=== PATIENT | female | born 1955 | race Caucasian/White ===

== ENCOUNTER 2019-12-12 07:41 | Emergency (ER) | payer BC, SELFPAY ==
--- NOTE | ~2019-12-12 | XR_ITS ---
XR shoulder RT min 2V DATE: 12/12/2019 08:10 INDICATION: Fall 4 weeks ago. Persistent shoulder pain TECHNIQUE: 4 views COMPARISON: None FINDINGS: No fracture or dislocation, periosteal reaction or bone destruction or abnormal soft tissue calcification of the right shoulder. Diffuse osteopenia. There is scoliosis and diffuse idiopathic skeletal hyperostosis of the thoracic spine. IMPRESSION: Osteopenia No fracture or dislocation of the right shoulder Reviewed, dictated and finalized at location A.
[2019-12-12 07:45] VITALS: BP 129/52; PULSE 72; RESP 17; TEMP 36.5; O2SAT 96
--- NOTE | 2019-12-12 07:55 | ECG_ITS ---
Measurements Intervals [place] Rate: 75 P: 55 UT: 191 QRS: 22 QRSD: 158 T: 5 QT: 395 QTc: 443 Interpretive Statements SINUS RHYTHM RIGHT BUNDLE BRANCH BLOCK BASELINE WANDER- I, II, AVR, AVL, V1 ABNORMAL ECG Electronically Signed On 12-12-2019 8:18:23 CDT by Juan Sarmiento D.O.
--- NOTE | 2019-12-12 08:00 | ED.GENADULT ---
HPI - General Adult General Chief complaint: Extremity Injury, Upper Stated complaint: fall 4 wks ago/arm pain Time Seen by Provider: 12/12/19 07:47 Source: patient Mode of arrival: ambulatory Limitations: no limitations History of Present Illness HPI narrative: Patient is a 64-year-old female who presents for evaluation of right upper shoulder pain. Patient reports had a ground-level fall 4 weeks ago after slipping over a water bucket in her yard, and hitting her head. Patient sustained a small laceration to her right eye, experienced some shoulder pain, but had no loss of consciousness. Patient states that she has had intermittent right shoulder pain, worsened with movement since that fall. Pain sometimes radiates down the back of the arm into the elbow. She denies any neck pain. No current pain in her jaw. No chest pain, shortness of breath. No numbness or weakness. Patient has been ambulatory, she is able to hold objects, but notes if she raises her arm it elicits pain. She has been taking diclofenac with some improvement in her symptoms. Related Data Home Medications Medication Instructions Recorded Confirmed aspirin 81 mg tablet 81 mg PO DAILY 09/11/19 bupropion HCl 100 mg tablet,12 hr 100 mg PO BID 09/11/19 sustained-release cholecalciferol (vitamin D3) 25 1,000 unit PO DAILY 09/11/19 mcg (1,000 unit) tablet clotrimazole-betamethasone 1 1 applic TOPICAL BID 09/11/19 %-0.05 % topical cream conjugated estrogens 0.625 mg/gram 0.625 mg VAGINAL 2XW gm 09/11/19 vaginal cream cyanocobalamin (vitamin B-12) See Rx Instructions SUB-Q .COMPLEX 09/11/19 1,000 mcg/mL injection solution ergocalciferol (vitamin D2) 1,250 50,000 unit PO .COMPLEX 09/11/19 mcg (50,000 unit) capsule lancets 30 gauge #25 each 09/11/19 lansoprazole 15 mg capsule,delayed 15 mg PO DAILY 09/11/19 release latanoprost 0.005 % eye drops 1 drop EACH EYE QPM ml 09/11/19 levothyroxine 150 mcg tablet 150 mcg PO DAILY 09/11/19 meloxicam 7.5 mg tablet 7.5 mg PO DAILY 09/11/19 pravastatin 20 mg tablet 20 mg PO .COMPLEX 09/11/19 trazodone 50 mg tablet See Rx Instructions PO .COMPLEX 09/11/19 tablet Allergies Allergy/AdvReac Type Severity Reaction Status Date / Time morphine AdvReac Unknown Nausea and Verified 12/12/19 07:48 Vomiting Review of Systems Review of Systems: Narrative: CONSTITUTIONAL: Denies fever CARDIOVASCULAR: Denies chest pain RESPIRATORY: Denies cough or dyspnea. GASTROINTESTINAL: Denies abdominal pain SKIN: Denies rash MUSCULOSKELETAL: Reports right shoulder pain, denies upper, cervical neck pain, lower back pain NEUROLOGIC: Denies headache [facility] Past Medical History Medical History Diabetes mellitus FH: cholecystectomy (~1999) HLD (hyperlipidemia) HTN (hypertension) Hypothyroidism (acquired) Surgical History Surgical History H/O section (~1978) H/O section (~1983) H/O gastric bypass (~2006) H/O thyroidectomy Hx of cardiac cath (~2010) S/P foot surgery, left Family History Family History Father Family history of coronary artery disease Lung cancer Liver cancer COPD (chronic obstructive pulmonary disease) Mother Family history of chronic obstructive pulmonary disease Family history of congestive heart failure Social History Social History Smoking status: Never smoker Alcohol intake: never Exam Narrative: Exam Narrative: GENERAL: Awake, alert, conversant HEAD: Normocephalic, atraumatic. Spine: No cervical spine tenderness, no thoracic midline tenderness, no lumbar midline tenderness, no paraspinal tenderness of the cervical, thoracic or lumbar spine EYES: PERRLA and EOMI. ENT: Nares clear, no rhinorrhea or epistaxis. Mucous membranes mo
== END 2019-12-12 08:52 | disposition home or self-care (01) ==
PROVIDERS: Emergency Provider Emergency Medicine; PCP Emergency Medicine
DX: S46.911A Strain of unspecified muscle, fascia and tendon at shoulder and upper arm level, right arm, initial encounter (principal); I45.10 Unspecified right bundle-branch block; E11.9 Type 2 diabetes mellitus without complications; E78.5 Hyperlipidemia, unspecified; I10 Essential (primary) hypertension; E89.0 Postprocedural hypothyroidism; Z98.84 Bariatric surgery status; Z79.82 Long term (current) use of aspirin; W01.10XA Fall on same level from slipping, tripping and stumbling with subsequent striking against unspecified object, initial encounter
CPT/HCPCS: 73030; 93005; 99283

== ENCOUNTER 2020-06-04 08:36 | Outpatient (CLI) | payer BC, SELFPAY ==
--- NOTE | ~2020-06-04 | MM_ITS ---
EXAMINATION: MM screening [facility] BI w jr HISTORY: Screening mammogram, family history of breast cancer in her sister. TECHNIQUE: Craniocaudal and mediolateral oblique 3-D tomosynthesis images were obtained and synthetic 2-D images were generated. CAD analysis was submitted and interpreted. COMPARISON: 05/10/2019, 05/04/2018, 04/30/2017 BREAST PARENCHYMAL COMPOSITION: There are scattered areas of fibroglandular density. FINDINGS: A stable intramammary lymph node is noted in the upper outer quadrant of the right breast. There is no evidence of suspicious mass, calcification, or architectural distortion to suggest malign den in either breast. There has been no suspicious interval change. IMPRESSION: 1. No mammographic evidence of malignancy. 2. Recommend routine screening mammography in one year. BI-RADS Category 2: Benign finding(s). Reviewed, dictated and finalized at location A. LOGY MANAGER
== END 2020-06-04 08:37 | disposition home or self-care (01) ==
LOC: ANHIMG 08:38
PROVIDERS: PCP Emergency Medicine; Visit Provider Nurse Practitioner
DX: Z12.31 Encounter for screening mammogram for malignant neoplasm of breast (principal)
CPT/HCPCS: 77063; 77067

== ENCOUNTER 2020-07-01 07:53 | Outpatient (CLI) | payer MEDICARE, BC, SELFPAY ==
--- NOTE | 2020-08-14 13:19 | WPDHOMESLEEP ---
Sleep Study - Home Unattended Date of Study: 07/01/20 Ordering Provider: Alaina Bueno MD Interpreting Physician: Alaina Bueno MD Home Sleep Study Type: Apnea Link Air Height: 1.63 m Weight: 127.006 kg Body Mass Index: 48.0 Neck Circumference (inches): 14 [place]: 17 Reason for Sleep Study Hypersomnolence Sleep History Danita Atkins is a 65 year old female with constant, loud snoring that is severe enough to bother others. She falls asleep early in the evening around 7:30 p.m., then she wakes up to take her medications as well as drinking water, and sometimes having a small meal before returning to sleep around 1:00 - 2:00 a.m. She wakes up at 5:00 a.m. to take medications. She wakes up additionally throughout the night. She has a sister that has sleep disordered breathing. She has tried trazodone in the past to help improve her sleep quality. she occasionally awakens diet with heartburn, belching or coughing. She never awakens from sleep feeling short of breath. She frequently has trouble sleeping with a cold. She never gasps for breath at night. She occasionally has breathing problems at night observed by others. She rarely sweats excessively at night. She never notices her heart pounding or beating irregularly at night. She occasionally falls asleep during the day, occasionally involuntarily, never while driving. She does not have loss of muscle tone with strong emotion. She does not have daytime difficulties due to excessive sleepiness, currently is retired. She does not feel paralyzed on waking or falling asleep and does not have vivid dreamlike scenes upon awakening or falling asleep. She is never a freight to go to sleep. She does not have nightmares. She does not remember her dreams. She frequently has racing thoughts, feelings of sadness, depression and anxiety. She occasionally has muscular tension in her legs. She never notices parts of her body jerking. She occasionally has aching feelings in her legs at night. She needs a left knee replacement and does have pain associated with this bad joint. She does not have morning jaw pain. She has right shoulder pain during the day. She frequently is awakened by pain at night. She rarely wakes up with pain in the neck and spine. She has fatigue, takes trazodone. She has memory problems and essential tremors. She takes antacids regularly. She has depression and hypertension. Normal bedtime is 11:00 p.m. falling asleep quickly, typically waking at least twice at night. The amount of time she stays awake varies. When she awakens, she drinks hot tea or coffee and plays games on her telephone. She returns to sleep and then wakes between 5 and 6:00 a.m.. On the weekends she may go to sleep later. Her bedtime will be between 11:00 p.m. and 2:00 a.m.. On weekends, she still wakes between 5:00 a.m. and 6:00 a.m.. She has to take her meds as soon as she wakes up. She estimates 5 hours of sleep at night. She does take naps in the evening, falling asleep easily. She does not usually feel refreshed after a short 10 or 15 minute nap. She is usually drowsy in the morning for 3 hours or longer. Mornings are really a bad time of day for her. She feels better in the afternoon. Habits: Never smoked tobacco. Caffeine 2 cups of coffee and 2 diet Cokes daily. She also drinks hot tea. No alcohol or recreational drugs. [facility] Past Medical History Medical History (Updated 08/14/20 @ 13:49 by Alaina Bueno MD) Depression Diabetes mellitus FH: cholecystectomy (~1999) Glaucoma HLD (hyperlipidemia) HTN (hypertension) Hypothyroidism (acquired) Neuropathy Surgical History Surgical History H/O section (~1978) H/O section (~1983) H/O gastric bypass (~2006) H/O thyroidectomy Hx of cardiac cath (~2010) S/P foot surgery, left Family History Family History
[2020-08-14 13:52] VITALS: BMI 48.0
== END 2020-07-01 07:54 | disposition home or self-care (01) ==
LOC: ANHCSM 07:54
PROVIDERS: PCP Emergency Medicine; Visit Provider Internal Medicine Critical Care Medicine
DX: G47.33 Obstructive sleep apnea (adult) (pediatric) (principal); Z72.821 Inadequate sleep hygiene; R06.83 Snoring; R40.0 Somnolence
CPT/HCPCS: 95806

== ENCOUNTER → 2020-08-31 00:37 | Outpatient (CLI) | payer MEDICARE, BC, SELFPAY ==
[2020-08-31 20:39] LABS: SARS-CoV-2 RNA PCR Negative
== END ==
PROVIDERS: Family Provider Internal Medicine; PCP Emergency Medicine; Visit Provider Internal Medicine Critical Care Medicine
DX: Z01.812 Encounter for preprocedural laboratory examination (principal); Z20.822 Contact with and (suspected) exposure to COVID-19
CPT/HCPCS: C9803; U0003; U0005

== ENCOUNTER 2021-07-01 13:31 | Outpatient (CLI) | payer MEDICARE, BC, SELFPAY ==
--- NOTE | ~2021-07-01 | MM_ITS ---
EXAMINATION: MM screening [facility] BI w jr HISTORY: Screening TECHNIQUE: Craniocaudal and mediolateral oblique 3-D tomosynthesis images were obtained and synthetic 2-D images were generated. CAD analysis was submitted and interpreted. COMPARISON: Comparison to multiple prior studies sequentially, with oldest reviewed study dated 10/2014. BREAST PARENCHYMAL COMPOSITION: There are scattered areas of fibroglandular density. FINDINGS: There is no evidence of suspicious mass, calcification, or architectural distortion to sugg est malignancy in either breast. There has been no suspicious interval change. IMPRESSION: 1. No mammographic evidence of malignancy. 2. Recommend routine screening mammography in one year. BI-RADS Category 1: Negative Reviewed, dictated and finalized at location A. TOR TECH
== END 2021-07-01 13:32 | disposition home or self-care (01) ==
LOC: ANHIMG 13:35
PROVIDERS: PCP Emergency Medicine; Visit Provider Nurse Practitioner
DX: Z12.31 Encounter for screening mammogram for malignant neoplasm of breast (principal)
CPT/HCPCS: 77063; 77067

== ENCOUNTER 2021-11-03 12:30 | Outpatient (RCR) | payer BC, SELFPAY ==
--- NOTE | 2021-10-06 12:31 | PTOPEVAL ---
PHYSICAL THERAPY INITIAL EVALUATION. Thank you for referring Danita Atkins to [facility] [place] The patient is scheduled to be seen for therapy? 2x/week for 4 weeks. Please review, sign, date and return this plan of care JYOTI. I agree with and certify that the following plan of care is medically necessary. Referring Physician Date Attending Provider: Kiran Ly MD *PT Outpatient Evaluation Start: 10/06/21 Evaluation Information Diagnosis R shoulder pain Onset 2 years ago Subjective Information Pt states about 2 years ago, Query Text:As Reported By Patient/ she tripped and fell over a Family case of water in her kitchen and must have hit her shoulder . She got an x-ray when her fall occurred, and no fractures or breaks were reported. Today , she is still having pain. She reports pain at rest, and increased pain with movements, particularly overhead movements. Pt states ice, heat , and medication help with the pain but it is only temporary relief. Pain Assessment Right Shoulder(s) Reported Pain Level 3 Pain Description Aching,Dull,Pulling Pain Frequency Acute,Intermittent Lowest Pain Intensity 1 Greatest Pain Intensity 5 Pain Aggravating Factors Lifting Upper Extremity Range of Motion Right Scapular: Retraction Hypomobile Shoulder Flexion - Active 120 Shoulder Flexion - Passive 160 Shoulder Abduction - Active 115 Shoulder Medial Rotation - Passive 50 Shoulder Medial Rotation - Active T8 Shoulder Lateral Rotation - Passive 50 Shoulder Lateral Rotation - Active T3 Scapular/Shoulder Range of Motion L shoulder medial rotation T6 Comments L shoulder lateral rotation T4 L shoulder flexion 130 L shoulder abduction 122 Upper Extremity Muscle Strength Testing Gross Upper Extremity Strength Comments L shoulder strength grossly 4/5 L shoulder ER 4-/5 Scapular/Shoulder Right Shoulder Flexion Strength 4 Good Shoulder Abduction Strength 4- Good - Shoulder Medial Rotation Strength 4- Good - Shoulder Lateral Rotation Strength 3+ Fair + Shoulder Strength Comments Functional assessment: Increased upper trap activation and shoulder elevation present during forward flexion
--- NOTE | 2021-10-16 10:20 | PCPTNOTE ---
Patient called & cancelled scheduled appointment this date due to scheduling conflicts.
--- NOTE | 2021-11-03 13:06 | PTOPEVAL ---
PHYSICAL THERAPY PROGRESS REPORT AND DISCHARGE NOTE. Thank you for referring Danita Atkins to [facility].? The patient is to be discharged from skilled physical therapy services at this time. Please review, sign, date and return this plan of care JYOTI. I agree with and certify that the following plan of care is medically necessary. Referring Physician Date Attending Provider: Kiran Ly MD Evaluation Information Diagnosis R shoulder pain Onset 2 years ago Subjective Information Pt states overall her should Query Text:As Reported By Patient/ pain has gotten better. She Family states she know has recognized what causes her pain and is working on avoid these positions with better body mechanics and posture. She states when her shoulder catches her she has to stop what she is doing and give it a break. She states when she is done with an activity the pain with subside quickly. Pt states when her shoulder catches it is a 7/10 but this is very brief and is relieved with activity. Pain Assessment Pain Score Pain Score 0: Self Report Upper Extremity Range of Motion Right Scapular: Retraction Hypomobile Shoulder Flexion - Active 148 Shoulder Abduction - Active 136 Shoulder Medial Rotation - Passive 50 Shoulder Medial Rotation - Active T8 Shoulder Lateral Rotation - Passive 50 Shoulder Lateral Rotation - Active T4 Scapular/Shoulder Range of Motion L shoulder medial rotation T6 Comments L shoulder lateral rotation T4 L shoulder flexion 150 L shoulder abduction 155 Upper Extremity Muscle Strength Testing Gross Upper Extremity Strength Comments L shoulder strength grossly 4/ 5 R shoulder flexion 4/5 R shoulder abduction 4/5 B IR 4+/5 B shoulder ER 4/5 Posture Head/C-Spine Posture Flexed,Forward Head Thoracic Spine Posture Flattened,Increased Kyphosis Lumbar Spine Posture Flattened Shoulder Posture (L) Rounded,(R) Rounded,(L) Forward,(R) Forward Scapula Posture (R) Protracted,(R) Rotated Up Special Tests-Upper Extremity Empty Can (supraspinatus) Test Negative Left,Negative Right Painful Arc Negative Left,Negative Right, Frances'
== END 2021-11-04 12:04 | disposition home or self-care (01) ==
LOC: ANHPT 12:30
PROVIDERS: PCP Emergency Medicine; Referring Provider Emergency Medicine; Visit Provider Emergency Medicine
DX: M25.519 Pain in unspecified shoulder (principal)
CPT/HCPCS: 97110; 97112; 97161; 97530

== ENCOUNTER 2022-03-06 17:49 | Emergency (ER) | payer BC, SELFPAY ==
--- NOTE | ~2022-03-06 | CT_ITS ---
EXAMINATION: CT abdomen pelvis wo con DATE: 03/06/2022 19:16 INDICATION: Urinary tract infection. Urinary urgency. History of kidney stones. TECHNIQUE: Computed tomography (CT) of the abdomen and pelvis was performed without intravenous contr ast. The dose-length product was 894.30 mGy-cm. Automated exposure control and iterative reconstructi on technique were employed. COMPARISON: CT dated 11/14/2015. FINDINGS: Lung bases unremarkable. Heart size normal. No significant pleural or pericardial effusion. There are surgical changes of gastric bypass with hiatal hernia. Status post cholecystectomy. There are multiple right renal cysts. There is moderate right hydroureteronephrosis. No obstructing stone o r mass. Bladder is decompressed. No left hydronephrosis. There is a 12 mm left renal stone which is n onobstructing. Nonobstructive bowel gas pattern. No significant vascular abnormality. No lymphadenopa thy. No abnormal pelvic masses or fluid collections. No free air or free fluid. IMPRESSION: 1. Moderate right hydroureteronephrosis to the UVJ, possibly secondary to edema from recently passed stone. 2: Nonobstructing left nephrolithiasis Reviewed, dictated and finalized at location A.
[2022-03-06 17:59] VITALS: BP 111/56; PULSE 90; RESP 16; TEMP 36; O2SAT 100
[2022-03-06 18:18] LABS: Appearance Urine Clear (Clear); Bilirubin Urine Negative (Negative); Blood Urine 3+ (Negative); Color Urine Yellow (Yellow); Glucose Urine UA Negative (Negative); Ketones Urine Negative (Negative); Leukocyte Esterase Ur 2+ LEU/UL (Negative); Nitrate Urine Negative (Negative); Protein Urine 2+ mg/dL (Negative); Urobilinogen Urine 0.2 mg/dL (<2.0); pH Urine 5.5 (5.0-9.0)
[2022-03-06 18:30] LABS: Bacteria Urine Trace /hpf; Mucus Urine Rare /lpf; RBC Urine >75 /hpf (0-2); Squamous Epithelial Cell Urine Occasional /hpf (Few); WBC Urine 51-75 /hpf
--- NOTE | 2022-03-06 18:30 | ED.FEMALEGU ---
HPI - Female Genitourinary General Chief complaint: Urogenital-Female Stated complaint: uti Time Seen by Provider: 03/06/22 18:08 Source: patient Mode of arrival: ambulatory Limitations: no limitations History of Present Illness HPI Narrative: This is a 66 year old female that presents to the ER for dysuria present over the last week. Reports she was seen by her PCP and diagnosed with a UTI. She has had some associated intermittent right flank pain. Reports she has finished her Macrobid with continued discomfort. While in the waiting room patient actually passed a large kidney stone trying to give her urine sample. Reports history of kidney stones. She has seen Dr. Loya in the past. Denies fever or vomiting. Related Data Home Medications Medication Instructions Recorded Confirmed aspirin 81 mg tablet 81 mg PO DAILY 09/11/19 09/24/21 lancets 30 gauge (PriztagTouch Delica #25 ea 09/11/19 09/24/21 Plus Lancet) lansoprazole 15 mg capsule,delayed 15 mg PO DAILY 09/11/19 09/24/21 release latanoprost 0.005 % eye drops 1 drop ophthalmic (eye) QPM 09/11/19 09/24/21 levothyroxine 150 mcg tablet 150 mcg PO DAILY 09/11/20 09/24/21 Allergies Allergy/AdvReac Type Severity Reaction Status Date / Time morphine AdvReac Unknown Nausea and Verified 03/06/22 18:26 Vomiting Review of Systems Review of Systems: CONSTITUTIONAL: Denies fever GASTROINTESTINAL: Reports abdominal pain. Denies nausea, vomiting GENITOURINARY: Reports dysuria. Denies hematuria. SKIN: Denies rash or itching. MUSCULOSKELETAL: Denies back pain, joint pain, or myalgia. NEUROLOGIC: Denies headache, numbness, or weakness. PSYCHIATRIC: Denies anxiety or depression. All systems reviewed & are unremarkable except as noted in HPI and below [facility] Past Medical History Medical History Anemia Benign familial tremor Blood glucose elevated BMI 45.0-49.9, adult Chronic sinusitis Depression Diabetes mellitus FH: cholecystectomy (~1999) Glaucoma History of colon polyps History of kidney stones HLD (hyperlipidemia) HTN (hypertension) Hyperparathyroidism Hypothyroidism (acquired) Injury of digital nerve of right index finger, initial encounter Iron deficiency anemia Kidney stones Multiple fractures of ribs, right side, initial encounter for closed fracture Neuropathy Parathyroid adenoma Parkinson disease Thyroid nodule Vitamin D deficiency Surgical History Surgical History H/O section (~1978) H/O section (~1983) H/O gastric bypass (~2006) H/O thyroidectomy Hx of cardiac cath (~2010) S/P foot surgery, left Family History Family History Father Family history of coronary artery disease Lung cancer Liver cancer COPD (chronic obstructive pulmonary disease) Mother Family history of chronic obstructive pulmonary disease Family history of congestive heart failure Social History Social History Smoking status: Never smoker Alcohol intake: never Substance use: never Exam Narrative: GENERAL: Well-appearing, well-nourished, and in no acute distress. HEAD: Normocephalic, atraumatic. EYES: EOMI. CHEST: Clear to auscultation. No respiratory distress. No wheezes rales or rhonchi HEART: Regular rate and rhythm. No murmur heard. Normal peripheral pulses. ABDOMEN: Soft, nontender, nondistended, normal active bowel sounds. No CVA tenderness EXTREMITIES: Normal range of motion. No edema. SKIN: Warm, dry, no rash. NEURO: No focal deficits. Alert and oriented x3. PSYCH: Normal mood and affect Course Vital Signs Vital signs: Vital Signs Temperature 96.8 F L 03/06/22 17:59 Pulse Rate 90 03/06/22 17:59 Respiratory Rate 16 03/06/22 17:59 Blood Pressure 111/56 L 03/06/22 17:59 Pulse Oximetry 100 03/06
[2022-03-06 18:32] LABS: Add Urine Microscopic? YES
[2022-03-06 18:39] LABS: Basophils Absolute Auto 0.1 K/mm3 (0.0-0.1); Basophils Percent Auto 0.9 % (0.2-1.2); Eosinophils Absolute Auto 0.1 K/mm3 (0-0.3); Eosinophils Percent Auto 2.4 % (0-4.4); Hematocrit 33.6 % (37.0-47.0); Hemoglobin 10.1 g/dL (12.0-15.0); Immature Granulocyte Absolute 0.02 K/mm3 (0.00-0.031); Immature Granulocyte Percent A 0.3 % (0-0.5); Lymphocytes Absolute Auto 1.62 K/mm3 (0.9-3.2); Lymphocytes Percent Auto 28.1 % (18.3-44.2); Mean Corpuscular HGB Conc 30.1 g/dl (32-36); Mean Corpuscular Hemoglobin 27.8 pg (26-34); Mean Corpuscular Volume 92.6 fl (80-100); Monocytes Absolute Auto 0.5 K/mm3 (0.1-0.6); Monocytes Percent Auto 9.2 % (2.6-8.5); Neutrophils Absolute Auto 3.4 K/mm3 (1.3-6.7); Neutrophils Percent Auto 59.1 % (45.5-73.1); Platelet Count Result 272 k/mm3 (150-375); Red Blood Count 3.63 M/mm3 (4.2-5.4); Red Cell Distribution Width 14.8 % (11.5-14.5); White Blood Count 5.8 K/mm3 (4.5-10.0)
--- NOTE | 2022-03-06 18:42 | PC.NURSE ---
kidney stone sent to lab and lab aware specimen sent
[2022-03-06 18:48] LABS: Anion Gap 7 mmol/L (8-16); Blood Urea Nitrogen 28 mg/dL (7-17); Calcium 9.7 mg/dL (8.4-10.2); Carbon Dioxide 28 mmol/L (22-30); Chloride 103 mmol/L (98-107); Estimated CRCL calculation 55 ml/min; Estimated Glomerular Filt Rate 50; Glucose 115 mg/dL (65-110); Sodium 138 mmol/L (137-145)
--- NOTE | 2022-03-06 18:58 | PC.NURSE ---
LAB STATES THAT THEY CANNOT SEE ORDER FOR KIDNEY STONE ANALYSIS ALTHOUGH MULTIPLE PROVIDERS AND PLANT NURSERY WORKER SEE ORDER IN [facility]. LAB REQUESTS WHITE PAPER ORDER SHEET BE COMPLETED AND SENT TO LAB. WRITTEN ORDER COMPLETED BY PLANT NURSERY WORKER AND SENT TO LAB AT 1900. CARBON COPY WITH PT'S ED CHART
[2022-03-06] MEDS: CEPHALEXIN 500 MG CAPSULE PO (20:09)
[2022-03-06 20:15] VITALS: BP 130/76; PULSE 82; RESP 16; TEMP 36.8; O2SAT 99
== END 2022-03-06 20:17 | disposition home or self-care (01) ==
PROVIDERS: Physician Assistant; Emergency Provider General Practice; PCP Emergency Medicine
DX: N13.2 Hydronephrosis with renal and ureteral calculous obstruction (principal); N30.01 Acute cystitis with hematuria; G20 Parkinson's disease; E11.40 Type 2 diabetes mellitus with diabetic neuropathy, unspecified; D50.9 Iron deficiency anemia, unspecified; E55.9 Vitamin D deficiency, unspecified; J32.9 Chronic sinusitis, unspecified; H40.9 Unspecified glaucoma; E89.0 Postprocedural hypothyroidism; Z87.442 Personal history of urinary calculi; Z86.010 Personal history of colon polyps; Z79.82 Long term (current) use of aspirin; Z98.84 Bariatric surgery status; Z79.84 Long term (current) use of oral hypoglycemic drugs
CPT/HCPCS: 36415; 74176; 80048; 81001; 82365; 85025; 87086; 88300; 99284; A9270

== ENCOUNTER 2022-03-26 09:40 | Outpatient (CLI) | payer BC, SELFPAY ==
--- NOTE | ~2022-03-26 | XR_ITS ---
EXAMINATION: XR abdomen/kub 1V DATE: 03/26/2022 10:09 INDICATION: Calculus of kidney. TECHNIQUE: A supine view of the abdomen on 3 radiographs was obtained. COMPARISON: CT abdomen and pelvis 03/06/2022 FINDINGS: There are no dilated loops of bowel. Surgical clips in the right upper quadrant are likely from cholecystectomy. There are surgical changes of the stomach. There are phleboliths in the pelvis. There is a 15 mm stone in left kidney. IMPRESSION: 1. 15 mm left kidney stone. Reviewed, dictated and finalized at location A. IMPRESSION: 1. 15 mm left kidney stone.
== END 2022-03-26 09:41 | disposition home or self-care (01) ==
PROVIDERS: PCP Emergency Medicine; Visit Provider Urology
DX: N20.0 Calculus of kidney (principal)
CPT/HCPCS: 74018

== ENCOUNTER 2022-04-21 12:37 | Outpatient (CLI) | payer BC, SELFPAY ==
--- NOTE | 2022-04-21 12:51 | ECG_ITS ---
Measurements Intervals [place] Rate: 66 P: 59 AL: 182 QRS: -7 QRSD: 151 T: 26 QT: 406 QTc: 428 Interpretive Statements SINUS RHYTHM VENTRICULAR PREMATURE COMPLEX RIGHT BUNDLE BRANCH BLOCK BASELINE ARTIFACT- I, II, III, AVR, AVL, AVF, V3-V6 ABNORMAL ECG COMPARED TO ECG 12/12/2019 08:04:24 NO SIGNIFICANT CHANGES Electronically Signed On 04-21-2022 13:16:34 CDT by Juan Sarmiento D.O.
[2022-04-21 14:00] LABS: Prothrombin Time 13.1 Seconds (11.1-14.7)
== END 2022-04-21 12:38 | disposition home or self-care (01) ==
PROVIDERS: PCP Emergency Medicine; Visit Provider Urology
DX: Z01.818 Encounter for other preprocedural examination (principal); N20.0 Calculus of kidney; E11.9 Type 2 diabetes mellitus without complications; I45.10 Unspecified right bundle-branch block; I49.3 Ventricular premature depolarization
CPT/HCPCS: 36415; 85610; 85730; 87086; 93005

== ENCOUNTER 2022-04-24 01:20 | Day surgery (SDC) | payer BC, SELFPAY ==
[2022-04-21 10:59] VITALS: BMI 41.9
--- NOTE | 2022-04-21 11:11 | PC.NURSE ---
PRE-OP INSTRUCTIONS, PLEASE READ CAREFULLY Report to the Outpatient Waiting Room, entrance under the green pavilion located off [facility], at time _1000_ on date _04/24/22_. OR Time: _1200_. Time changes happen often and if your time is changed the preop area will call you the afternoon before. - You and your visitor will be asked to self-screen and do not enter if you have any COVID symptoms. - Only one visitor and NO children visitors are allowed at this time. - The patient visitor is requested to leave or wait in car when not with patient due to restrictions. - A mask is required within the hospital. Patients may have clear liquids (water, carbonated beverages, clear teas, apple juice) until 3 hours prior to surgery (0900 AM) with a maximum of 20 ounces. - No food from midnight until time of surgery Take the following medications with a SIP of water the morning of surgery: _DULOXETINE,GABAPENTIN, LEVOTHYROXINE, METOPROLOL_ Medications to discontinue per physician _PT STATES STOPPING ASPIRIN 04/20/22_ Please no make-up, nail upper sorbian, hairspray, perfume, deodorant, or body powder the day of surgery. No jewelry (including any body piercings) or valuables the day of surgery, leave them at home. Please take a shower or bath the night before, or the morning of, surgery with an antibacterial soap. Wear comfortable, loose fitting clothing. - Jewelry must be removed prior to entering the operating room. Rings and piercings that are not removed may be cut off. - The hospital will not accept responsibility for valuables. - Please leave all valuables, including medications, at home the day of surgery. If you are going home after surgery, a licensed city bus driver must drive you home. - NO public transportation without another adult. - We recommend that an adult stay with you for 24 hours following discharge. - We also recommend that you do not drive, make important decision, drink alcoholic beverages, or take any drugs that were not prescribed by your health care provider for at least 24 hours after your discharge time. Follow any additional instructions given to you from your surgeon. If you or anyone in your household have experienced Covid symptoms in the past week, please notify your surgeon or the nurse liaison at the phone number below for possible testing. Telephone instructions given to __PT and asked if any additional questions and then verbalized understanding. Patient advised to call surgeon office or pre surgery nurse liaison [phone] if any additional questions.
--- NOTE | 2022-04-23 15:34 | WPDANESEPPF ---
Anes - Initial Pre Proc Eval Procedure: Operation Date: 04/24/22 11:00 Proposed Procedures p Left Renal Extracorporeal Shock Wave Lithotripsy, - Arthur Loya MD s Cystoscopy, Left Retrograde Pyelogram, Left Stent Placement - Arthur Loya MD Date/Time: 04/23/22 15:34 Surgeon: Arthur Loya MD Pre Op Diagnosis: left renal kidney stones Patient Data Age: 66 Gender: F Height: 1.63 m Weight: 110.9 kg Allergies Allergy/AdvReac Type Severity Reaction Status Date / Time morphine AdvReac Unknown Nausea and Verified 04/21/22 10:55 Vomiting Home Medications Medication Instructions Recorded Confirmed Type aspirin 81 mg tablet 81 mg PO DAILY 09/11/19 04/21/22 History lancets 30 gauge (OneTouch Delica #25 ea 09/11/19 09/24/21 History Plus Lancet) lansoprazole 15 mg capsule,delayed 15 mg PO DAILY 09/11/19 04/21/22 History release latanoprost 0.005 % eye drops 1 drop ophthalmic (eye) QPM 09/11/19 04/21/22 History blood sugar diagnostic #100 ea 12/01/19 09/24/21 Rx levothyroxine 150 mcg tablet 150 mcg PO DAILY 09/11/20 04/21/22 History gabapentin 600 mg tablet 600 mg PO TID #270 tabs 10/06/21 04/21/22 Rx metformin 500 mg tablet,extended 500 mg PO BID #180 tabs 10/06/21 04/21/22 Rx release 24 hr metoprolol succinate 50 mg 50 mg PO DAILY #90 tabs 10/06/21 04/21/22 Rx tablet,extended release 24 hr ezetimibe 10 mg tablet See Rx Instructions .Route 10/21/21 04/21/22 Rx .COMPLEX #90 tabs blood sugar diagnostic #50 ea 11/07/21 Rx candesartan 32 mg tablet 32 mg PO DAILY #90 tabs 11/11/21 04/21/22 Rx trazodone 50 mg tablet See Rx Instructions .Route 12/15/21 04/21/22 Rx .COMPLEX #180 tabs duloxetine 60 mg capsule,delayed 60 mg PO BID #180 caps 07/25/22 09/27/22 Rx release (Cymbalta) cyanocobalamin (vitamin B-12) 1,000 mcg PO DAILY 04/21/22 04/21/22 History 1,000 mcg capsule Patient hx anesthesia problems: none Family hx anesthesia problems: none Results Review: All pre-operative results and documents have been reviewed as part of the pre-operative evaluation. [facility] Past Medical History Medical History Anemia Benign familial tremor Blood glucose elevated BMI 45.0-49.9, adult Chronic sinusitis Depression Diabetes mellitus FH: cholecystectomy (~1999) Glaucoma History of colon polyps History of kidney stones HLD (hyperlipidemia) HTN (hypertension) Hyperparathyroidism Hypothyroidism (acquired) Injury of digital nerve of right index finger, initial encounter Iron deficiency anemia Kidney stones Multiple fractures of ribs, right side, initial encounter for closed fracture Neuropathy Parathyroid adenoma Parkinson disease Thyroid nodule Vitamin D deficiency Surgical History Surgical History H/O section (~1978) H/O section (~1983) H/O gastric bypass (~2006) H/O thyroidectomy Hx of cardiac cath (~2010) S/P foot surgery, left Family History Family History Father Family history of coronary artery disease Lung cancer Liver cancer COPD (chronic obstructive pulmonary disease) Mother Family history of chronic obstructive pulmonary disease Family history of congestive heart failure Social History Social History Smoking status: Never smoker Second hand tobacco smoke exposure: No Alcohol intake: never Substance use: never Substance use type: does not use Living arrangements: with family Additional living arrangements comments: LIVES WITH SON ADRIANE Spiritual care concerns: No Anes - Eval Final PreProcedure Day of Procedure 04/23/22 15:34 Patient weight: morbidly obese Heart: regular rate and rhythm Lungs: clear to auscultation and normal air movement Airway: Mallampati scale class II N
[2022-04-24] VITALS (10 sets, daily range): BP systolic 103–149; BP diastolic 47–94; PULSE 69–80; RESP 16–20; TEMP 36.6–36.9; O2SAT 99–100
--- NOTE | ~2022-04-24 | XR_ITS ---
XR abdomen/kub 1V 04/24/2022 09:09 Indication: Left-sided renal stones Procedure: KUB Comparison: Comparison to multiple prior studies sequentially, with oldest reviewed study dated 10/18. Findings: There is a stone in the lower pole of the left kidney measuring 1.6 x 1.0 cm. There are pel harshad phleboliths. Lung bases are unremarkable. Severe lower thoracic and lumbar spondylosis. Nonobstru ctive bowel gas pattern. Impression: 1: Left nephrolithiasis. Reviewed, dictated and finalized at location B. Impression: 1: Left nephrolithiasis.
--- NOTE | 2022-04-24 08:54 | WPDHPUPDATE1 ---
History and Physical Update Update Date/Time: 04/24/22 08:54 History and Physical has been reviewed, including an updated exam of the patient. There are NO changes in the patient's condition. Risks, benefits, and alternatives have been discussed and questions answered. Patient agrees to proceed with procedure. Proceed with left renal ESWL
[2022-04-24] MEDS: LACTATED RINGERS 1,000 ML 30 ML IV CONT (09:34)
[2022-04-24 09:37] LABS: Glucose Point of Care 109 mg/dl (65-105)
[2022-04-24] MEDS: ceFAZolin 2 GM/D5W 50 ML 2 GM/50 ML BAG IVPB (10:21)
[2022-04-24] MEDS: LIDOCAINE HCL 2% GEL UROJET 10 ML PKG MUCOUS MEM (10:49)
--- NOTE | 2022-04-24 11:00 | P.OP_ITS ---
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 Once anesthesia was obtained she was frog-legged and prepped and draped usual sterile fashion. Sixteen Malaysian flexible scope inserted into the urethra. There are no tumors noted. The left ureteral orifice was cannulated with a guidewire. A [place] was then inserted a pyelogram was performed. It became evident that the stone was located in the lower pole of a incompletely duplicated system. We could not manipulate wire into the lower pole ureter. As such we used a mini flexible ureteral scope to do ureteroscopy. There were no ureteral lesions noted. The bifurcation was noted in the proximal ureter. It was more medial. We were able to advance the scope into the lower pole system and placed a wire. 4.8 Malaysian contour stent was then placed with the proximal end coiled in the lower pole pelvis and the distal end in the bladder. 2% viscous lidocaine was inserted into the urethra. The stone was then localized in both planes. Two thousand five hundred shocks were given the stone. Patient is taken recovery stable condition. She will follow-up in 7-10 days with KUB. Patient may require subsequent ureteroscopy with holmium laser if the stone does not fragment. Estimated Blood Loss 0 Drains Yes Packing No Pathology None sent Complications No immediate complications Condition Stable Disposition PACU
[2022-04-24 11:20] LABS: Glucose Point of Care 103 mg/dl (65-105)
[2022-04-24] MEDS: fentaNYL CITRATE INJ (*CRX) 100 MCG/2 ML VIAL 25 MCG IV PUSH ×2 (11:36→11:42)
[2022-04-24] MEDS: oxyCODONE HCL (*CRX) 5 MG TAB IR PO (12:01)
== END 2022-04-24 13:13 | disposition home or self-care (01) ==
PROVIDERS: PCP Emergency Medicine; Visit Provider Urology
PROC: (CPT 50590; principal; 2022-04-24 11:00)
PROC: (CPT 52352; 2022-04-24 11:00)
DX: N20.0 Calculus of kidney (principal); E11.9 Type 2 diabetes mellitus without complications; E03.9 Hypothyroidism, unspecified; K21.9 Gastro-esophageal reflux disease without esophagitis; Z79.82 Long term (current) use of aspirin; I10 Essential (primary) hypertension
CPT/HCPCS: 52356; 36415; 74018; 82948; 85610; 85730; 87086; 93005; A9270; C1758; C1769; C2617; J0690; J1100; J2250; J2370; J2405; J2704; J3010; J7120; Q9966

== ENCOUNTER → 2022-05-04 10:06 | Outpatient (CLI) | payer BC, SELFPAY ==
--- NOTE | ~2022-05-04 | XR_ITS ---
EXAM: XR abdomen/kub 1V DATE: 05/04/2022 10:30 HISTORY: Calculus of kidney . COMPARISON: 04/24/2022. FINDINGS: Bibasilar scar/atelectasis. Cholecystomy clips. Surgical clip projecting over the stomach. Suture line in the left abdomen. Left ureteral stent, in good position. Normal bowel gas pattern. No organomegaly. Multiple pelvic phleboliths. The left inferior pole calculus now measures 7 x 13 mm wi th a more fragmented appearance. Degenerative changes in the lumbar spine and hips. IMPRESSION: Left nephrolithiasis, possibly with posttreatment change. Reviewed, dictated and finalized at location K.
== END ==
PROVIDERS: PCP Emergency Medicine; Visit Provider Urology
DX: N20.0 Calculus of kidney (principal)
CPT/HCPCS: 74018

== ENCOUNTER 2022-05-13 09:16 | Outpatient (CLI) | payer BC, SELFPAY ==
[2022-05-13 10:12] LABS: Anion Gap 7 mmol/L (8-16); Blood Urea Nitrogen 25 mg/dL (7-17); Calcium 9.5 mg/dL (8.4-10.2); Carbon Dioxide 30 mmol/L (22-30); Chloride 100 mmol/L (98-107); Estimated Glomerular Filt Rate > 60; Glucose 108 mg/dL (65-110); Potassium 4.1 mmol/L (3.4-5.0); Sodium 137 mmol/L (137-145)
== END 2022-05-13 09:17 | disposition home or self-care (01) ==
LOC: ANHSURGERY 09:22
PROVIDERS: Anesthesiology; PCP Emergency Medicine; Visit Provider Urology
DX: Z01.818 Encounter for other preprocedural examination (principal); E11.9 Type 2 diabetes mellitus without complications; N20.0 Calculus of kidney
CPT/HCPCS: 36415; 80048; 87086; 87088

== ENCOUNTER 2022-05-19 00:40 | Day surgery (SDC) | payer BC, SELFPAY ==
--- NOTE | 2022-05-07 13:51 | PC.NURSE ---
Report to the Outpatient Waiting Room, entrance under the green pavilion located off [facility], at time _07 on date __05/19/22 . OR Time: _914 . Time changes happen often and if your time is changed the preop area will call you the afternoon before. - You and your visitor will be asked to self-screen and do not enter if you have any COVID symptoms. - We encourage only one visitor and NO visitors under age 16 are allowed at this time. Your visitor will receive communication by the phone number that is given day of service. - The patient visitor is requested to social distance or may leave the building when not with patient due to restrictions. - A mask is required within the hospital. Patients may have clear liquids (water, carbonated beverages, clear teas, apple juice) until 3 hours prior to surgery with a maximum of 20 ounces. - No food from midnight until time of surgery - Infants may have breast milk until 4 hours before surgery, formula 6 hours prior to surgery. - Children will be allowed to drink immediately following surgery. If applicable, please bring a bottle or sippy cup to assist with drinking. Juice, water, soda, and popsicles are readily available. For infants on formula, please bring formula the day of surgery. Pacifiers are allowed. Take the following medications with a SIP of water the morning of surgery: ___DULOXETINE,GABAPENTIN,LEVOTHYROXINE AND METOPROLOL Medications to discontinue per physician ALL VITAMINS 3 DAYS PRE OP Date to take last dose__05/15/22 Please no make-up, nail comoran, hairspray, perfume, deodorant, or body powder the day of surgery. No jewelry (including any body piercings) or valuables the day of surgery, leave them at home. Please take a shower or bath the night before, or the morning of, surgery with an antibacterial soap. Wear comfortable, loose fitting clothing. Children are encouraged to wear pajamas. - Jewelry must be removed prior to entering the operating room. Rings and piercings that are not removed may be cut off. - The hospital will not accept responsibility for valuables. - Please leave all valuables, including medications, at home the day of surgery. If you are going home after surgery, a licensed city route driver must drive you home. - NO public transportation without another adult. - We recommend that an adult stay with you for 24 hours following discharge. - We also recommend that you do not drive, make important decision, drink alcoholic beverages, or take any drugs that were not prescribed by your health care provider for at least 24 hours after your discharge time. For Pediatric surgeries, we recommend two adults accompany the child home. Follow any additional instructions given to you from your surgeon. If you or anyone in your household have experienced Covid symptoms in the past week, please notify your surgeon or the nurse liaison at the phone number below for possible testing. Telephone instructions given to __PATIENT and asked if any additional questions and then verbalized understanding. Patient advised to call surgeon office or pre surgery nurse liaison [phone] if any additional questions.
[2022-05-07 15:02] VITALS: BMI 42.2
--- NOTE | 2022-05-18 12:05 | WPDANESEPPF ---
Anes - Initial Pre Proc Eval Procedure: Operation Date: 05/19/22 09:15 Proposed Procedures p Cystoscopy, Left Ureteroscopy, Possible Left Retrograde Pyelogram, Possible Left Stone Extraction, Possible Left Stent Exchange, Possible Holmium Laser Procedure - Arthur Loya MD Date/Time: 05/18/22 12:05 Surgeon: Arthur Loya MD Pre Op Diagnosis: left renal calculus Patient Data Age: 66 Gender: F Height: 1.63 m Weight: 111.6 kg Allergies Allergy/AdvReac Type Severity Reaction Status Date / Time morphine AdvReac Mild Nausea and Verified 05/19/22 07:32 Vomiting Home Medications Medication Instructions Recorded Confirmed Type lancets 30 gauge (OneTouch Delica #25 ea 09/11/19 04/24/22 History Plus Lancet) lansoprazole 15 mg capsule,delayed 15 mg PO DAILY 09/11/19 05/19/22 History release latanoprost 0.005 % eye drops 1 drop ophthalmic (eye) QPM 09/11/19 05/19/22 History blood sugar diagnostic #100 ea 12/01/19 04/24/22 Rx levothyroxine 150 mcg tablet 150 mcg PO DAILY 09/11/20 05/19/22 History gabapentin 600 mg tablet 600 mg PO TID #270 tabs 10/06/21 05/19/22 Rx metformin 500 mg tablet,extended 500 mg PO BID #180 tabs 10/06/21 05/19/22 Rx release 24 hr metoprolol succinate 50 mg 50 mg PO DAILY #90 tabs 10/06/21 05/19/22 Rx tablet,extended release 24 hr ezetimibe 10 mg tablet See Rx Instructions .Route 10/21/21 05/19/22 Rx .COMPLEX #90 tabs blood sugar diagnostic #50 ea 11/07/21 04/24/22 Rx candesartan 32 mg tablet 32 mg PO DAILY #90 tabs 11/11/21 05/19/22 Rx trazodone 50 mg tablet See Rx Instructions .Route 12/15/21 05/19/22 Rx .COMPLEX #180 tabs duloxetine 60 mg capsule,delayed 60 mg PO BID #180 caps 02/16/22 05/19/22 Rx release (Cymbalta) cholecalciferol (vitamin D3) 1,250 1,250 mcg PO WEEKLY 05/07/22 05/19/22 History mcg (50,000 unit) tablet ECG: Date of Service: 04/21/22 Procedure(s): CA 12 lead EKG Accession Number(s): [id number] cc: ~ ? Measurements Intervals? [place]? Rate: ? 66 ? P:? 59 MO: ? 182? QRS:? -7 QRSD: ? 151? T:? 26 QT: ? 406? QTc:? 428? Interpretive Statements SINUS RHYTHM VENTRICULAR PREMATURE COMPLEX RIGHT BUNDLE BRANCH BLOCK BASELINE ARTIFACT- I, II, III, AVR, AVL, AVF, V3-V6 ABNORMAL ECG COMPARED TO ECG 12/12/2019 08:04:24 NO SIGNIFICANT CHANGES Electronically Signed On 04-21-2022 13:16:34 CDT by Juan Sarmiento D.O. Patient hx anesthesia problems: none Family hx anesthesia problems: none Results Review: All pre-operative results and documents have been reviewed as part of the pre-operative evaluation. [facility] Past Medical History Medical History (Updated 05/19/22 @ 07:57 by Olivier Kilpatrick MD) Anemia Atrial fibrillation Benign familial tremor Blood glucose elevated BMI 45.0-49.9, adult Chronic sinusitis Depression Diabetes mellitus FH: cholecystectomy (~1999) Glaucoma History of colon polyps History of kidney stones HLD (hyperlipidemia) HTN (hypertension) Hyperparathyroidism Hypothyroidism (acquired) Injury of digital nerve of right index finger, initial encounter Iron deficiency anemia Kidney stones Multiple fractures of ribs, right side, initial encounter for closed fracture Neuropathy ISAIAH on CPAP Parathyroid adenoma Parkinson disease Thyroid nodule Vitamin D deficiency Surgical History Surgical History H/O section (~1978) H/O section (~1983) H/O gastric bypass (~2006) H/O thyroidectomy Hx of cardiac cath (~2010) S/P foot surgery, left Family History Family History Father Family history of ramachandran
[2022-05-19] VITALS (9 sets, daily range): BP systolic 102–134; BP diastolic 47–98; PULSE 69–74; RESP 14–18; TEMP 36.2–36.4; O2SAT 94–100
--- NOTE | ~2022-05-19 | XR_ITS ---
EXAMINATION: XR retrograde pyelo w/stent LT DATE: 05/19/2022 10:59 INDICATION: Left internal ureteral stent placement TECHNIQUE: Fluoroscopic images from a left internal ureteral stent placement are submitted for review . 29 seconds of fluoroscopy time. 3 fluoroscopic images FINDINGS: There is a left double-J internal ureteral stent projecting in expected position, with proximal [place] loop at the level of the renal pelvis. The distal loop is not visualized.. IMPRESSION: 1. Left internal ureteral stent placement. Please refer to real-time procedural findings for detail s. Reviewed, dictated and finalized at location B. IMPRESSION: 1. Left internal ureteral stent placement. Please refer to real-time procedur al findings for details.
--- NOTE | 2022-05-19 07:23 | WPDHPUPDATE1 ---
History and Physical Update Update Date/Time: 05/19/22 07:23 History and Physical has been reviewed, including an updated exam of the patient. There are NO changes in the patient's condition. Risks, benefits, and alternatives have been discussed and questions answered. Patient agrees to proceed with procedure.
[2022-05-19] MEDS: LACTATED RINGERS 1,000 ML 30 ML IV CONT (07:50)
[2022-05-19 07:55] LABS: Glucose Point of Care 100 mg/dl (65-105)
[2022-05-19] MEDS: ceFAZolin 2 GM/D5W 50 ML 2 GM/50 ML BAG IVPB (09:39)
[2022-05-19] MEDS: LIDOCAINE HCL 2% GEL UROJET 10 ML PKG MUCOUS MEM (10:11)
--- NOTE | 2022-05-19 10:54 | P.OP_ITS ---
Procedure Note - Detailed Date of Procedure 05/19/22 Pre-op Diagnosis left renal calculus Post-op Diagnosis Same Procedure Performed Cystoscopy, left retrograde pyelogram, left ureteroscopy with holmium laser, stone extraction, left ureteral stent exchange Surgeon Arthur Loya MD Anesthesia General Description of Procedure Patient is taken to the operative suite correctly identified. Once anesthesia was obtained she was placed in dorsal lithotomy position and prepped and draped usual sterile fashion. Twenty-two Cape Verdean scope was inserted the bladder. Stent was grasped and brought out to the meatus. A guidewire was inserted into it. This is in the lower pole of a duplicated system. A mini flexible ureteral scope was then inserted all the way up to the kidney. The stone was visualized in the lower pole calyx. Using a 272 micron fiber we dusted the stone. Fragments were too small to retrieve. We were able to flush out the stones from the lower pole. We then removed the flexible ureteral scope. As we did we saw larger stone which was residual from her prior lithotripsy in the distal ureter. Using escape basket we grasped that and removed in its entirety. This is sent for analysis. A 4.8 [place] Verdean contour stent was then placed with proximal coiled in the lower pole system and the distal in the bladder. Pyelogram had been performed to confirm placement of the stent. 2% viscous lidocaine was inserted into the urethra patient is taken recovery stable condition. She will follow up proximally 2 weeks for stent removal. Drains Yes Packing No Pathology Yes Complications No immediate complications Condition Stable Disposition PACU
[2022-05-19 11:34] LABS: Glucose Point of Care 113 mg/dl (65-105)
[2022-05-19] MEDS: oxyCODONE HCL (*CRX) 5 MG TAB IR PO (12:15)
== END 2022-05-19 12:40 | disposition home or self-care (01) ==
PROVIDERS: PCP Emergency Medicine; Visit Provider Urology
PROC: (CPT 52352; principal; 2022-05-19 09:15)
DX: N20.2 Calculus of kidney with calculus of ureter (principal); Q62.5 Duplication of ureter; I10 Essential (primary) hypertension; E78.5 Hyperlipidemia, unspecified; E11.40 Type 2 diabetes mellitus with diabetic neuropathy, unspecified; G20 Parkinson's disease; G47.33 Obstructive sleep apnea (adult) (pediatric); I48.91 Unspecified atrial fibrillation; F32.A Depression, unspecified; H40.9 Unspecified glaucoma; E89.0 Postprocedural hypothyroidism; D50.9 Iron deficiency anemia, unspecified; Z98.84 Bariatric surgery status; E66.01 Morbid (severe) obesity due to excess calories; Z68.41 Body mass index [BMI] 40.0-44.9, adult; Z79.84 Long term (current) use of oral hypoglycemic drugs
CPT/HCPCS: 52356; 36415; 74420; 80048; 82365; 82948; 87086; 87088; 88300; A9270; C1769; C2617; J0690; J2405; J2704; J3010; J7120; Q9966

== ENCOUNTER → 2022-06-30 12:31 | Outpatient (CLI) | payer BC, MEDICARE, SELFPAY ==
--- NOTE | ~2022-06-30 | XR_ITS ---
XR abdomen/kub 1V DATE: 06/30/2022 12:52 INDICATION: Left kidney stone follow-up TECHNIQUE: 2 AP views of the abdomen COMPARISON: 05/04/2022 KUB 03/06/2022 CT abdomen pelvis FINDINGS: Previously reported 7 x 13 mm inferior pole left renal calcified calculus is no longer pres ent. There are multiple faint ill-defined calcific densities overlying the lower pole left kidney whi ch may represent small residual stone fragments. Noncontrast CT abdomen pelvis would be more definiti ve for evaluation of urinary tract calculi. No apparent calcified calculus overlying the left ureter. Nonspecific bowel gas pattern without evidence of obstruction. Surgical clips overlie the right upper quadrants. Bowel sutures overlie left lower quadrant. IMPRESSION: Probable residual small stone fragments at lower pole of left kidney Reviewed, dictated and finalized at Location A. Reviewed, dictated and finalized at location B. LIER DIVERSITY DIRECTOR IMPRESSION: Probable residual small stone fragments at lower pole of left kidne y
--- NOTE | ~2022-06-30 | US_ITS ---
US retroperitoneal comp 06/30/2022 12:57 Procedure: Realtime transabdominal ultrasound of the kidneys and bladder. Indication: Recent left kidney stone Comparison: CT dated 03/06/2022 Findings: Renal echotexture is normal bilaterally without hydronephrosis, contour deforming mass or r enal calculus. There are right renal cysts, largest measuring 2 cm. The right kidney measures 8.7 cm and left kidney measures 11.1 cm. Bladder within normal limits. Impression: 1: Right renal cysts, largest measuring 2 cm. Reviewed, dictated and finalized at location A. 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
== END ==
PROVIDERS: PCP Emergency Medicine; Visit Provider Urology
DX: N20.0 Calculus of kidney (principal); N28.1 Cyst of kidney, acquired
CPT/HCPCS: 74018; 76770

== ENCOUNTER 2022-09-03 07:58 | Outpatient (CLI) | payer MEDICARE, BC, SELFPAY ==
--- NOTE | ~2022-09-03 | MM_ITS ---
EXAMINATION: MM screening susie BI w jr HISTORY: Screening mammogram TECHNIQUE: Craniocaudal and mediolateral oblique 3-D tomosynthesis images were obtained and synthetic 2-D images were generated. CAD analysis was submitted and interpreted. COMPARISON: 07/01/2021, 06/04/2020, 05/10/2019 bilateral screening mammogram examinations BREAST PARENCHYMAL COMPOSITION: There are scattered areas of fibroglandular density. FINDINGS: Stable benign circumscribed intramammary lymph node, posterior upper outer right breast. Th ere is no evidence of suspicious mass, calcification, or architectural distortion to suggest malignan cy in either breast. There has been no suspicious interval change. IMPRESSION: 1. No mammographic evidence of malignancy. 2. Recommend routine screening mammography in one year. BI-RADS Category 2: Benign finding(s). Reviewed, dictated and finalized at location A. ASSEMBLY SUPERVISOR
== END 2022-09-03 07:59 | disposition home or self-care (01) ==
LOC: ANHIMG 08:00
PROVIDERS: PCP Emergency Medicine; Visit Provider Nurse Practitioner
DX: Z12.31 Encounter for screening mammogram for malignant neoplasm of breast (principal)
CPT/HCPCS: 77063; 77067

== ENCOUNTER 2023-02-25 01:45 | Day surgery (SDC) | payer MEDICARE, BC, SELFPAY ==
[2023-02-16 11:22] VITALS: BMI 43.1
[2023-02-25 07:03] VITALS: BP 126/70; PULSE 83; RESP 16; TEMP 36.6; O2SAT 100; BMI 43.4
[2023-02-25] MEDS: LACTATED RINGERS 1,000 ML 150 ML IV CONT (07:08)
[2023-02-25 07:10] LABS: Glucose Point of Care 114 mg/dl (65-105)
--- NOTE | 2023-02-25 07:18 | PM.HPGS ---
History of Present Illness History of Present Illness Consent: Risks, benefits, and alternatives have been discussed and questions answered. Patient agrees to proceed with procedure. Chief complaint: hx of colon polyps Narrative: Danita Atkins is a 67 year old female Presents for screening colonoscopy. Patient was found to have adenomatous colon polyps at the time of last colonoscopy 2016. Family history is significant that her sister has had colon polyps. Patient reports that her current weight appetite and bowel movements are normal. Patient presents today for screening exam. Review of Systems Review of Systems: Review of systems noncontributory. [facility] Past Medical History Medical History (Updated 02/25/23 @ 07:20 by Esteban Fagan MD) Anemia Atrial fibrillation Benign familial tremor Blood glucose elevated BMI 45.0-49.9, adult Chronic sinusitis Depression Diabetes mellitus FH: cholecystectomy (~1999) Glaucoma History of colon polyps History of kidney stones HLD (hyperlipidemia) HTN (hypertension) Hyperparathyroidism Hypothyroidism (acquired) Injury of digital nerve of right index finger, initial encounter Iron deficiency anemia Kidney stones Multiple fractures of ribs, right side, initial encounter for closed fracture Neuropathy ISAIAH on CPAP Parathyroid adenoma Parkinson disease Thyroid nodule Vitamin D deficiency Surgical History Surgical History H/O section (~1978) H/O section (~1983) H/O gastric bypass (~2006) H/O thyroidectomy Hx of cardiac cath (~2010) S/P foot surgery, left Family History Family History Father Family history of coronary artery disease Lung cancer Liver cancer COPD (chronic obstructive pulmonary disease) Mother Family history of chronic obstructive pulmonary disease Family history of congestive heart failure Social History Social History Smoking status: Never smoker Second hand tobacco smoke exposure: No Alcohol intake: never Substance use: never Substance use type: does not use Lack of Transportation: No Lack of Food: Never True Current Housing: I Have Housing Concerned About Future Housing: No Difficulty Paying Gas/Electric Bills: No Difficulty Paying for Meds: No Currently Unemployed: No Education: High School Diploma/GED Difficulty w/ Childcare or Family Care: No Living arrangements: with family Additional living arrangements comments: LIVES WITH SON ADRIANE Occupation/Education: retired Gender identity (if verbalized by the patient): Female Spiritual care concerns: No Meds Home Medications and Allergies Home Medications Medication Instructions Recorded Confirmed Type lancets 30 gauge (Ralph Rodriguez #25 ea 09/11/19 02/16/23 History Plus Lancet) lansoprazole 15 mg capsule,delayed 15 mg PO DAILY 09/11/19 02/25/23 History release latanoprost 0.005 % eye drops 1 drop ophthalmic (eye) QPM 09/11/19 02/25/23 History blood sugar diagnostic #100 ea 12/01/19 02/16/23 Rx cholecalciferol (vitamin D3) 1,250 1,250 mcg PO WEEKLY 05/07/22 02/25/23 History mcg (50,000 unit) tablet trazodone 50 mg tablet See Rx Instructions .Route 06/11/22 02/25/23 Rx .COMPLEX #180 tabs gabapentin 600 mg tablet 600 mg PO TID #270 tabs 08/03/22 02/25/23 Rx candesartan 32 mg tablet 32 mg PO DAILY #90 tabs 09/11/22 02/25/23 Rx metformin 500 mg tablet,extended 500 mg PO BID #180 tabs 09/11/22 02/25/23 Rx release 24 hr metoprolol succinate 50 mg 50 mg PO DAILY #90 tabs 09/11/22 02/25/23 Rx tablet,extended release 24 hr levothyroxine 125 mcg tablet 125 mcg PO DAILY 10/02/22 02/25/23 History venlafaxine 150 mg 150 mg PO DAILY #90 caps 11/02/22 02/25/23 Rx capsule,extended release 24 hr (Effexor XR) blood sugar diagnostic (Ralph #5
--- NOTE | 2023-02-25 07:50 | WPDANESEPPF ---
Anes - Initial Pre Proc Eval Procedure: Operation Date: 02/25/23 08:00 Proposed Procedures p Colonoscopy - Esteban Fgaan MD Date/Time: 02/25/23 07:50 Surgeon: Esteban Fagan MD Pre Op Diagnosis: hx of colon polyps Patient Data Age: 67 Gender: F Height: 1.63 m Weight: 114.7 kg Last Vital Signs Temp 97.8 F 02/25/23 07:03 Pulse 83 02/25/23 07:03 Resp 16 02/25/23 07:03 BP 126/70 02/25/23 07:03 Pulse Ox 100 02/25/23 07:03 O2 Del Method Room Air 02/25/23 07:03 Allergies Allergy/AdvReac Type Severity Reaction Status Date / Time bupropion [From Wellbutrin] AdvReac Severe Hallucinati Verified 02/25/23 06:59 ng morphine AdvReac Mild Nausea and Verified 02/25/23 06:59 Vomiting Home Medications Medication Instructions Recorded Confirmed Type lancets 30 gauge (OneTouch Delica #25 ea 09/11/19 02/16/23 History Plus Lancet) lansoprazole 15 mg capsule,delayed 15 mg PO DAILY 09/11/19 02/25/23 History release latanoprost 0.005 % eye drops 1 drop ophthalmic (eye) QPM 09/11/19 02/25/23 History blood sugar diagnostic #100 ea 12/01/19 02/16/23 Rx cholecalciferol (vitamin D3) 1,250 1,250 mcg PO WEEKLY 05/07/22 02/25/23 History mcg (50,000 unit) tablet trazodone 50 mg tablet See Rx Instructions .Route 06/11/22 02/25/23 Rx .COMPLEX #180 tabs gabapentin 600 mg tablet 600 mg PO TID #270 tabs 08/03/22 02/25/23 Rx candesartan 32 mg tablet 32 mg PO DAILY #90 tabs 09/11/22 02/25/23 Rx metformin 500 mg tablet,extended 500 mg PO BID #180 tabs 09/11/22 02/25/23 Rx release 24 hr metoprolol succinate 50 mg 50 mg PO DAILY #90 tabs 09/11/22 02/25/23 Rx tablet,extended release 24 hr levothyroxine 125 mcg tablet 125 mcg PO DAILY 10/02/22 02/25/23 History venlafaxine 150 mg 150 mg PO DAILY #90 caps 11/02/22 02/25/23 Rx capsule,extended release 24 hr (Effexor XR) blood sugar diagnostic (OneTouch #50 ea 01/11/23 02/16/23 Rx Ultra Test strips) ezetimibe 10 mg tablet See Rx Instructions .Route 02/09/23 02/25/23 Rx .COMPLEX #90 tabs aspirin 81 mg capsule 81 mg PO DAILY 02/16/23 02/25/23 History Laboratory Tests 02/25/23 07:07 POC Capillary Glucose 114 H mg/dl (65-105) Patient hx anesthesia problems: none Family hx anesthesia problems: none Results Review: All pre-operative results and documents have been reviewed as part of the pre-operative evaluation. [facility] Past Medical History Medical History (Updated 02/25/23 @ 07:20 by Esteban Fagan MD) Anemia Atrial fibrillation Benign familial tremor Blood glucose elevated BMI 45.0-49.9, adult Chronic sinusitis Depression Diabetes mellitus FH: cholecystectomy (~1999) Glaucoma History of colon polyps History of kidney stones HLD (hyperlipidemia) HTN (hypertension) Hyperparathyroidism Hypothyroidism (acquired) Injury of digital nerve of right index finger, initial encounter Iron deficiency anemia Kidney stones Multiple fractures of ribs, right side, initial encounter for closed fracture Neuropathy ISAIAH on CPAP Parathyroid adenoma Parkinson disease Thyroid nodule Vitamin D deficiency Surgical History Surgical History H/O section (~1978) H/O section (~1983) H/O gastric bypass (~2006) H/O thyroidectomy Hx of cardiac cath (~2010) S/P foot surgery, left Family History Family History Father Family history of coronary artery disease Lung cancer Liver cancer COPD (chronic obstructive pulmonary disease) Mother Family history of chronic obstructive pulmonary disease Family history of congestive heart failure Social History Social History Smoking status: Never smoker Second hand tobacco smoke exposure: No Alcohol intake: never Substance use: never Substance use type: does not use Lack of Trans
[2023-02-25 08:28] VITALS: BP 109/57; PULSE 74; RESP 20; O2SAT 98
[2023-02-25 08:38] VITALS: BP 111/63; PULSE 70; RESP 20; O2SAT 100
[2023-02-25 08:48] VITALS: BP 113/72; PULSE 75; RESP 18; O2SAT 100
== END 2023-02-25 08:59 | disposition home or self-care (01) ==
PROVIDERS: PCP Emergency Medicine; Visit Provider Internal Medicine Gastroenterology
PROC: 0DJD8ZZ Inspection of Lower Intestinal Tract, Via Natural or Artificial Opening Endoscopic (ICD-10-PCS; CPT 45378; principal; 2023-02-25 08:00)
DX: Z12.11 Encounter for screening for malignant neoplasm of colon (principal); K64.8 Other hemorrhoids; D12.2 Benign neoplasm of ascending colon; E04.1 Nontoxic single thyroid nodule; D64.9 Anemia, unspecified; I48.91 Unspecified atrial fibrillation; F32.A Depression, unspecified; E11.9 Type 2 diabetes mellitus without complications; E78.5 Hyperlipidemia, unspecified; I10 Essential (primary) hypertension; E21.3 Hyperparathyroidism, unspecified; E03.9 Hypothyroidism, unspecified; D50.9 Iron deficiency anemia, unspecified; G20 Parkinson's disease; E55.9 Vitamin D deficiency, unspecified; Z83.71 Family history of colonic polyps; Z79.84 Long term (current) use of oral hypoglycemic drugs; Z79.82 Long term (current) use of aspirin; E66.01 Morbid (severe) obesity due to excess calories; Z68.41 Body mass index [BMI] 40.0-44.9, adult
CPT/HCPCS: 45385; 82948; 88305; J2001; J2704; J7120

== ENCOUNTER 2023-07-04 07:12 | Emergency (ER) | payer MEDICARE, BC, SELFPAY ==
[2023-07-04 07:25] VITALS: BP 120/60; PULSE 105; RESP 17; TEMP 36.9; O2SAT 96
[2023-07-04 07:56] LABS: Strep Group A RT-PCR NOT DETECTED (Negative)
[2023-07-04 09:12] LABS: Influenza A QL RT-PCR Negative (Negative); Influenza B QL RT-PCR Negative (Negative); RSV RNA, RT-PCR Negative (Negative); SARS-CoV-2 RNA PCR Positive (Negative)
[2023-07-04 09:19] VITALS: BP 114/59; PULSE 107; RESP 18; TEMP 36.7; O2SAT 98
--- NOTE | 2023-07-04 09:59 | ED.URI ---
HPI - URI/Sore Throat General Chief Complaint: Upper Respiratory Infection Stated Complaint: headache, dizziness, cough Time Seen by Provider: 07/04/23 09:58 Source: patient Mode of arrival: ambulatory Limitations: no limitations History of Present Illness HPI Narrative: 68 YEARS OLD WHITE FEMALE CAME FROM HOME BY PRIVATE CAR COMPLAINING OF GENERAL BODY ACHES, JOINT PAIN, HEADACHE, SORE THROAT GENERAL WEAKNESS STARTED 2 DAYS AGO. SHE DENIES ANY FEVER, CHILLS, CHEST PAIN, SHORTNESS OF BREATH, BACK PAIN, VOMITING OR DIARRHEA. Related Data Home Medications Medication Instructions Recorded Confirmed lancets 30 gauge (Recoup Delica #25 ea 09/11/19 06/07/23 Plus Lancet) lansoprazole 15 mg capsule,delayed 15 mg PO DAILY 09/11/19 06/07/23 release latanoprost 0.005 % eye drops 1 drop ophthalmic (eye) QPM 09/11/19 06/07/23 cholecalciferol (vitamin D3) 1,250 1,250 mcg PO WEEKLY 05/07/22 06/07/23 mcg (50,000 unit) tablet levothyroxine 125 mcg tablet 125 mcg PO DAILY 10/02/22 06/07/23 aspirin 81 mg capsule 81 mg PO DAILY 02/16/23 06/07/23 Allergies Allergy/AdvReac Type Severity Reaction Status Date / Time bupropion [From Wellbutrin] AdvReac Severe Hallucinati Verified 06/07/23 10:02 ng morphine AdvReac Mild Nausea and Verified 06/07/23 10:02 Vomiting Review of Systems Review of Systems: All systems reviewed & are unremarkable except as noted in HPI and below Constitutional: Constitutional: Reports fatigue PMFSH Past Medical History Medical History Anemia Atrial fibrillation Benign familial tremor Blood glucose elevated BMI 45.0-49.9, adult Chronic sinusitis Depression Diabetes mellitus FH: cholecystectomy (~1999) Glaucoma History of colon polyps History of kidney stones HLD (hyperlipidemia) HTN (hypertension) Hyperparathyroidism Hypothyroidism (acquired) Injury of digital nerve of right index finger, initial encounter Iron deficiency anemia Kidney stones Multiple fractures of ribs, right side, initial encounter for closed fracture Neuropathy ISAIAH on CPAP Parathyroid adenoma Parkinson disease Thyroid nodule Vitamin D deficiency Surgical History Surgical History H/O section (~1978) H/O section (~1983) H/O gastric bypass (~2006) H/O thyroidectomy Hx of cardiac cath (~2010) S/P foot surgery, left Family History Family History Father Family history of coronary artery disease Lung cancer Liver cancer COPD (chronic obstructive pulmonary disease) Mother Family history of chronic obstructive pulmonary disease Family history of congestive heart failure Social History Social History Smoking status: Never smoker Second hand tobacco smoke exposure: No Alcohol intake: never Substance use: never Substance use type: does not use Lack of Transportation: No Lack of Food: Never True Current Housing: I Do Not Have Housing Concerned About Future Housing: No Difficulty Paying Gas/Electric Bills: No Difficulty Paying for Meds: No Currently Unemployed: No Education: High School Diploma/GED Difficulty w/ Childcare or Family Care: No Living arrangements: with family Additional living arrangements comments: LIVES WITH SON ADRIANE Occupation/Education: retired Gender identity (if verbalized by the patient): Female Spiritual care concerns: No Exam Narrative: GENERAL APPEARANCE: WELL-DEVELOPED, WELL-NOURISHED SKIN: NORMAL COLOR HEAD: NORMOCEPHALIC, NONTRAUMATIC EYES: CLEAR CONJUNCTIVA ENT: OROPHARYNGEAL ERYTHEMA NECK: SUPPLE, NONTENDER CHEST AND RESPIRATORY: AIRWAY PATENT, NO RESPIRATORY DISTRESS, NO ACCESSORY MUSCLE USE HEART: REGULAR RATE/RHYTHM ABDOMEN: SOFT, NONTENDER, NO ORGANOMEGALY, QUIET BOWEL SOUNDS VASCULAR: NORMAL MAYURI
== END 2023-07-04 10:27 | disposition home or self-care (01) ==
PROVIDERS: Emergency Provider Emergency Medicine; PCP Emergency Medicine
DX: U07.1 COVID-19 (principal); G20.A1 Parkinson's disease without dyskinesia, without mention of fluctuations; I48.91 Unspecified atrial fibrillation; I10 Essential (primary) hypertension; E11.39 Type 2 diabetes mellitus with other diabetic ophthalmic complication; H42 Glaucoma in diseases classified elsewhere; E11.40 Type 2 diabetes mellitus with diabetic neuropathy, unspecified; E78.5 Hyperlipidemia, unspecified; E21.3 Hyperparathyroidism, unspecified; E55.9 Vitamin D deficiency, unspecified; E89.0 Postprocedural hypothyroidism; D50.9 Iron deficiency anemia, unspecified; G47.33 Obstructive sleep apnea (adult) (pediatric); J32.9 Chronic sinusitis, unspecified; Z86.010 Personal history of colon polyps; Z87.442 Personal history of urinary calculi; Z98.84 Bariatric surgery status; Z79.82 Long term (current) use of aspirin; Z79.84 Long term (current) use of oral hypoglycemic drugs
CPT/HCPCS: 87637; 87651; 99283

== ENCOUNTER 2023-10-20 07:39 | Outpatient (CLI) | payer OTHER, SELFPAY ==
--- NOTE | ~2023-10-20 | MM_ITS ---
EXAMINATION: MM screening susie BI w jr HISTORY: Screening mammogram TECHNIQUE: Craniocaudal and mediolateral oblique 3-D tomosynthesis images were obtained and synthetic 2-D images were generated. CAD analysis was submitted and interpreted. COMPARISON: September 03, 2022, July 01, 2021 bilateral screening mammogram examinations BREAST PARENCHYMAL COMPOSITION: There are scattered areas of fibroglandular density. FINDINGS: There is no evidence of suspicious mass, calcification, or architectural distortion to sugg est malignancy in either breast. There has been no suspicious interval change. IMPRESSION: 1. No mammographic evidence of malignancy. 2. Recommend routine screening mammography in one year. BI-RADS Category 1: Negative Reviewed, dictated and finalized at location A.
== END 2023-10-20 07:40 | disposition home or self-care (01) ==
LOC: ANHIMG 07:45
PROVIDERS: PCP Emergency Medicine; Visit Provider Nurse Practitioner
DX: Z12.31 Encounter for screening mammogram for malignant neoplasm of breast (principal)
CPT/HCPCS: 77063; 77067

== ENCOUNTER 2023-12-01 10:02 | Outpatient (CLI) | payer OTHER, SELFPAY ==
--- NOTE | ~2023-12-01 | DEXA_ITS ---
Bone Density Report Name: ANGELLA HIGGINS Age: 68 Sex: Female Ethnicity: White Date of : 1955 Indication: postmenopausal; screening for osteoporosis; history of glucocorticoids; Referring Provider: LINNETTE LI Study: Bone densitometry was performed. Exam Date: December 01, 2023 Accession number: [id number] Bone Density: Region BMD T-score Z-score Classification AP Spine(L1-L4) 1.076 0.3 2.3 Normal Femoral Neck (Left) 0.634 -1.9 -0.2 Osteopenia Total Hip (Left) 0.760 -1.5 -0.1 Osteopenia Femoral Neck (Right) 0.713 -1.2 0.5 Osteopenia Total Hip (Right) 0.835 -0.9 0.5 Normal Total Hip Mean 0.798 -1.2 0.2 Osteopenia World Health Organization criteria for BMD impression classify patients as: Normal (T-score at or above -1.0), Osteopenia (T-score between -1.0 and -2.5), or Osteoporosis (T-score at or below -2.5). 10-year Fracture Risk(1): Major Osteoporotic Fracture 15% Hip Fracture 2.6% Reported Risk Factors: [place] (), Neck BMD=0.634, BMI=45.4, glucocorticoids (1) FRAX(R) Version 3.08. Fracture probability calculated for an untreated patient. Fracture probability may be lower if the patient has received treatment. Clinical Information Provided by Patient: Has taken Glucocorticoids Has used the following medications: Vitamin D Patient maximum height was 64 Menopause Age: 55 No regular weight bearing exercise Does not regularly consume dairy products Drinks caffeinated beverages Onset of menses at age 11 Number of children 2 Impression: The patient has low bone mass, based on the Left Femoral Neck T-score. The patient has an estimated ten-year risk of hip fracture of 2.6% and an estimated ten-year risk of major fracture of 15%, based on the WHO FRAX algorithm. The patient has risk factors, including: history of glucocorticoid therapy. Discussion: BONE DENSITY IS LOW AT ONE OR MORE SKELETAL SITES. This patient's lowest T-score is low at one or more skeletal sites. It meets the World Health Organization's (WHO) criteria for ?low bone mass? (T-score between -1.0 and -2.5). The patient's 10-year risk of fracture as calculated by FRAX is less than the threshold where pharmacological therapy is recommended by the National Osteoporosis Foundation (NOF). However, all treatment decisions require clinical judgment and consideration of individual patient factors, including patient preferences, comorbidities, previous drug use, risk factors not captured in the FRAX model (e.g., frailty, falls, vitamin D deficiency, increased bone turnover, interval significant decline in bone density) and possible under or overestimation of fracture risk by FRAX. The patient should follow a healthful lifestyle (good nutrition with adequate calcium and vitamin D, and appropriate weight-bear
== END 2023-12-01 10:03 | disposition home or self-care (01) ==
LOC: ANHIMG 10:05
PROVIDERS: PCP Emergency Medicine; Visit Provider Obstetrics & Gynecology Gynecology
DX: Z78.0 Asymptomatic menopausal state (principal); M85.89 Other specified disorders of bone density and structure, multiple sites
CPT/HCPCS: 77080

== ENCOUNTER 2024-04-13 08:25 | Outpatient (CLI) | payer OTHER, SELFPAY ==
--- NOTE | ~2024-04-13 | NM_ITS ---
EXAMINATION: NM mari stress w perfusion DATE: 04/13/2024 11:01 INDICATION: Other forms of dyspnea TECHNIQUE: Rest images were obtained following intravenous administration of 10.0 mCi Tc99m tetrofosm in (Myoview). The patient was infused intravenously with Lexiscan (Regadenoson). Then, 31.7 mCi Tc99m tetrofosmin (Myoview) was administered intravenously, and stress images were obtained. Post stress i mages were obtained initially in the supine position with repeat images obtained in the prone positio n. Data was reconstructed into short axis and horizontal and vertical long axis SPECT images. Gated S PECT images were also obtained. COMPARISON: None. FINDINGS: There is moderate severity fixed perfusion defect involving the apical inferior and mid inf erior segments. Perfusion defect at the basilar inferior segment on the supine imaging significant im proves on the prone imaging, equivocal for mild infarct. No reversible ischemia. There is normal left ventricular chamber size, wall motion and ejection fraction. Left ventricular ejection fraction jose francisco sures >70%. IMPRESSION: 1. Fixed perfusion defect consistent with infarct moderate severity at the apical inferior and mid in ferior segments with equivocal mild infarct extending into the basilar inferior segment. No reversibl e ischemia. 2. Left ventricular ejection fraction measuring >70%. Reviewed, dictated and finalized at location B. IMPRESSION: 1. Fixed perfusion defect consistent with infarct moderate severity at the apic al inferior and mid inferior segments with equivocal mild infarct extending int o the basilar inferior segment. No reversible ischemia. 2. Left ventricular ejection fraction measuring >70%.
--- NOTE | 2024-04-13 08:35 | EST_ITS ---
Patient Info Name: Danita Atkins Age: 68 years : 1955 Gender: Female Ht: 64 in Wt: 267 lbs BSA: 2.41 m2 HR: 74 bpm BP: 166 / 51 mmHg Heart Rhythm: Sinus Rhythm Exam Date: 04/13/2024 9:41 AM Exam Location: Echo Lab Patient Status: Outpatient Admit Date: 04/13/2024 Staff Ordering Physician: Kiran Ly MD Attending Provider: Kiran Ly MD Exercise Technologist: Blanka Grossman CT Exercise Physician: Juan Sarmiento DO Exam Type: CA stress mari w NM Study Info A regadenoson stress test was performed. Summary 1. 1. Negative Lexiscan stress test for ischemic ST changes by ECG criteria. 2. 2. Baseline hypertension. 3. 3. Nuclear scan to follow and will be reported separately. Please correlate with it. 4. 4. Patient informed of the above results. Protocol: Lexiscan Stress ECG Details Stage: REST Duration (min): 1 min : 14 sec HR (bpm): 73 SBP (mmHg): 166 DBP (mmHg): 51 Stage: REST Duration (min): 19 min : 59 sec HR (bpm): 72 SBP (mmHg): 166 DBP (mmHg): 51 Stage: STAGE 1 Duration (min): 1 min : 0 sec HR (bpm): 95 SBP (mmHg): 166 DBP (mmHg): 51 Stage: RECOVERY Duration (min): 1 min : 0 sec HR (bpm): 95 SBP (mmHg): 120 DBP (mmHg): 53 Stage: RECOVERY Duration (min): 2 min : 0 sec HR (bpm): 91 SBP (mmHg): 120 DBP (mmHg): 53 Stage: RECOVERY Duration (min): 3 min : 0 sec HR (bpm): 87 SBP (mmHg): 110 DBP (mmHg): 54 Stage: RECOVERY Duration (min): 3 min : 50 sec HR (bpm): 87 SBP (mmHg): 110 DBP (mmHg): 54 Rest HR: 72 bpm Peak HR: 95 bpm Rest Sys BP: 166 mmHg Peak Sys BP: 120 mmHg Max Pred HR: 152 bpm % Max Pred HR: 63 % Target HR: 129 bpm Max RPP: 11,400 bpm*mmHg Termination Reason: Completed protocol Cardiac Symptoms: Shortness of breath Total Time: 1 min : 0 sec Rest [place] BP: 51 mmHg Peak [place] BP: 53 mmHg Total Dose: 0.4 mg Resting ECG Sinus rhythm, RBBB. Stress ECG No ST changes. Arrhythmias None. Report Signatures
== END 2024-04-13 08:26 | disposition home or self-care (01) ==
PROVIDERS: PCP Emergency Medicine; Visit Provider Emergency Medicine
DX: I11.0 Hypertensive heart disease with heart failure (principal); R94.39 Abnormal result of other cardiovascular function study; R06.09 Other forms of dyspnea
CPT/HCPCS: 78452; 93017; A9502; J2785

== ENCOUNTER 2024-06-06 07:17 | Outpatient (CLI) | payer OTHER, SELFPAY ==
--- NOTE | 2024-06-06 07:50 | ECHO_ITS ---
Patient Info Name: Danita Atkins Age: 68 years : 1955 Gender: Female Ht: 64 in Wt: 265 lbs BSA: 2.40 m2 HR: 68 bpm BP: 122 / 71 mmHg Technical Quality: Good Exam Date: 06/06/2024 8:22 AM Exam Location: Echo Lab Patient Status: Outpatient Admit Date: 06/06/2024 Staff Ordering Physician: Juan Sarmiento DO Rehabilitation Liaison: Martina Delgadillo RDCS Attending Provider: Juan Sarmiento DO Referring Physician: Torsten ARNETT; Exam Type: CA echo doppler color flow Study Info Indications R06.09 - Other forms of dyspnea Complete two-dimensional, color flow and Doppler transthoracic echocardiogram is performed. Strain analysis performed. Summary 1. Complete two-dimensional, color flow and Doppler transthoracic echocardiogram is performed. 2. Left ventricular chamber dimension is normal. 3. Left ventricular systolic function is normal, estimated at 65-70%. 4. There is mild concentric increased left ventricular wall thickness. 5. The left ventricular diastolic function is grade I diastolic dysfunction. 6. E/e' 10 is mildly elevated. 7. Global longitudinal strain is normal at -21.9%. 8. Left atrial chamber dimension is mildly enlarged. 9. There is mild aortic valve regurgitation. 10. There is trace mitral valve regurgitation. 11. No pulmonary hypertension, estimated pulmonary arterial systolic pressure is 30 mmHg. 12. There is trace pulmonic regurgitation. Left Ventricle E/e' 10 is mildly elevated. Global longitudinal strain is normal at -21.9%. Left ventricular chamber dimension is normal. Left ventricular systolic function is normal, estimated at 65-70%. There is mild concentric increased left ventricular wall thickness. The left ventricular diastolic function is grade I diastolic dysfunction. Right Ventricle Right ventricular systolic function is normal and with normal TAPSE 2.7 cm. Right ventricular chamber dimension is normal. Left Atria Left atrial chamber dimension is mildly enlarged. Right Atria Right atrial chamber dimension is normal. Aortic Valve The aortic valve is trileaflet. There is no aortic valve stenosis. There is mild aortic valve regurgitation. Pulmonic Valve There is trace pulmonic regurgitation. Mitral Valve There is no mitral valve stenosis. There is trace mitral valve regurgitation. Tricuspid Valve There is no tricuspid valve regurgitation. No pulmonary hypertension, estimated pulmonary arterial systolic pressure is 30 mmHg. Pericardium/Pleural There is no pericardial effusion. Inferior Vena Cava Normal inferior vena cava with >50% collapse upon inspiration consistent with normal right atrial pressure, 5 mmHg. Aorta The aortic root size at the sinus of Valsalva is normal. Left Ventricular Outflow Tract Name Value Normal LVOT 2D LVOT Diameter 2.0 cm LVOT Doppler LVOT Peak Gradient 4 mmHg LVOT Mean Gradient 3 mmHg LVOT VTI 25 cm LVOT VTI/AV VTI Ratio 0.6 LVOT Stroke Volume 83 ml LVOT CO 5.3 l/min LVOT CI 2.2 l/min/m2 Pulmonic Valve Name Value Normal RVOT Doppler RVOT Peak Gradient 3 mmHg PV Doppler PV Peak Gradient 4 mmHg Mitral Valve Name Value Normal MV Doppler MV Decel [place] 457 cm/s2 MV PHT 50 ms MV Area (PHT) 4.4 cm2 4.0-5.0 MV Diastolic Function MV E Peak Velocity 78 cm/s MV A Peak Velocity 121 cm/s MV E/A 0.6 MV Decel Time 171 ms Tricuspid Valve Name Value Normal TV Regurgitation Doppler TR Peak Velocity 248 cm/s TR Peak Gradient 25 mmHg Estimated PAP/RSVP RA Pressure 5 mmHg <=5 PA Systolic Pressure 30 mmHg <36 RV Systolic Pressure 30 mmHg <36 Aorta Name Value Normal Ascending Aorta Ao Root Diameter (MM) 2.8 cm Ao Root Diam Index (MM) 1.2 cm/m2 Aortic Valve Name Value Normal AV Doppler AV Peak Velocity 160 cm/s AV Peak Gradient 10 mmHg AV Mean Gradient 6 mmHg AV VTI 39 cm AV Area (Cont Eq VTI) 2.1 cm2 >=3.0 AV Area (Cont Eq David) 2.2 cm2 AV Regurgitation 2D LVOT Area 3.3 cm2 AV Regurgitation Doppler AR Decel Time 1,916 ms AR Decel [place] 194 cm/s2 AR PHT 556 ms Ventricles Name Value Normal LV Dimensions 2D/MM IVS Diastolic Thickness (2D) 1.0 cm 0.6-1.0 IVS Diastole Thickness (MM) 1.4 cm 0.6-0.9 LVID Diastole (2D) 5.2 cm 3.8-5.2 LVID Diastole (MM) 5.6 cm 3.8-5.2 LVIW Diastolic Thickness (2D) 1.1 cm 0.6-0.9 LVIW Diastolic Thickness (MM) 1.1 cm 0.6-0.9 LVID Systole (2D) 3.2 cm 2.2-3.5 LVID Systole (MM) 2.9 cm 2.2-3.5 LVOT Diameter 2.0 cm LV Mass (2D Cubed) 201.33 g 67.00-162.00 LV Mass Index (2D Cubed) 84 g/m2 43-95 Relative Wall Thickness (2D) 0.42 LV Mass (MM Cubed) 299.91 g 67.00-162.00 LV Mass Index (MM Cubed) 125 g/m2 43-95 Relative Wall Thickness (MM) 0.39 LV Fractional Shortening/Ejection Fraction 2D/MM LV Fractional Shortening (2D) 39 % 27-45 LV Fractional Shortening (MM) 48 % 27-45 LV EF (MM Teicholz) 79 % 54-74 LV EF (2D Teicholz) 69 % 54-74 LV Diastolic Volume (4C MOD) 100 ml LV EF (4C MOD) 62 % LV Diastolic Volume (2C MOD) 101 ml LV EF (2C MOD) 59 % LV Diastolic Volume (BP MOD) 101 ml 46-106 LV Diastolic Volume Index (BP MOD) 42 ml/m2 29-61 LV Systolic Volume (BP MOD) 40 ml 14-42 LV Systolic Volume Index (BP MOD) 17 ml/m2 8-24 LV EF (BP MOD) 60 % 54-74 LV Diastolic Length (4C) 7.9 cm LV Systolic Length (4C) 7.0 cm LV Stroke Volume (4C MOD) 61 ml Atria Name Value Normal LA Dimensions LA Dimension (MM) 3.9 cm 2.7-3.8 LA Volume (4C A-L) 86 ml LA Volume (BP A-L) 88 ml RA Dimensions RA Area (4C) 19.2 cm2 <=18.0 EchoPAC Name Value Normal AutoEF LVCO_BiP_Q (Hate9NWY) 4.9 l/min LVEF_BiP_Q (Nros5HVU) 64 % LVSV_BiP_Q (Tlbt6IBE) 74 ml LVVED_BiP_Q (Votw2JEC) 116 ml LVVES_BiP_Q (Nmry5QWW) 42 ml HR_4Ch_Q (Orpa2EEV) 65 bpm LVCO_4Ch_Q (Eear8LYD) 6.1 l/min LVEF_4Ch_Q (Irll5NWX) 64 % LVLd_4Ch_Q (Mmdo0YEK) 8.1 cm LVLs_4Ch_Q (Opos7OEI) 6.4 cm LVSV_4Ch_Q (Fgcv8SNV) 93 ml LVVED_4Ch_Q (Xxga9YIA) 145 ml LVVES_4Ch_Q (Pfee4UYV) 53 ml HR_2Ch_Q (Dsvq5UYW) 62 bpm LVCO_2Ch_Q (Ggge6QIH) 3.7 l/min LVEF_2Ch_Q (Alhe9BIB) 64 % LVLd_2Ch_Q (Ysam9VMC) 8.2 cm LVLs_2Ch_Q (Urcu1MXA) 6.5 cm LVSV_2Ch_Q (Ndrr4GRF) 60 ml LVVED_2Ch_Q (Eqyf2PAD) 93 ml LVVES_2Ch_Q (Tart3SGO) 33 ml ROBERTO AA peak sys SL (AWMA) 21.6 % AAS peak sys SL (AWMA) 27.2 % AI peak sys SL (AWMA) 27.0 % AL peak sys SL (AWMA) 24.0 % AP peak sys SL (AWMA) 23.9 % peak sys SL (AWMA) 33.9 % AVC (AWMA) 432 ms BA peak sys SL (AWMA) 21.8 % BAS peak sys SL (AWMA) 20.6 % BI peak sys SL (AWMA) 21.2 % BL peak sys SL (AWMA) 22.3 % BP peak sys SL (AWMA) 21.6 % BS peak sys SL (AWMA) 19.8 % G peak SL(A2C) (AWMA) 21.1 % G peak SL(A4C) (AWMA) 23.7 % G peak SL(APLAX) (AWMA) 21.1 % G peak SL(Avg) (AWMA) 22.0 % MA peak sys SL (AWMA) 16.0 % MAS peak sys SL (AWMA) 19.2 % PR peak sys SL (AWMA) 27.4 % ML peak sys SL (AWMA) 21.0 % MP peak sys SL (AWMA) 17.5 % MS peak sys SL (AWMA) 23.9 % Report Signatures
== END 2024-06-06 07:18 | disposition home or self-care (01) ==
PROVIDERS: PCP Emergency Medicine; Visit Provider Internal Medicine Cardiovascular Disease
DX: I08.0 Rheumatic disorders of both mitral and aortic valves (principal); R06.09 Other forms of dyspnea
CPT/HCPCS: 93306

== ENCOUNTER 2024-07-20 13:30 | Outpatient (RCR) | payer OTHER, SELFPAY ==
--- NOTE | 2024-06-08 14:27 | OPREHPOC ---
Outpatient Therapy Plan of Care This is a Multidisciplinary Plan of Care that may contain components documented by all disciplines (PT, OT, and ST.) PT Problem 1 PT Problem #1 Knowledge Deficit PT Goal 1 Goal / Goal Update Bandera with HEP Target Visit 4 PT Problem 2 PT Problem #2 Impaired Functional Mobil PT Goal 1 Goal / Goal Update Patient will improve Tinetti score by 5 points to reduce fall risk and improve gross mobility Target Visit 8 PT Goal 2 Goal / Goal Update Patient will demonstrate ability to maintain balance on foam surface for 30 seconds to improve vestibular control Target Visit 8 PT Problem 3 PT Problem #3 Impaired Strength PT Goal 1 Goal / Goal Update Improve tylor hip flexion to 4+/5 to improve foot clearance Target Visit 8 PT Goal 2 Goal / Goal Update Improve tylor hip abduction to 4/5 to improve lateral hip stability and gait cycle to reduce trunk lean PT Goal 1 Goal / Goal Update Demonstrate ability to maintain moderate resistance cardiovascular activity for 10 minutes for improved safety with home conditioning Target Visit 8
--- NOTE | 2024-06-08 14:27 | PTOPEVAL1 ---
Assessment and note entered by Del Zavala, PT Evaluation Information Assessment Status Evaluation ICD-10 Condition Codes (PT) Repeated falls R29.6,Weakness R53.1 Onset 10+ years Subjective Information Reports that she has been having her heart checked due to shortness of breath. She feels that she has been getting short of breath and unsteady with frequent falls. Her last fall was approximately a couple months ago. She always feels really weak and is getting weaker. Has history of arthroscopic surgery on left knee and it still inhibits her. She has been having a lot of weakness and luna in left knee. Was told she needed a knee replacement but needed to lose weight first. Knee pain is affecting her life. Pain in the knee comes and goes but really bothers her when it is bad. Feels that she is getting cramps in her legs occasionally as well. Reports that she used to have vertigo but has not had it for a long time. Reported Pain Level Pain Score 2: Self Report Assessment PT Clinical Summary Patient presents with balance deficits indicated by strength loss in hips, Tinetti fall score indicator, and fall history. Patient shows signs of deconditioning and weakness and will benefit from skilled therapy to address these deficits through strengthening and conditioning exercise program. Plan of Care Interventions Gait Training,Hot Pack/Cold Pack,Manual Therapy, Neuro Re-education,Therapeutic Activities, Therapeutic Exercise PT Services Indicated Yes Treatment Frequency and 2x/week for 8 visits Duration These treatments will address the objective and functional deficits as defined above. The patient will be advanced safely and appropriately in order for the patient to progress towards his/her prior level of function. Additional exercises will be introduced and as well as a comprehensive home exercise program upon discharge, if needed, ?to ensure carryover of functional gains achieved in the clinic. This treatment plan has been reviewed and agreement upon by the patient.
--- NOTE | 2024-06-23 09:14 | PCPTNOTE ---
Patient called and cancelled appointment today due to being sick.
--- NOTE | 2024-07-20 14:27 | PTOPDC ---
Assessment and note entered by Lin Garcia, PT Assessment Status Discharge ICD-10 Condition Codes (PT) Repeated falls R29.6,Weakness R53.1 Onset 10+ years Subjective Information have some good exercises to do at home, have been trying to get up and move around more; is doing everything at home, but is wobbly; have not had any falls; on stairs sometimes do one step at a time and sometimes can alternate steps; want to be finished with therapy and do the exercises on her own, to avoid having the copayment from her insurance. Reported Pain Level Pain Score 0: Self Report Additional Pain Score Comments no pain in L knee at this time, in the past week was 0-2/10; sometimes hurts with sleeping and move wrong, twist it; also have pain in R ankle and both hips at times Assessment PT Clinical Summary December has received 7 PT sessions. Compared to the initial evaluation: less pain reported in L knee; Tinetti balance score from 18 to 24/28= low risk for falls; 2 minute walking test distance from 320' to 350'; has not had any falls since starting therapy; increase strength of R and L LE's; continues to have some R/L lateral motion of trunk with walking; education for HEP and gait pattern completed. The goals were partially met. Discharge PT, she is to continue with her HEP. Plan of Care PT Services Indicated No
== END 2024-07-20 15:30 | disposition home or self-care (01) ==
LOC: ANHPT 13:30
PROVIDERS: PCP Emergency Medicine; Visit Provider Emergency Medicine
DX: R53.1 Weakness (principal); R29.6 Repeated falls
CPT/HCPCS: 97110; 97112; 97161; 97530

== ENCOUNTER 2024-08-31 09:10 | Emergency (ER) | payer OTHER, SELFPAY ==
--- NOTE | 2024-08-31 09:25 | ED.URI ---
HPI - URI/Sore Throat General Chief Complaint: Upper Respiratory Infection Stated Complaint: Sore Throat Time Seen by Provider: 08/31/24 09:12 Source: patient Mode of arrival: ambulatory Limitations: no limitations History of Present Illness HPI Narrative: Danita is a 69-year-old female patient presenting to the clinic today with complaints of a cough, nasal congestion, sore throat, fatigue, weakness and headache times 3-4 days. She reports sore throat started on Wednesday. She denies any chest pain or shortness of breath. MD elicited complaint: sore throat and nasal congestion Related Data Home Medications ?Medication ?Instructions ?Recorded ?Confirmed ?Last Taken ?Type lansoprazole 15 mg capsule,delayed 15 mg PO DAILY 09/11/19 08/22/24 02/24/23 09:00 History release latanoprost 0.005 % eye drops 1 drop ophthalmic (eye) QPM 09/11/19 08/22/24 02/24/23 22:00 History aspirin 81 mg capsule 81 mg PO DAILY 02/16/23 08/22/24 02/24/23 09:00 History levothyroxine 137 mcg tablet 137 mcg PO DAILY 10/11/23 08/22/24 Unknown History gabapentin 600 mg tablet See Rx Instructions .Route .COMPLEX 07/03/24 08/22/24 Unknown History Allergies Allergy/AdvReac Type Severity Reaction Status Date / Time bupropion (From Wellbutrin) AdvReac Severe Hallucinati Verified 08/31/24 09:30 ng morphine AdvReac Mild Nausea and Verified 08/31/24 09:30 Vomiting Review of Systems Review of Systems: Pertinent positives per HPI. Patient denies any fever, chills, rash, visual changes, dizziness, shortness of breath, chest pain, palpitations, nausea, vomiting, diarrhea, constipation, abdominal pain, or any urinary issues. [facility] Past Medical History Medical History Sinus congestion COVID-19 ISAIAH on CPAP Atrial fibrillation Shoulder pain Anemia BMI 45.0-49.9, adult Benign familial tremor Blood glucose elevated Chronic sinusitis Multiple fractures of ribs, right side, initial encounter for closed fracture History of colon polyps History of kidney stones Hyperparathyroidism Injury of digital nerve of right index finger, initial encounter Iron deficiency anemia Kidney stones Parathyroid adenoma Parkinson disease Thyroid nodule Vitamin D deficiency Glaucoma FH: cholecystectomy (~1999) Neuropathy Depression Hypothyroidism (acquired) HLD (hyperlipidemia) HTN (hypertension) Diabetes mellitus Surgical History Surgical History H/O thyroidectomy Hx of cardiac cath (~2010) S/P foot surgery, left H/O gastric bypass (~2006) H/O section (~1983) H/O section (~1978) Family History Family History Father Family history of coronary artery disease Lung cancer Liver cancer COPD (chronic obstructive pulmonary disease) Mother Family history of chronic obstructive pulmonary disease Family history of congestive heart failure Social History Social History Smoking status: Never smoker Second hand tobacco smoke exposure: No Alcohol intake: never Substance use: never Substance use type: does not use Current Housing: Decline to Answer Concerned About Future Housing: Decline to Answer Difficulty Paying Gas/Electric Bills: Decline to Answer Difficulty Paying for Meds: Decline to Answer Currently Unemployed: Decline to Answer Education: Decline to Answer Difficulty w/ Childcare or Family Care: Decline to Answer Living arrangements: with family Additional living arrangements comments: LIVES WITH SON ADRIANE Occupation/Education: retired Gender identity (if verbalized by the patient): Female Spiritual care concerns: No Comments At the time of my signature, I reviewed and agree with the nursing past medical, surgical, social, and family history. There is no relevant family history pertinent to the patient complaint. Exam Narrative: General: Well-developed, morbidly obese, in no apparent distress Head: Normocephalic, atraumatic Eyes: Pupils equally round and reactive to light bilaterally, EOM intact, sclera and conjunctive clear, no discharge, lids normal Ears: TMs intact and congested, ear canals clear, no drainage, grossly hearing normal. Nose: Nares patent, clear nasal discharge, no inflammation, no sinus tenderness. Mouth: Oral pharynx red without lesions or masses, good dentition, MMM. Postnasal drip Neck: Supple, trachea midline, no enlargement of anterior or posterior cervical nodes, no thyroid masses or goiter palpable. Cardio: Regular rate and rhythm, s1 and s2 normal, no murmur appreciated. Resp: Clear to auscultation bilaterally, no rhonchi, rales, wheezing or rubs Course Course Emergency Course: Portions of this record may have been created with voice recognition software. Level of Care: Express Care Visit Vital Signs Vital signs: Vital Signs Temperature 37.1 C 08/31/24 09:35 Pulse Rate 93 08/31/24 09:35 Respiratory Rate 15 08/31/24 09:35 Blood Pressure 125/55 L 08/31/24 09:35 Pulse Oximetry 98 08/31/24 09:35 Oxygen Delivery Room Air 08/31/24 09:35 Temperature 37.1 C 08/31/24 09:35 Pulse Rate 93 08/31/24 09:35 Respiratory Rate 15 08/31/24 09:35 Blood Pressure 125/55 L 08/31/24 09:35 Pulse Oximetry 98 08/31/24 09:35 Oxygen Delivery Room Air 08/31/24 09:35 Vital signs reviewed MDM - URI/Sore Throat MDM Narrative Medical decision making narrative: At the time of visit patient is resting comfortably on the exam table. Patient appears to be nontoxic. Labs: COVID testing was positive in the clinic today. Plan: Patient has COVID-19. She denies any shortness of breath or chest pain. Discussed calling her doctor to see if they would order her Paxlovid as we cannot check her kidney function. Will send in prescription for Tessalon Perles for nighttime for cough and encouraged her use Mucinex during the daytime. Supportive measures were discussed with the patient and they voiced understanding discharge instructions and agrees to treatment plan. Return precautions reviewed Differential Diagnosis Differential diagnosis: Likely upper respiratory infection, otitis media, sinusitis, viral infection, bronchitis, influenza, pharyngitis and other (COVID) Discharge Plan Discharge Clinical Impression: COVID-19 Patient Disposition: Home, Self-Care Condition: Stable Instructions: Antibiotic Form, How to Recover from COVID-19 at Home (ED) Additional Instructions: COVID testing was positive in the clinic today. May contact your primary care doctor to discuss them prescribing you Paxlovid Take prescription medications only as prescribed-Tessalon Perles Take Mucinex during the daytime and may take Tessalon Perles at night for cough Increase fluids and stay well hydrated Tylenol/motrin for pain/fever Flonase and OTC antihistamines as directed Vicks vapor rub to open sinuses Sinus rinses for congestion Cepacol spray, cough drops, throat lozenges, warm tea with honey/lemon, gargle salt water to soothe throat BRAT diet for diarrhea Clear liquids x 24 hours then advance as tolerated for nausea/vomiting Go to the ED if you develop a worsening in your condition- high fever not controlled by Tylenol or Motrin, dehydration, weakness, lethargy, shortness of breath, or chest pain. Follow up with your PCP in 3-5 days if symptoms persist. Patient Language: Polish Prescriptions: New benzonatate 200 mg capsule 200 mg PO TID 7 Days Qty: 21 0RF No Action latanoprost 0.005 % drops 1 drop EACH EYE QPM lansoprazole 15 mg capsule,delayed release(DR/EC) 15 mg PO DAILY Patient Comments: 1230 levothyroxine 137 mcg tablet 137 mcg PO DAILY gabapentin 600 mg tablet See Rx Instructions .ROUTE .COMPLEX Dose Instruction: TAKE 1 TABLET BY MOUTH THREE TIMES DAILY Rx Instructions: TAKE 1 TABLET BY MOUTH 2 TIMES DAILY aspirin 81 mg Capsule 81 mg PO DAILY (DME) blood sugar diagnostic Strip See Rx Instructions .Route Qty: 100 0RF Rx Instructions: Use 1 strip to check glucose once daily (DME) blood-glucose meter [FreeStyle Lite Meter] Kit See Rx Instructions .Route Qty: 1 0RF Rx Instructions: As directed to check blood sugar daily venlafaxine 150 mg capsule,extended release 24hr See Rx Instructions .ROUTE .COMPLEX Qty: 90 2RF Dose Instruction: Take 1 capsule by mouth once daily Rx Instructions: Take 1 capsule by mouth once daily ergocalciferol (vitamin D2) 1,250 mcg (50,000 unit) capsule See Rx Instructions .ROUTE .COMPLEX Qty: 12 2RF Dose Instruction: Take 1 capsule by mouth once a week Rx Instructions: Take 1 capsule by mouth once a week gabapentin 300 mg capsule 300 mg PO .COMPLEX Qty: 90 2RF Rx Instructions: Take 300 mg orally HS along with the 600mg HS Ozempic 0.25 mg or 0.5 mg (2 mg/3 mL) pen injector 0.25 mg subcut WEEKLY Qty: 3 0RF Rx Instructions: for 4 weeks ezetimibe 10 mg tablet See Rx Instructions .ROUTE .COMPLEX Qty: 90 2RF Dose Instruction: Take 1 tablet by mouth once daily Rx Instructions: Take 1 tablet by mouth once daily alendronate 70 mg tablet See Rx Instructions .ROUTE .COMPLEX Qty: 12 2RF Dose Instruction: Take 1 tablet by mouth once a week Rx Instructions: Take 1 tablet by mouth once a week metformin 500 mg tablet extended release 24 hr See Rx Instructions .ROUTE .COMPLEX Qty: 180 2RF Dose Instruction: Take 1 tablet by mouth twice daily Rx Instructions: Take 1 tablet by mouth twice daily metoprolol succinate 50 mg tablet extended release 24 hr See Rx Instructions .ROUTE .COMPLEX Qty: 90 2RF Dose Instruction: Take 1 tablet by mouth once daily Rx Instructions: Take 1 tablet by mouth once daily candesartan 32 mg tablet See Rx Instructions .ROUTE .COMPLEX Qty: 90 2RF Dose Instruction: Take 1 tablet by mouth once daily Rx Instructions: Take 1 tablet by mouth once daily Follow-up/Referrals: Kiran Ly MD [Primary Care Provider] - Time of Disposition: 09:43 Quality NIHSS Nursing Documentation ED NIHSS nursing documentation: reviewed/agree
[2024-08-31 09:35] VITALS: BP 125/55; PULSE 93; RESP 15; TEMP 37.1; O2SAT 98
[2024-08-31 09:59] LABS: EDCOVIDSCREEN Positive (Negative)
== END 2024-08-31 09:55 | disposition home or self-care (01) ==
PROVIDERS: Emergency Provider Nurse Practitioner Family; PCP Emergency Medicine
DX: U07.1 COVID-19 (principal); I48.91 Unspecified atrial fibrillation; E21.3 Hyperparathyroidism, unspecified; G20.A1 Parkinson's disease without dyskinesia, without mention of fluctuations; E03.9 Hypothyroidism, unspecified; I10 Essential (primary) hypertension; E78.5 Hyperlipidemia, unspecified; E11.40 Type 2 diabetes mellitus with diabetic neuropathy, unspecified; E11.39 Type 2 diabetes mellitus with other diabetic ophthalmic complication; H42 Glaucoma in diseases classified elsewhere; Z79.84 Long term (current) use of oral hypoglycemic drugs; Z79.85 Long-term (current) use of injectable non-insulin antidiabetic drugs; E55.9 Vitamin D deficiency, unspecified; Z79.82 Long term (current) use of aspirin
CPT/HCPCS: 87426; 99213; G0463

== ENCOUNTER 2024-10-25 10:28 | Outpatient (CLI) | payer OTHER, SELFPAY ==
[2024-10-25 11:03] LABS: Hematocrit 31.3 % (37.0-47.0); Hemoglobin 8.8 g/dL (12.0-15.0); Mean Corpuscular HGB Conc 28.1 g/dl (32-36); Mean Corpuscular Hemoglobin 22.6 pg (26-34); Mean Corpuscular Volume 80.3 fl (80-100); Mean Platelet Volume 8.9 fl (7.4-10.4); Platelet Count Result 398 k/mm3 (150-375); Red Cell Distribution Width 17.6 % (11.5-14.5); White Blood Count 5.8 K/mm3 (4.5-10.0)
[2024-10-25 11:40] LABS: Iron 39 ug/dL (37-170)
[2024-10-25 11:53] LABS: Percent Iron Saturation 9 % (20-50)
--- OUTSIDE RECORDS SUMMARY | 2024-10-25 11:55 | XMS_ITS | Encounter Summary ---
Author Organization [facility] Address [address] [place] [address] Care Team Providers Care Card Dealer Name Role Phone Kiran Ly MD Primary Care Provider [phone] Reason for Visit * Auth/Cert (Routine) Specialty Diagnoses / Procedures Referred By Contsonny t Referred To Contact Perioperative Diagnoses Primary hyperparathyroidism Procedures TX PARATHYROIDECTOMY/EXPLOR PARATHYROIDS RE-EXPLOR TX PARATHYROIDECTOMY/EXPLOR PARATHYROIDS RE-EXPLOR TX PARATHYROID AUTOTRANSPLANTATION ADD-ON PARATHYROID RE-EXPLORATION WITH RE-IMPLANTATION Vaibhav Teran MD [address] [address] Phone: tel: fax: [facility] Operating Room [address] [place] [address] Phone: tel: fax: Referral ID Status Reason Start Date Expiration Date Visits Re quested Visits Authorized [id number] 1 1 Encounter Details Date Type Department Care Team (Latest Contact Info) Description 10/23/2024 Hospital Encounter [facility] Operating Room [address] [place] [address] Vaibhav Teran MD [address] [facility] [address] [place] [address] Primary hyperparathyroidism Social History Tobacco Use Types Packs/Day Years Used Date Smoking Tobacco: Never Smokeless Tobacco: Never Alcohol Use Standard Drinks/Week Comments Yes 0 (1 standard drink = 0.6 oz pur e alcohol) rarely Food Insecurity Answer Date Recorded Social/Environmental Concerns No concerns Transportation Needs Answer Date Record ed Social/Environmental Concerns No concerns Housing Stability Answer Date Recorded Social/Environmental Concerns No concerns Utility Needs Answer Date Recorded Social/Environmental Concerns No concerns Comments No Sex and Gender Information Value Date Recorded Sex Assigned at Not on file 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 Will be seeing a GI Dr. Pt has called 's office to notify. documented in this encounter Plan of Treatment Not on file documented as of this encounter Visit Diagnoses Not on filedocumented in this encounter Care Teams Card Dealer Relationship Specialty Start Date End Date Kiran Ly MD [address] [place] [address] PCP - General Internal Medicine 05/13/20 documented as of this encounter
--- OUTSIDE RECORDS SUMMARY | 2024-10-25 11:55 | XMS_ITS | Clinical Summary ---
Author Organization [facility] Address [address] [place] [address] Care Team Providers Care Retail Administrative Assistant Name Role Phone Kiran Ly MD Primary Care Provider [phone] Source Comments [facility],non-owned Affiliates and Associated Physician Practices is amultiple site organization consisting of ambulatory clinics and hospital sitesin [place], [place], [place] and [place]. This disclosure is being madepursuant to the Care Everywhere program and may not contain all information available regarding this patient. Last updated 18.[facility] Social History Tobacco Use Types Packs/Day Years Used Date Smoking Tobacco: Never Assessed Sex and Gender Information Value Date Recorded Sex Assigned at Not on file Gender Identity Not on file Sexual Orientation Not on file Plan of Treatment Health Maintenance Due Date Last Done Comments BONE DENSITY TESTING 1955 COLOGUARD (AGES 45-75) - COL ON CA SCREENING 1955 COLON MONITORING 1955 COLONOSCOPY - COLON CA SCREENING 1955 CT COLONOGRAPHY - COLON CA SCREENING 1955 Colorectal Cancer Screening 1955 FIT - COLON CA SCREENING 1955 FLEX SIG - COLON CA SCREENING 1955 LIPID TESTING 1955 MAMMOGRAM 1955 MEDICARE AWV 12 MONTHS 1955 HEPATITIS C SCREENING 06/10/1973 DTAP/TDAP/TD VACCINES (1 - Tdap) 1974 PNEUMOCOCCAL VACCINE 50+ (1 of 1 - PCV) 2005 ZOSTER VACCINE (1 of 2) 2005 COVID-19 VACCINE (1 - 2023-2 5 season) 2024 INFLUENZA VACCINE (#1) 2024 DEPRESSION SCREENING 07/26/2024 Respiratory Syncytial Virus (RSV) Vaccine Pt: or over 60 yrs (1 - 1-dose 75+ series) 2030 HEPATITIS B VACCINE Aged Out No longe r eligible based on patient's age to complete this topic HIB VACCINE Aged Out No longer eligi ble based on patient's age to complete this topic HPV VACCINE Aged Out No longer eligi ble based on patient's age to complete this topic MENINGOCOCCAL (Group B) VACC INE SHARED DECISION-MAKING Aged Out No longer eligibl e based on patient's age to complete this topic MENINGOCOCCAL GROUPS A/C/Y/W VACCINE Aged Out No longer eligible b ased on patient's age to complete this topic Care Teams Retail Administrative Assistant Relationship Specialty Start Date End Date Kiran Ly MD [address] [place] [address] [address] [place] [address] PCP - General 03/18/22
--- OUTSIDE RECORDS SUMMARY | 2024-10-25 11:55 | XMS_ITS | Encounter Summary ---
Author Organization [facility] Address 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
--- OUTSIDE RECORDS SUMMARY | 2024-10-25 11:55 | XMS_ITS | Clinical Summary ---
Author Organization [facility] Address [address] [place] [address] Care Team Providers Care Web Content Specialist Name Role Phone Kiran Ly MD Primary Care Provider [phone] Social History Tobacco Use Types Packs/Day Years Used Date Smoking Tobacco: Never Assessed Comments Unknown Sex and Gender Information Value Date Recorded Sex Assigned at Not on file Legal Sex Female 5:01 PM CDT Gender Identity Not on file Sexual Orientation Not on file Plan of Treatment Health Maintenance Due Date Last Done Comments Colorectal Cancer Screening Colonoscopy (10 Years) 1955 Hepatitis C 1973 DTaP, Tdap and Td Vaccines ( 1 - Tdap) 1974 Mammogram Screening 1995 Zoster Vaccines (2 of 2) 06/10/2018 04/15/2018 Dexa Scan (General) 2020 Pneumococcal Vaccine: 65+ Years (1 of 1 - PCV) 2020 COVID-19 Vaccine ( - 2023-2 5 season) 2024 Influenza Adult (#1) 2024 04/03/2020, 04/15/2018 RSV Immunization or 60+ Years (1 - 1-dose 75+ series) 2030 Meningococcal B Vaccine Aged Out No l onger eligible based on patient's age to complete this topic Meningococcal Vaccine Aged Out No rohit reno eligible based on patient's age to complete this topic RSV Immunizations Under 20 Months Aged Out No longer eligible b ased on patient's age to complete this topic [place] [address] [place] [address] MEDICARE PART A [facility] Care Teams Web Content Specialist Relationship Specialty Start Date End Date Kiran Ly MD [address] [place] [address] PCP - General INTERNAL MEDICINE 06/01/22
--- OUTSIDE RECORDS SUMMARY | 2024-10-25 11:55 | XMS_ITS | Encounter Summary ---
Author Organization [facility] Address [address] [place] [address] Care Team Providers Care Senior Principal Name Role Phone Kiran Ly MD Primary Care Provider [phone] Reason for Visit * Reason Comments Med Refill Encounter Details Date Type Department Care Team (Late st Contact Info) Description 10/23/2024 Refill [facility]SE [facility] [address] [facility] [address] [place] [address] Vaibhav Teran MD [address] [facility]. [facility] [address] [place] [address] Social History Tobacco Use Types Packs/Day Years [...] on file Legal Sex Female 3:41 AM MAGISTRATE JUDGE Gender Identity Not on file Sexual Orientation Not on file documented as of this encounter Plan of Treatment Not on file documented as of this encounter Visit Diagnoses Not on filedocumented in this encounter Care Teams Senior Principal Relationship Specialty Start Date End Date Kiran Ly MD [address] [place] [id number] PCP - General Internal Medicine 05/13/20 documented as of this encounter
--- OUTSIDE RECORDS SUMMARY | 2024-10-25 11:55 | XMS_ITS | Encounter Summary ---
Author Organization [facility] Address [address] [place] [address] Care Team Providers Care Bookmobile Driver Name Role Phone Kiran Ly MD Primary Care Provider [phone] Encounter Details Date Type Department Care Team (Late st Contact Info) Description 05/12/2001 Outpatient Historical HIS [facility], MAIN [facility] Y[facility], [facility] Social History Tobacco Use Types Packs/Day Years Used Date Smoking Tobacco: Never Assessed Comments Unknown Sex and Gender Information Value Date Recorded Sex Assigned at Not on file Legal Sex Female 3:41 AM LOAN SERVICING SPECIALIST Gender Identity Not on file Sexual Orientation Not on file documented as of this encounter Plan of Treatment Not on file documented as of this encounter Visit Diagnoses Not on filedocumented in this encounter Care Teams Bookmobile Driver Relationship Specialty Start Date End Date Kiran Ly MD [address] [place] [address] PCP - General Internal Medicine 05/13/20 documented as of this encounter
--- OUTSIDE RECORDS SUMMARY | 2024-10-25 11:55 | XMS_ITS | Clinical Summary ---
Author Organization [facility] Address [address] [place] [address] Phone Care Team Providers Care Air Conditioner Installer Helper Name Role Phone Kiran Ly MD Primary Care Provider + [phone] Allergies Active Allergy Reactions Criticality Noted Date Comments Latex Itching Low 10/06/2017 Morphine Nausea and Vomiting Low 10/06/2017 Medications metFORMIN (GLUCOPHAGE) 500 mg tablet Take 500 mg by mouth 2 times daily with meals. Active gabapentin (NEURONTIN) 600 mg tablet Take 600 mg by mouth 3 times daily. Active DULoxetine (CYMBALTA) 60 mg Capsule, Delayed Release(E.C.) Take 90 mg by mouth daily. Active aspirin (MARCO ANTONIO CHEWABLE) 81 mg Tablet, Chewable Take 81 mg by mouth daily. Active cholecalciferol 50,000 unit Capsule Take by mouth. Activ e cholecalciferol , vitamin D3, 1,000 unit Take by mouth. Acti ve ferrous sulfate 325 mg (65 mg iron) tablet Take 325 mg by mouth 2 times daily. Active ergocalciferol (VITAMIN D2) 50,000 unit capsule Take 50,000 Units by mouth. Active metoprolol succinate (TOPROL XL) 25 mg Extended Release 24 hour tablet Take 50 mg by mouth daily. Active candesartan (ATACAND) 32 mg Tablet Take 32 mg by mouth daily. Active esomeprazole (NexIUM) 20 mg Capsule, Delayed Release(E.C.) Take 20 mg by mouth daily before breakfast. Active cefUROXime axetil (CEFTIN) 500 mg tablet Take 500 mg by mouth every 12 hours. Active latanoprost (XALATAN) 0.005 % solution Administer 1 Drop in both eyes daily at bedtime. Active traZODone (DESYREL) 50 mg tablet Take 50 mg by mouth daily at bedtime. Active pravastatin (PRAVACHOL) 40 mg tablet Take 40 mg by mouth late in the day. Active conjugated estrogens (PREMARIN) 0.625 mg/gram vaginal cream Insert vaginally. Active calcium as carbonate (TUMS ULTRA) 1,000 mg (400 mg elemental) Tablet, Chewable Take 1 Tablet (400 mg) by mouth 3 times daily with meals. 90 Tablet 8 Active HYDROcodone-barb taminophen (NORCO) 5-325 mg tablet Take 1 Tablet by mouth every 4 hours as needed for Pain, Moderate. Max Daily Amount: 6 Tablets 30 Tablet 8 Active diltiaZEM (CARDIZEM CD) 180 mg Controlled Delivery 24 hour capsule diltiazem CD 180 mg capsule,extended release 24 hr Active buPROPion HCL (WELLBUTRIN SR) 100 mg Sustained Release 12 hour tablet bupropion HCl SR 100 mg tablet,12 hr sustained-releas e Active ezetimibe (ZETIA) 10 mg tablet TAKE 1 TABLET BY MOUTH ONCE DAILY 0 Active meloxicam (MOBIC) 7.5 mg tablet meloxicam 7.5 mg tablet Active topiramate (TOPAMAX) 50 mg tablet topiramate 50 mg tablet Active levothyroxine 150 mcg tablet TAKE 1 TABLET BY MOUTH ONCE DAILY IN THE MORNING 30 Tablet 5 Active semaglutide (OZEMPIC SUBCUT) Inject by subcutaneous injection every 7 days. Active venlafaxine HCl (VENLAFAXINE ORAL) Take 150 mg by mouth daily. Active lansoprazole (PREVACID ORAL) Take by mouth. Active alendronate sodium (ALENDRONATE ORAL) Take by mouth every 7 days. Active Active Problems No known active problems Encounters Date Type Department Care Team Description 10/23/2024 [facility] E[facility], NOSE AND THROAT WILL [facility] [address] [facility] [address] [place] [address] Maria Esther Teran MD 10/23/2024 Hospital Encounter [facility] Operating Room [address] [place] [address] Maria Esther Teran MD Primary hyperparathyroidism 10/12/2024 9:18 AM CDT - 10/12/2024 11:59 PM CDT Hospital Encounter [facility] S On License Of [facility] [address] [place] [address] Maria Esther Teran MD Discharge Disposition: Home or Self Care 10/03/2024 10:00 AM CDT Office Visit [facility] EAR, NOSE AND THROAT [address] [address] Maria Esther Teran MD Primary hyperparathyroidism (Primary Dx); Postoperative hypothyroidism; Chronic lymphocytic thyroiditis 10/03/2024 Prep for Surgery [facility] EAR, NOSE AND THROAT [address] [address] Kam Justin PA Primary hyperparathyroidism (Primary Dx) 10/03/2024 Chart Note [facility] EAR, NOSE AND THROAT [address] [address] Aubree Parker, [facility] 10/03/2024 Orders Only [facility] EAR, NOSE AND THROAT [address] [address] Aubree Parker, [facility] 09/23/2024 Refill [facility] EAR, NOSE AND THROAT [address] [address] Maria Esther Teran MD 08/26/2024 Refill [facility] EAR, NOSE AND THROAT [address] [address] Maria Esther Teran MD 07/28/2024 Refill [facility] EAR, NOSE AND THROAT [facility] [address] [address] Maria Esther Teran MD from Last 3 Months Immunizations Immunization Administration Dates Next Due (SHINGRIX)(50 YRS UP) ZOSTER VACCINE RECOMBINANT, 0.5 ML, IM 04/15/2018 INFLUENZA VACCINE QUADRIVALENT 6 MOS UP PF IM ,04/15/2018 Social History Tobacco Use Types Packs/Day Years [...] on file 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 Gender Identity Not on file Sexual Orientation Not on file Last Filed Vital Signs Vital Sign Reading Time Taken Comments Blood Pressure 110/66 10/12/2024 9:34 AM CDT Pulse 93 10/12/2024 9:34 AM CDT Temperature 36.8 C (98.2 F) 10/09/2017 8:00 AM CDT Respiratory Rate 18 10/09/2017 10:3 3 AM CDT Oxygen Saturation 97% 10/12/2024 9:34 AM CDT Inhaled Oxygen Concentration - - Weight 112.7 kg (248 lb 6.4 oz) 10/12/2024 9:34 AM CDT Height 162.6 cm (5' 4 ) 10/12/2024 9:34 AM CDT Body Mass Index 42.64 10/12/2024 9:34 AM CDT Plan of Treatment Health Maintenance Due Date Last Done Comments DTAP/TDAP/TD VACCINES (1 - Tdap) 1974 BREAST CANCER SCREENING 1995 COLORECTAL SCREENING 2000 Colorectal Cancer Screening 2000 FIT-DNA Q 3 years 2000 FIT/FOBT Q 1 year 2000 Flex Sig/CT Colonography Q 5 years 2000 PNEUMOCOCCAL VACCINE 50+ YEA RS (1 of 1 - PCV) 2005 RSV VACCINE (60+ or ) (1 - Risk 60-74 years 1-dose series) 2015 ZOSTER VACCINE (2 of 2) 06/10/2018 04/15/2018 OSTEOPOROSIS SCREENING 2020 INFLUENZA VACCINE (#1) 2024 04/03/2020, 2017 [place] Prev entative Visit/Annual Wellness Visit 07/26/2024 Pre-Diabetes and Diabetes Screening 10/13/202710/12 Procedures Procedure Name Priority Date/Time Associated Diagnosis Comments HEMOGLOBIN A1C Routine 10/12/2024 9:47 AM CDT CBC WITHOUT DIFFERENTIAL Routine 10/12/2024 9:47 AM CDT BASIC METABOLIC PANEL Routine 10/12/2024 9:47 AM CDT EKG 12-LEAD Routine 10/12/2024 9:42 AM CDT CALCIUM IONIZED Routine 10/04/2024 11:32 AM CDT Primary hyperparathyroidism PTH INTACT Routine 10/04/2024 11:32 AM CDT Primary hyperparathyroidism from Last 3 Months Results * (ABNORMAL) CBC WITHOUT DIFFERENTIAL (10/12/2024 9:47 AM CDT) Pathologist [facility] WBC 5.2 4.0 - 9.8 K/uL 10/12/2024 10:42 AM CDT [facility] - [facility] RBC 3.57(L) 3.90 - 4.90 M/uL 10/12/2024 10:42 AM CDT [facility] - [facility] HEMOGLOBIN 8.5(L) 11.8 - 14.8 g/dL 10/12/2024 10:42 AM CDT [facility] - [facility] HEMATOCRIT 29.2(L) 35.5 - 44.0 % 10/12/2024 10:42 AM CDT [facility] - [facility] MCV 81.8(L) 82.0 - 99.0 fL 10/12/2024 10:42 AM CDT [facility] - [facility] MCH 23.8(L) 27.2 - 32.6 pg 10/12/2024 10:42 AM CDT [facility] MCHC 29.1(L) 31.5 - 35.5 g/dL 10/12/2024 10:42 AM CDT [facility] PLATELETS 392(H) 140 - 350 K/uL 10/12/2024 10:42 AM CDT [facility] MPV 9.3 9.3 - 12.4 fL 10/12/2024 10:42 AM CDT [facility] [employer] [facility] RDW 18.4(H) 11.5 - 14.5 % 10/12/2024 10:42 AM CDT [facility] [employer] [facility] RDW-STDEV 54.4(H) 37.1 - 48.7 fL 10/12/2024 10:42 AM CDT [facility] [employer] [facility] Blood Venipuncture / Unknown 10/12/2024 9:47 AM CDT 10/12/2024 10:31 AM CDT Saira Downs ROLLED OATS MILL OPERATOR HEMATOLOGY ORDERABLES Fin al Result [facility] [employer] [facility] CLIA# [id number] [address] [facility] [place] [address] * (ABNORMAL) HEMOGLOBIN A1C (10/12/2024 9:47 AM CDT) HEMOGLOBIN A1C 6.0(H) <5.7 % 10/12/2024 10:59 AM CDT [facility] [employer] [facility] EST. AVG GLUCOSE, A1C 126 mg/dL 10/12/2024 10:59 AM CDT [facility] [employer] [facility] Blood Venipuncture / Unknown 10/12/2024 9:47 AM CDT 10/12/2024 10:31 AM CDT Narrative [facility] - 10/12/2024 10:59 AM CDT HGB A1C INTERPRETATION NORMAL: <5.7% PRE-DIABETES: 5.7 - 6.4% DIABETES: 6.5% OR GREATER Saira Downs [facility] CHEMISTRY ORDERABLES Hillary singh Result [facility] - [facility] CLSTARLA# [id number] [address] [place] [address] * (ABNORMAL) BASIC METABOLIC PANEL (10/12/2024 9:47 AM CDT) SODIUM 137 136 - 145 mmol/L 10/12/2024 11:17 AM [facility] LABORATORY SERVICES - . CARLOS POTASSIUM 4.4 3.5 - 5.0 mmol/L 10/12/2024 11:17 AM [facility] [employer] LABORATORY SERVICES - . [facility] CHLORIDE 102 98 - 107 mmol/L 10/12/2024 11:17 AM [facility] LABORATORY SERVICES - . [facility] CO2 24 22 - 29 mmol/L 10/12/2024 11:17 AM [facility] [employer] LABORATORY [facility] CALCIUM 10.1 8.6 - 10.2 mg/dL 10/12/2024 11:17 AM [facility] LABORATORY [facility] - . [facility] BUN 16 8 - 23 mg/dL 10/12/2024 11:17 AM [facility] LABORATORY [facility] - . [facility] CREATININE 0.86 0.51 - 0.95 mg/dL 10/12/2024 11:17 AM [facility] LABORATORY SERVICES - [facility] GLUCOSE 149(H) 74 - 99 mg/dL 10/12/2024 11:17 AM [facility] [employer] LABORATORY SERVICES - . [facility] GFR >60 >=60 mL/min/1.7 3 sq meter 10/12/2024 11:17 AM [facility] [employer] LABORATORY SERVICES - [facility] Comment:eGFR calculated with 2020 CKD-EPI equation. Vegetarian diet, extremely high or low muscle mass, and may affect results. Cystatin C with Glomerular Filtration Rate is a suitable alternative for these patients. ANION GAP 11 8 - 16 mmol/L 10/12/2024 11:17 AM [facility] SERVICES - [facility] Blood Venipuncture / Unknown 10/12/2024 9:47 AM CDT 10/12/2024 10:31 AM CDT us Saira Downs ROLLED OATS MILL OPERATOR CHEMISTRY ORDERABLES Hillary l Result Performing Organization Address City/State/[facility] Co de Phone Number [facility] SERVICES 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: [facility] : 1955 Requested By: MARIA ESTHER Gutierrez Order Number: [id number] Reading MD: Esteban Oswald Measurements Intervals [place] Rate: 88 P: 45 CT: 204 QRS: -36 QRSD: 159 T: 31 QT: 383 QTc: 464 Interpretive Statements Sinus rhythm Right bundle branch block Probable left ventricular hypertrophy Electronically Signed On 10-12-2024 13:30:45 CDT by Esteban Oswald Procedure Note Esteban Oswald MD - 10/12/2024 [facility] [address] [place] [address] Test Date: 2024-10-12 Pat Name: DANITA HIGGINS Department: 36 Room: Gender: Female 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: [facility] : 1955 Requested By: MARIA ESTHER Gutierrez Order Number: [id number] Reading : Esteban Oswald Measurements Intervals [place] Rate: 88 P: 45 CT: 204 QRS: -36 QRSD: 159 T: 31 QT: 383 QTc: 464 Interpretive Statements Sinus rhythm Right bundle branch block Probable left ventricular hypertrophy Electronically Signed On 10-12-2024 13:30:45 CDT by Esteban Oswald us Saira Downs ROLLED OATS MILL OPERATOR ECG ORDERABLES Final Res ult INTERFACE SYSTEM Refer to clinic/hospital department * (ABNORMAL) PTH INTACT (10/04/2024 11:32 AM CDT) PTH INTACT 171(H) 16 - 77 pg/mL [facility] Comment: Interpretive Guide Intact PTH Calcium ------- Normal Parathyroid Normal Normal Hypoparathyroidism Low or Low Normal Low Hyperparathyroidism Primary Normal or High High Secondary High Normal or Low Tertiary High High Non-Parathyroid Hypercalcemia Low or Low Normal High Test Performed at: [facility] [address] [place] [address] Nicole Montano MD Blood 10/04/2024 11:3 2 AM CDT 10/04/2024 11:32 AM CDT Maria Esther Teran MD CHEMISTRY ORDERABLES Final Resul t Performing Organization Address City/[facility]/ZIP Co de Phone Number [facility] [phone] [facility] [address] [place] [address] * CALCIUM IONIZED (10/04/2024 11:32 AM CDT) CALCIUM IONIZED 5.1 4.7 - 5.5 mg/dL [facility] Comment: Test Performed at: [facility] [address] [place] [address] Nicole Montano MD Blood 10/04/2024 11:3 2 AM CDT 10/04/2024 11:32 AM CDT Maria Esther Teran MD CHEMISTRY ORDERABLES Final Resul t [facility] [phone] [facility] [address] [place] [address] from Last 3 Months Insurance [employer] PPO MCR Advance Directives For more information, please contact: [phone] * Full Code (Latest Code Status on File) Date Activated Date Inactivated Comments 10/08/2017 12:58 PM 10/09/2017 4:06 PM * Full Code Date Activated Date Inactivated Comments 10/08/2017 7:06 AM 10/08/2017 12:58 PM * Full Code Date Activated Date Inactivated Comments 10/08/2017 6:07 AM 10/08/2017 7:06 AM Care Teams Air Conditioner Installer Helper Relationship Specialty Start Date End Date Kiran Ly MD [address] [place] [address] [phone] PCP - General Internal Medicine 05/13/20
[2024-10-25 12:20] LABS: Ferritin 6.39 ng/mL (11.1-264)
[2024-10-25 12:22] LABS: Folic Acid 8.1 ng/mL (2.76->20)
== END 2024-10-25 10:29 | disposition home or self-care (01) ==
LOC: ANHLAB 10:31
PROVIDERS: PCP Emergency Medicine; Visit Provider Nurse Practitioner
DX: D50.9 Iron deficiency anemia, unspecified (principal)
CPT/HCPCS: 36415; 82607; 82728; 82746; 83540; 83550; 85027

== ENCOUNTER 2024-11-16 02:25 | Day surgery (SDC) | payer OTHER, SELFPAY ==
[2024-11-06 14:08] VITALS: BMI 41.6
--- OUTSIDE RECORDS SUMMARY | 2024-11-16 02:29 | XMS_ITS | Encounter Summary ---
Author Organization [facility] Address [address] [place] [address] Care Team Providers Care Veterinary Receptionist Name Role Phone Kiran Ly MD Primary Care Provider [phone] Reason for Visit * Reason Onset Date Comments Medication Refill 11/15/2024 Encounter Details Date Type Department Care Team (Late st Contact Info) Description 11/15/2024 Refill [facility], NOSE AND THROAT [address] [place] [address] Vaibhav Teran MD [address] 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
--- OUTSIDE RECORDS SUMMARY | 2024-11-16 02:29 | XMS_ITS | Clinical Summary ---
Author Organization [facility] Address [address] [facility] [address] Care Team Providers Care Noise Abatement Engineer Name Role Phone Kiran Ly MD Primary Care Provider [phone] Source Comments [facility],non-owned Affiliates and Associated Physician Practices is amultiple site organization consisting of ambulatory clinics and hospital sitesin [place], [place], [place]. This disclosure is being madepursuant to the Care Everywhere program and may not contain all information available regarding this patient. 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
--- OUTSIDE RECORDS SUMMARY | 2024-11-16 02:29 | XMS_ITS | Clinical Summary ---
Author Organization [facility] Address [address] [place] [place] [address] Phone Care Team Providers Care Software Engineer Kernel Name Role Phone Kiran Ly MD Primary Care Provider [phone] Allergies Active Allergy Reactions Criticality Noted Date [...] Take 81 mg by mouth daily. Active cholecalcifero l 50,000 unit Capsule Take by mouth. Activ e cholecalcifero l, vitamin D3, 1,000 unit Take by mouth. [...] daily with meals. 90 Tablet 8 Active HYDROcodone-ac etaminophen (NORCO) 5-325 mg tablet Take 1 Tablet [...] mg tablet topiramate 50 mg tablet Active semaglutide (OZEMPIC SUBCUT) Inject by subcutaneous injection every 7 days. Active venlafaxine HCl (VENLAFAXINE ORAL) Take 150 mg by mouth daily. Active lansoprazole (PREVACID ORAL) Take by mouth. Activ e alendronate sodium (ALENDRONATE ORAL) Take by mouth every 7 days. Active cyanocobalamin 1,000 mcg Tablet Take 1,000 mcg by mouth daily. Active levothyroxine 150 mcg tablet Take 1 Tablet (150 mcg) by mouth daily in the morning. 30 Tablet 5 Active levothyroxine 150 mcg tablet TAKE 1 TABLET BY MOUTH ONCE DAILY IN THE MORNING 30 Tablet 5 025 Discontin ued(Reord er) Active Problems No known active problems Encounters Date Type Department Care Team Description 11/15/2024 [facility] EAR, NOSE AND THROAT [facility] 607 [facility] [address] [place] [address] Maria Esther Teran MD 10/23/2024 Refill [facility] EAR, NOSE AND THROAT [facility] [address] [address] Maria Esther Teran MD 10/23/2024 Hospital Encounter [facility] Operating Room [address] [place] [address] Maria Esther Teran MD Primary hyperparathyroidism 10/12/2024 9:18 AM CDT - 10/12/2024 11:59 PM CDT Hospital Encounter [facility] [address] [place] [address] Maria Esther Teran MD Discharge Disposition: Home or Self Care 10/03/2024 10:00 AM CDT Office Visit [facility] EAR, NOSE AND THROAT [facility] [address] [address] Maria Esther Teran MD Primary hyperparathyroidism (Primary Dx); Postoperative hypothyroidism; Chronic lymphocytic thyroiditis 10/03/2024 Prep for Surgery [facility] EAR, NOSE AND THROAT [facility] [address] [address] Kam Justin PA Primary hyperparathyroidism (Primary Dx) 10/03/2024 Chart Note [facility] EAR, NOSE AND THROAT [facility] [address] [address] Aubree Parker, [facility] 10/03/2024 Orders Only [facility] EAR, NOSE AND THROAT [facility] [address] [place] [phone] Aubree Parker, [facility] 09/23/2024 Refill [facility] EAR, NOSE AND THROAT [facility] [address] [place] [address] Maria Esther Teran MD 08/26/2024 [facility] EAR, NOSE AND THROAT 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 Gender Identity Not on file Sexual Orientation [...] 2020 INFLUENZA VACCINE (#1) 2024 04/03/2020, 2017 Pre-Diabetes and Diabetes Screening 10/13/202710/12 Procedures Procedure [...] WITHOUT DIFFERENTIAL (10/12/2024 9:47 AM CDT) Pathologist [facility] WBC 5.2 4.0 - 9.8 K/uL 10/12/2024 10:42 AM CDT [facility] LABORATORY SERVICES [facility] RBC 3.57(L) 3.90 - 4.90 M/uL 10/12/2024 10:42 AM CDT [facility] LABORATORY SERVICES [facility] HEMOGLOBIN 8.5(L) 11.8 - 14.8 g/dL 10/12/2024 10:42 AM CDT [facility] LABORATORY SERVICES [facility] HEMATOCRIT 29.2(L) 35.5 - 44.0 % 10/12/2024 10:42 AM CDT [facility] LABORATORY SERVICES [facility] MCV 81.8(L) 82.0 - 99.0 fL 10/12/2024 10:42 AM CDT [facility] LABORATORY [facility] MCH 23.8(L) 27.2 - 32.6 pg 10/12/2024 10:42 AM CDT [facility] LABORATORY SERVICES - [facility] MCHC 29.1(L) 31.5 - 35.5 g/dL 10/12/2024 10:42 AM CDT [facility] LABORATORY SERVICES - [facility] PLATELETS 392(H) 140 - 350 K/uL 10/12/2024 10:42 AM CDT [facility] LABORATORY [facility] MPV 9.3 9.3 - 12.4 fL 10/12/2024 10:42 AM CDT [facility] LABORATORY SERVICES [facility] RDW 18.4(H) 11.5 - 14.5 % 10/12/2024 10:42 AM CDT [facility] LABORATORY SERVICES [facility] RDW-STDEV 54.4(H) 37.1 - 48.7 fL 10/12/2024 10:42 AM CDT [facility] MENA OPPORTUNITIES [facility] Blood Venipuncture / Unknown 10/12/2024 9:47 AM CDT 10/12/2024 10:31 AM CDT Saira Downs LATENT FINGERPRINT EXAMINER HEMATOLOGY ORDERABLES Fin al Result [facility] MENA OPPORTUNITIES [facility]# [id number] [address] [facility] [place] [address] * (ABNORMAL) HEMOGLOBIN A1C (10/12/2024 9:47 AM CDT) HEMOGLOBIN A1C 6.0(H) <5.7 % 10/12/2024 10:59 AM CDT [facility] LABORATORY SERVICES [facility] EST. AVG GLUCOSE, A1C 126 mg/dL 10/12/2024 10:59 AM CDT [facility] [employer] OPPORTUNITIES [facility] Blood Venipuncture / Unknown 10/12/2024 9:47 AM CDT 10/12/2024 10:31 AM CDT Narrative [facility] LABORATORY SERVICES - [facility] - 10/12/2024 10:59 AM CDT HGB A1C INTERPRETATION NORMAL: <5.7% PRE-DIABETES: 5.7 - 6.4% DIABETES: 6.5% OR GREATER Saira Downs [facility] CHEMISTRY ORDERABLES Hillary singh Result [facility] LABORATORY SERVICES - [facility] CLIA# [id number] 5 [facility] [place]DA AHN [address] * (ABNORMAL) BASIC METABOLIC PANEL (10/12/2024 9:47 AM CDT) SODIUM 137 136 - 145 mmol/L 10/12/2024 11:17 AM T [facility] LABORATORY SERVICES - [facility] POTASSIUM 4.4 3.5 - 5.0 mmol/L 10/12/2024 11:17 AM [facility] - [facility] CHLORIDE 102 98 - 107 mmol/L 10/12/2024 11:17 AM T [facility] LABORATORY SERVICES - . [facility] CO2 24 22 - 29 mmol/L 10/12/2024 11:17 AM [facility] LAB[facility]AT[facility] SERVICES - [facility] CALCIUM 10.1 8.6 - 10.2 mg/dL 10/12/2024 11:17 AM [facility] LABORATORY SERVICES - . [facility] BUN 16 8 - 23 mg/dL 10/12/2024 11:17 AM [facility] LAB[facility]ATORY SERVICES - [facility] CREATININE 0.86 0.51 - 0.95 mg/dL 10/12/2024 11:17 AM [facility] LABORATORY SERVICES - [facility] GLUCOSE 149(H) 74 - 99 mg/dL 10/12/2024 11:17 AM [facility] LABORATORY SERVICES - . [facility] GFR >60 >=60 mL/min/1.7 3 sq meter 10/12/2024 11:17 AM [facility] LABORATORY SERVICES [facility] Comment:eGFR calculated with 2020 CKD-EPI equation. Vegetarian diet, extremely high or low muscle mass, and may affect results. Cystatin C with Glomerular Filtration Rate is a suitable alternative for these patients. ANION GAP 11 8 - 16 mmol/L 10/12/2024 11:17 AM CDT [facility] LABORATORY SERVICES [facility] Blood Venipuncture / Unknown 10/12/2024 9:47 AM CDT 10/12/2024 10:31 AM CDT us Saira Downs LATENT FINGERPRINT EXAMINER CHEMISTRY ORDERABLES Hillary l Result 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 : 1955 Requested By: MARIA ESTHER Gutierrez Order Number: [id number] Reading MD: Esteban Oswald Measurements Intervals [place] Rate: 88 P: 45 HI: 204 QRS: -36 QRSD: 159 T: 31 QT: 383 QTc: 464 Interpretive Statements Sinus rhythm Right bundle branch block Probable left ventricular hypertrophy Electronically Signed On 10-12-2024 13:30:45 CDT by Esteban Oswald Procedure Note Esteban Oswald MD - 10/12/2024 [facility] [address] [place] [address] Test Date: 2024-10-12 Pat Name: [facility] Department: 36 Room: Gender: Female 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 : 1955 Requested By: MARIA ESTHER Gutierrez Order Number: [id number] Reading MD: Esteban Oswald Measurements Intervals [place] Rate: 88 P: 45 HI: 204 QRS: -36 QRSD: 159 T: 31 QT: 383 QTc: 464 Interpretive Statements Sinus rhythm Right bundle branch block Probable left ventricular hypertrophy Electronically Signed On 10-12-2024 13:30:45 CDT by Esteban Oswald us Saira Downs LATENT FINGERPRINT EXAMINER ECG ORDERABLES Final Res ult Performing Organization Address City/[facility] Co de Phone Number INTERFACE SYSTEM Refer to clinic/hospital department * (ABNORMAL) PTH INTACT (10/04/2024 11:32 AM CDT) PTH INTACT 171(H) 16 - 77 pg/mL [facility] Comment: Interpretive Guide Intact PTH Calcium ------- Normal Parathyroid Normal Normal Hypoparathyroidism Low or Low Normal Low Hyperparathyroidism Primary Normal or High High Secondary High Normal or Low Tertiary High High Non-Parathyroid Hypercalcemia Low or Low Normal High Test Performed at: [facility] [address] [place] [address] Nicole Montano MD Blood 10/04/2024 11:3 2 AM CDT 10/04/2024 11:32 AM CDT us Maria Esther Teran MD CHEMISTRY ORDERABLES Final Resul t Performing Organization Address [facility] de Phone Number [facility] [phone] [facility] [address] [place] [phone] * CALCIUM IONIZED (10/04/2024 11:32 AM CDT) CALCIUM IONIZED 5.1 4.7 - 5.5 mg/dL [facility] Comment: Test Performed at: [facility] [address] [place] [address] Nicole Montano MD Blood 10/04/2024 11:3 2 AM CDT 10/04/2024 11:32 AM CDT us Mari aEsther Teran MD CHEMISTRY ORDERABLES Final Resul t Performing Organization Address City/[facility]/ZIP Co de Phone Number [facility] [phone] [facility] [address] [address] [place] [address] from Last 3 Months Insurance [employer] PPO MCR Advance Directives For more information, please contact: [phone] * Full Code (Latest Code Status on File) Date Activated Date Inactivated Comments 10/08/2017 12:58 PM 10/09/2017 4:06 PM * Full Code Date Activated Date Inactivated Comments 10/08/2017 7:06 AM 10/08/2017 12:58 PM * Full Code Date Activated Date Inactivated Comments 10/08/2017 6:07 AM 10/08/2017 7:06 AM Care Teams Software Engineer Kernel Relationship Specialty Start Date End Date Kiran Ly MD [address] [place] [address] PCP - General Internal Medicine 05/13/20
--- OUTSIDE RECORDS SUMMARY | 2024-11-16 02:29 | XMS_ITS | Encounter Summary ---
Author Organization [facility] Address [address] [place] [address] Care Team Providers Care Web Worker Name Role Phone Kiran Ly MD Primary Care Provider [phone] Reason for Visit * Auth/Cert (Routine) Specialty Diagnoses / Procedures Referred By Contsonny t Referred To Contact Perioperative Diagnoses Primary hyperparathyroidism Procedures ME PARATHYROIDECTOMY/EXPLOR PARATHYROIDS RE-EXPLOR ME PARATHYROIDECTOMY/EXPLOR PARATHYROIDS RE-EXPLOR ME PARATHYROID AUTOTRANSPLANTATION ADD-ON PARATHYROID RE-EXPLORATION WITH RE-IMPLANTATION Vaibhav Teran MD [address] [address] Phone: tel: fax: [facility] Operating Room [address] [place] [address] Phone: tel: fax: Referral ID Status Reason Start Date Expiration Date Visits Re quested Visits Authorized [id number] 1 1 Encounter Details Date Type Department Care Team (Latest Contact Info) Description 10/23/2024 Hospital Encounter [facility] Operating Room [address] [place] [address] Vaibhav Teran MD [address] [facility] [address] [place] [address] Primary hyperparathyroidism Social History Tobacco [...] on file 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 Will be seeing a GI Dr. Pt has called 's office to notify. documented in this encounter Plan of Treatment Not on file documented as of this encounter Visit Diagnoses Not on filedocumented in this encounter Care Teams Web Worker Relationship Specialty Start Date End Date Kiran Ly MD [address] [place] [address] PCP - General Internal Medicine 05/13/20 documented as of this encounter
--- OUTSIDE RECORDS SUMMARY | 2024-11-16 02:29 | XMS_ITS | Encounter Summary ---
Author Organization [facility] Address 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
--- OUTSIDE RECORDS SUMMARY | 2024-11-16 02:29 | XMS_ITS | Clinical Summary ---
Author Organization [facility] Address [address] [place] [address] Care Team Providers Care Scrap Shear Operator Name Role Phone Kiran Ly MD Primary Care Provider [phone] Social History Tobacco Use Types Packs/Day Years [...] 1 - Tdap) 1974 Mammogram Screening 1995 Pneumococcal Vaccine: 50+ Ye ars (1 of 1 - PCV) 2005 Zoster Vaccines (2 of 2) 06/10/2018 04/15/2018 Dexa Scan (General) 2020 COVID-19 Vaccine ( - 2023-2 5 season) 2024 RSV Immunization or 60+ Years (1 - 1-dose 75+ series) 2030 Meningococcal B Vaccine Aged Out No l onger eligible based on patient's age to complete this topic Meningococcal Vaccine Aged Out No rohit reno eligible based on patient's age to complete this topic RSV Immunizations Under 20 Months Aged Out No longer eligible based on patient's age to complete this topic Insurance MEDICARE PART A [facility] Care Teams Scrap Shear Operator Relationship Specialty Start Date End Date Kiran Ly MD [address] [place] [address] PCP - General INTERNAL MEDICINE 06/01/22
--- OUTSIDE RECORDS SUMMARY | 2024-11-16 02:29 | XMS_ITS | Encounter Summary ---
Author Organization [facility] Address 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
[2024-11-16 10:38] VITALS: BP 138/60; PULSE 104; RESP 18; TEMP 36.6; O2SAT 100
[2024-11-16] MEDS: LACTATED RINGERS 1,000 ML 150 ML IV CONT (10:47)
[2024-11-16 10:55] LABS: Glucose Point of Care 120 mg/dl (65-105)
--- NOTE | 2024-11-16 11:13 | WPDANESEPPF ---
Anes - Initial Pre Proc Eval Procedure: Operation Date: 11/16/24 14:00 Proposed Procedures p Esophagogastroduodenoscopy & Colonoscopy - Denys Edwards MD Date/Time: 11/16/24 11:13 Surgeon: Denys Edwards MD Pre Op Diagnosis: Iron deficiency anemia,Dysphagia,Personal hx colon Patient Data Age: 69 Gender: F Height: 1.63 m Weight: 109.5 kg Last Vital Signs Temp 98 F 11/16/24 10:38 Pulse 104 H 11/16/24 10:38 Resp 18 11/16/24 10:38 BP 138/60 11/16/24 10:38 Pulse Ox 100 11/16/24 10:38 O2 Del Method Room Air 11/16/24 10:38 Allergies Allergy/AdvReac Type Severity Reaction Status Date / Time bupropion (From Wellbutrin) AdvReac Severe Hallucinati Verified 11/16/24 10:34 ng morphine AdvReac Mild Nausea and Verified 11/16/24 10:34 Vomiting Home Medications ?Medication ?Instructions ?Recorded ?Confirmed ?Type lansoprazole 15 mg capsule,delayed 15 mg PO DAILY 09/11/19 11/16/24 History release latanoprost 0.005 % eye drops 1 drop ophthalmic (eye) QPM 09/11/19 11/16/24 History aspirin 81 mg capsule 81 mg PO DAILY 02/16/23 11/16/24 History blood sugar diagnostic #100 ea 09/09/23 10/30/24 Rx blood-glucose meter (FreeStyle #1 ea 10/01/23 10/30/24 Rx Lite Meter kit) levothyroxine 137 mcg tablet 137 mcg PO DAILY 10/11/23 11/16/24 History ergocalciferol (vitamin D2) 1,250 See Rx Instructions .Route 05/16/24 11/16/24 Rx mcg (50,000 unit) capsule .COMPLEX #12 caps gabapentin 300 mg capsule 300 mg PO .COMPLEX #90 caps 07/03/24 11/16/24 Rx gabapentin 600 mg tablet See Rx Instructions .Route .COMPLEX 07/03/24 11/16/24 History ezetimibe 10 mg tablet See Rx Instructions .Route 07/14/24 11/16/24 Rx .COMPLEX #90 tabs alendronate 70 mg tablet See Rx Instructions .Route 08/02/24 11/16/24 Rx .COMPLEX #12 tabs candesartan 32 mg tablet See Rx Instructions .Route 08/21/24 11/16/24 Rx .COMPLEX #90 tabs metformin 500 mg tablet,extended See Rx Instructions .Route 08/21/24 11/16/24 Rx release 24 hr .COMPLEX #180 tabs metoprolol succinate 50 mg See Rx Instructions .Route 08/21/24 11/16/24 Rx tablet,extended release 24 hr .COMPLEX #90 tabs venlafaxine 150 mg See Rx Instructions .Route 10/11/24 11/16/24 Rx capsule,extended release 24 hr .COMPLEX #90 caps rosuvastatin 10 mg tablet (Crestor) 10 mg PO DAILY #90 tabs 10/23/24 11/16/24 Rx ferrous sulfate 324 mg (65 mg 324 mg PO DAILY #30 tabs 10/25/24 11/16/24 Rx iron) tablet,delayed release semaglutide 1 mg/dose (4 mg/3 mL) 1 mg (0.75 mL) subcut WEEKLY #3 mL 11/01/24 11/06/24 Rx subcutaneous pen injector (Ozempic) cyanocobalamin (vitamin B-12) 1,000 mcg PO DAILY 11/06/24 11/16/24 History 1,000 mcg tablet (Vitamin B-12) Laboratory Tests 11/16/24 10:52 POC Capillary Glucose 120 H mg/dl (65-105) Patient hx anesthesia problems: none Family hx anesthesia problems: none Results Review: All pre-operative results and documents have been reviewed as part of the pre-operative evaluation. [facility] Past Medical History Medical History COVID-19 Sinus congestion COVID-19 ISAIAH on CPAP Atrial fibrillation Shoulder pain Anemia BMI 45.0-49.9, adult Benign familial tremor Blood glucose elevated Chronic sinusitis Multiple fractures of ribs, right side, initial encounter for closed fracture History of colon polyps History of kidney stones Hyperparathyroidism Injury of digital nerve of right index finger, initial encounter Iron deficiency anemia Kidney stones Parathyroid adenoma Parkinson disease Thyroid nodule Vitamin D deficiency Glaucoma FH: cholecystectomy (~1999) Neuropathy Depression Hypothyroidism (acquired) HLD (hyperlipidemia) HTN (hypertension) Diabetes mellitus Surgical History Surgical History H/O thyroidectomy Hx of cardiac cath (~2010) S/P foot surgery, left H/O gastric bypass (~2006) H/O section (~1983) H/O section (~1978) Family History Family History Father Family history of coronary artery disease Lung cancer Liver cancer COPD (chronic obstructive pulmonary disease) Mother Family history of chronic obstructive pulmonary disease Family history of congestive heart failure Social History Social History Smoking status: Never smoker Second hand tobacco smoke exposure: No Alcohol intake: never Substance use: never Substance use type: does not use Do You Feel Safe in your Home?: Yes Lack of Transportation: No Lack of Food: Never True Current Housing: Decline to Answer Concerned About Future Housing: Decline to Answer Difficulty Paying Gas/Electric Bills: Decline to Answer Difficulty Paying for Meds: Decline to Answer Currently Unemployed: Decline to Answer Education: Decline to Answer Difficulty w/ Childcare or Family Care: Decline to Answer Living arrangements: alone Additional living arrangements comments: LIVES WITH SON ADRIANE Occupation/Education: retired Gender identity (if verbalized by the patient): Female Spiritual care concerns: No Anes - Eval Final PreProcedure Day of Procedure 11/16/24 11:13 Patient weight: morbidly obese Heart: regular rate and rhythm Lungs: clear to auscultation Airway: Mallampati scale class II Neurological: alert and oriented Last oral intake: >/= 8 hours ASA classification: IV Emergent: no Anesthetic plan: proceed Anesthesia type and monitoring: general GIVS and standard monitoring Results Review: All pre-operative results and documents have been reviewed as part of the pre-operative evaluation. Informed Consent: The patient's anesthetic plan and its attendant risks and benefits were discussed with the patient/family/POA. Questions were solicited and answers provided to the satisfaction of the patient/family/POA.
--- NOTE | 2024-11-16 11:45 | P.HP_ITS ---
H&P: HPI History of Present Illness Date/Time: 11/16/24 11:45 Chief Complaint: History of colon polyps-anemia. Narrative: This patient with a history of Olvin-en-Y gastric bypass in 2006 was recently found to be anemic prior to scheduled thyroid surgery. Additionally, she had a colonoscopy 5 years ago and is referred for a surveillance colonoscopy concurrently with her anemia evaluation. Therefore, she is referred for both EGD and colonoscopy. Review of Systems Review of Systems: All systems reviewed & are unremarkable except as noted in HPI and below PMFSH Past Medical History Medical History (Updated 11/16/24 @ 11:47 by Denys Edwards MD) COVID-19 Sinus congestion COVID-19 ISAIAH on CPAP Atrial fibrillation Shoulder pain Anemia BMI 45.0-49.9, adult Benign familial tremor Blood glucose elevated Chronic sinusitis Multiple fractures of ribs, right side, initial encounter for closed fracture History of colon polyps History of kidney stones Hyperparathyroidism Injury of digital nerve of right index finger, initial encounter Iron deficiency anemia Kidney stones Parathyroid adenoma Parkinson disease Thyroid nodule Vitamin D deficiency Glaucoma FH: cholecystectomy (~1999) Neuropathy Depression Hypothyroidism (acquired) HLD (hyperlipidemia) HTN (hypertension) Diabetes mellitus Surgical History Surgical History H/O thyroidectomy Hx of cardiac cath (~2010) S/P foot surgery, left H/O gastric bypass (~2006) H/O section (~1983) H/O section (~1978) Family History Family History Father Family history of coronary artery disease Lung cancer Liver cancer COPD (chronic obstructive pulmonary disease) Mother Family history of chronic obstructive pulmonary disease Family history of congestive heart failure Social History Social History Smoking status: Never smoker Second hand tobacco smoke exposure: No Alcohol intake: never Substance use: never Substance use type: does not use Do You Feel Safe in your Home?: Yes Lack of Transportation: No Lack of Food: Never True Current Housing: Decline to Answer Concerned About Future Housing: Decline to Answer Difficulty Paying Gas/Electric Bills: Decline to Answer Difficulty Paying for Meds: Decline to Answer Currently Unemployed: Decline to Answer Education: Decline to Answer Difficulty w/ Childcare or Family Care: Decline to Answer Living arrangements: alone Additional living arrangements comments: LIVES WITH SON ADRIANE Occupation/Education: retired Gender identity (if verbalized by the patient): Female Spiritual care concerns: No Meds Home Medications and Allergies Home Medications ?Medication ?Instructions ?Recorded ?Confirmed ?Type lansoprazole 15 mg capsule,delayed 15 mg PO DAILY 09/11/19 11/16/24 History release latanoprost 0.005 % eye drops 1 drop ophthalmic (eye) QPM 09/11/19 11/16/24 History aspirin 81 mg capsule 81 mg PO DAILY 02/16/23 11/16/24 History blood sugar diagnostic #100 ea 09/09/23 10/30/24 Rx blood-glucose meter (FreeStyle #1 ea 10/01/23 10/30/24 Rx Lite Meter kit) levothyroxine 137 mcg tablet 137 mcg PO DAILY 10/11/23 11/16/24 History ergocalciferol (vitamin D2) 1,250 See Rx Instructions .Route 05/16/24 11/16/24 Rx mcg (50,000 unit) capsule .COMPLEX #12 caps gabapentin 300 mg capsule 300 mg PO .COMPLEX #90 caps 07/03/24 11/16/24 Rx gabapentin 600 mg tablet See Rx Instructions .Route .COMPLEX 07/03/24 11/16/24 History ezetimibe 10 mg tablet See Rx Instructions .Route 07/14/24 11/16/24 Rx .COMPLEX #90 tabs alendronate 70 mg tablet See Rx Instructions .Route 08/02/24 11/16/24 Rx .COMPLEX #12 tabs candesartan 32 mg tablet See Rx Instructions .Route 08/21/24 11/16/24 Rx .COMPLEX #90 tabs metformin 500 mg tablet,extended See Rx Instructions .Route 08/21/24 11/16/24 Rx release 24 hr .COMPLEX #180 tabs metoprolol succinate 50 mg See Rx Instructions .Route 08/21/24 11/16/24 Rx tablet,extended release 24 hr .COMPLEX #90 tabs venlafaxine 150 mg See Rx Instructions .Route 10/11/24 11/16/24 Rx capsule,extended release 24 hr .COMPLEX #90 caps rosuvastatin 10 mg tablet (Crestor) 10 mg PO DAILY #90 tabs 10/23/24 11/16/24 Rx ferrous sulfate 324 mg (65 mg 324 mg PO DAILY #30 tabs 10/25/24 11/16/24 Rx iron) tablet,delayed release semaglutide 1 mg/dose (4 mg/3 mL) 1 mg (0.75 mL) subcut WEEKLY #3 mL 11/01/24 11/06/24 Rx subcutaneous pen injector (Ozempic) cyanocobalamin (vitamin B-12) 1,000 mcg PO DAILY 11/06/24 11/16/24 History 1,000 mcg tablet (Vitamin B-12) Allergies Allergy/AdvReac Type Severity Reaction Status Date / Time bupropion (From Wellbutrin) AdvReac Severe Hallucinati Verified 11/16/24 10:34 ng morphine AdvReac Mild Nausea and Verified 11/16/24 10:34 Vomiting Vital Signs Vital Signs - 24 hr 11/16/24 10:38 Temperature 98 F Pulse Rate 104 H Respiratory Rate 18 Blood Pressure 138/60 Pulse Oximetry 100 Oxygen Delivery Room Air Exam 2 Const: General: cooperative and healthy appearing Resp: Effort & Inspection: normal respiratory effort and able to speak in complete sentences Auscultation: clear to auscultation bilaterally Cardio: Rate: regular rate Rhythm: regular rhythm GI: Inspection: normal to inspection GI Palp: No No hepatosplenomegaly present Auscultation: normal bowel sounds Rectal Exam: deferred Skin: General skin exam: normal color Psych: Appearance: grossly normal Mental Status: mental status grossly normal Assessment and Plan Assessment and plan (1) History of colon polyps: Code(s): Z86.010 - Personal history of colon polyps Status: Acute Assessment and Plan: The patient is deemed a good candidate for the procedures. Consent signed. Will proceed. (2) Anemia: Code(s): D64.9 - Anemia, unspecified Status: Acute
[2024-11-16] MEDS: BENZOCAINE (*SP) 60 ML SPRAY CAN (HURRICAINE) 1 SPRAY MUCOUS MEM (11:56)
--- NOTE | 2024-11-16 12:03 | SUR.OPER ---
EGD end 1202 COLONOSCOPY START 1206
[2024-11-16 12:40] VITALS: BP 113/56; PULSE 76; RESP 21; O2SAT 100
[2024-11-16 12:50] VITALS: BP 128/58; PULSE 78; RESP 17; O2SAT 100
[2024-11-16 13:00] VITALS: BP 131/68; PULSE 72; RESP 23; O2SAT 100
== END 2024-11-16 13:25 | disposition home or self-care (01) ==
PROVIDERS: PCP Emergency Medicine; Visit Provider Internal Medicine Gastroenterology
PROC: 0DJ08ZZ Inspection of Upper Intestinal Tract, Via Natural or Artificial Opening Endoscopic (ICD-10-PCS; CPT 45378; principal; 2024-11-16 14:00)
DX: Z12.11 Encounter for screening for malignant neoplasm of colon (principal); D12.2 Benign neoplasm of ascending colon; K64.8 Other hemorrhoids; D50.9 Iron deficiency anemia, unspecified; K21.9 Gastro-esophageal reflux disease without esophagitis; E03.9 Hypothyroidism, unspecified; E78.5 Hyperlipidemia, unspecified; I10 Essential (primary) hypertension; E11.9 Type 2 diabetes mellitus without complications; G47.33 Obstructive sleep apnea (adult) (pediatric); I48.91 Unspecified atrial fibrillation; J32.9 Chronic sinusitis, unspecified; E21.3 Hyperparathyroidism, unspecified; E55.9 Vitamin D deficiency, unspecified; F32.A Depression, unspecified; G25.0 Essential tremor; G20.A1 Parkinson's disease without dyskinesia, without mention of fluctuations; E66.01 Morbid (severe) obesity due to excess calories; Z68.41 Body mass index [BMI] 40.0-44.9, adult; Z79.82 Long term (current) use of aspirin; Z79.83 Long term (current) use of bisphosphonates; Z79.84 Long term (current) use of oral hypoglycemic drugs; Z79.85 Long-term (current) use of injectable non-insulin antidiabetic drugs; Z99.89 Dependence on other enabling machines and devices; Z98.890 Other specified postprocedural states; Z98.84 Bariatric surgery status; Z98.61 Coronary angioplasty status; Z87.442 Personal history of urinary calculi; Z80.1 Family history of malignant neoplasm of trachea, bronchus and lung; Z80.0 Family history of malignant neoplasm of digestive organs; Z82.49 Family history of ischemic heart disease and other diseases of the circulatory system
CPT/HCPCS: 43239; 45385; 82948; 88305; J2003; J2704; J7120

== ENCOUNTER 2024-12-07 08:39 | Outpatient (CLI) | payer OTHER, SELFPAY ==
--- NOTE | ~2024-12-07 | MM_ITS ---
EXAMINATION: MM screening susie BI w jr HISTORY: Screening TECHNIQUE: Craniocaudal and mediolateral oblique 3-D tomosynthesis images were obtained and synthetic 2-D images were generated. CAD analysis was submitted and interpreted. COMPARISON: Comparison to multiple prior studies sequentially, with oldest reviewed study dated 04/25. BREAST PARENCHYMAL COMPOSITION: Not dense: There are scattered areas of fibroglandular density. FINDINGS: There is no evidence of suspicious mass, calcification, or architectural distortion to sugg est malignancy in either breast. There has been no suspicious interval change. IMPRESSION: 1. No mammographic evidence of malignancy. 2. Recommend routine screening mammography in one year. BI-RADS Category 1: Negative Reviewed, dictated and finalized at location A.
--- OUTSIDE RECORDS SUMMARY | 2024-12-07 08:44 | XMS_ITS | Clinical Summary ---
Author Organization [facility] Address [address] [place] [place] [address] Phone Care Team Providers Care Mixing Machine Tender Cork Rod Name Role Phone Kiran Ly MD Primary Care Provider + [phone] Allergies Active Allergy Reactions Criticality Noted Date [...] Date Type Department Care Team Description 11/15/2024 [facility] EAR, NOSE AND [facility] [address] [facility] [address] [place] [phone] Maria Esther Teran MD 10/23/2024 Refill [facility] EAR, NOSE AND THROAT [facility] [address] [phone] Maria Esther Teran MD 10/12/2024 9:18 AM CDT - 10/12/2024 11:59 PM CDT Hospital Encounter [facility] [address] [place] [address] Maria Esther Teran MD Discharge Disposition: Home or Self Care 10/03/2024 10:00 AM CDT Office Visit [facility] EAR, NOSE AND THROAT [facility] [address] [place] [phone] Maria Esther Teran MD Primary hyperparathyroidism (Primary Dx); Postoperative hypothyroidism; Chronic lymphocytic thyroiditis 10/03/2024 Prep for Surgery [facility] EAR, NOSE AND THROAT [facility] [address] [place] [phone] Kam Justin PA Primary hyperparathyroidism (Primary Dx) 10/03/2024 Chart Note [facility] EAR, NOSE AND THROAT [address] [address] Aubree Parker CMA 10/03/2024 Orders Only [facility] EAR, NOSE AND THROAT [facility] [address] [place] [phone] Aubree Parker CMA 09/23/2024 Refill [facility] EAR, NOSE AND THROAT [facility] [address] [place] [phone] Maria Esther Teran MD from Last 3 [...] alcohol) rarely Food Insecurity Answer Date Recorded Patient needs follow up regardin 11/23/2024 Transportation Needs Answer Date Record ed Patient needs follow up regardin 11/23/2024 Housing Stability Answer Date Recorded Social/Environmental Concerns No concerns Utility Needs Answer Date Recorded Patient needs follow up regardin 11/23/2024 Comments No Sex and Gender Information Value Date Recorded Sex Assigned at Not on file Legal Sex Female 3:41 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 [place] [address] Primary hyperparathyroidism 12/11/2024 6:45 AM CDT - 12/11/2024 8:51 AM CDT Surgery [facility] Operating Room [address] [place] [address] Maria Esther Teran MD [address] [place] [address] PARATHYROID RE-EXPLORATION WITH RE-IMPLANTATION 12/19/2024 2:00 PM CDT Office Visit [facility] EAR, NOSE AND THROAT [facility] [address] [place] [address] Kam Justin PA [address] [place] [address] Scheduled Procedures Name Priority Associated Diagnoses Date/Ti me PARATHYROIDECTOMY Primary hyperparathyroidism 12/11/2024 6:45 AM CDT Health Maintenance Due Date Last Done Comments [...] CBC WITHOUT DIFFERENTIAL (10/12/2024 9:47 AM CDT) WBC 5.2 4.0 - 9.8 K/uL 10/12/2024 10:42 AM CDT [facility] RBC 3.57(L) 3.90 - 4.90 M/uL 10/12/2024 10:42 AM CDT [facility] HEMOGLOBIN 8.5(L) 11.8 - 14.8 g/dL 10/12/2024 10:42 AM T [facility] HEMATOCRIT 29.2(L) 35.5 - 44.0 % 10/12/2024 10:42 AM CDT [facility] MCV 81.8(L) 82.0 - 99.0 fL 10/12/2024 10:42 AM [employer] [facility] MCH 23.8(L) 27.2 - 32.6 pg 10/12/2024 10:42 AM CDT [facility] MCHC 29.1(L) 31.5 - 35.5 g/dL 10/12/2024 10:42 AM T [facility] PLATELETS 392(H) 140 - 350 K/uL 10/12/2024 10:42 AM T [facility] MPV 9.3 9.3 - 12.4 fL 10/12/2024 10:42 AM [employer] [facility] RDW 18.4(H) 11.5 - 14.5 % 10/12/2024 10:42 AM [employer] [facility] RDW-STDEV 54.4(H) 37.1 - 48.7 fL 10/12/2024 10:42 AM [employer] [facility] Blood Venipuncture / Unknown 10/12/2024 9:47 AM CDT 10/12/2024 10:31 AM CDT [employer] [employer] [facility] HEMATOLOGY ORDERABLES Fin al Result Performing Organization Address City/[facility]/ZIP Co de Phone Number [facility] [employer] [facility] [id number] [address] [place] [address] * (ABNORMAL) HEMOGLOBIN A1C (10/12/2024 9:47 AM CDT) HEMOGLOBIN A1C 6.0(H) <5.7 % 10/12/2024 10:59 AM CDT [facility] EST. AVG GLUCOSE, A1C 126 mg/dL 10/12/2024 10:59 AM CDT [facility] Blood Venipuncture / Unknown 10/12/2024 9:47 AM CDT 10/12/2024 10:31 AM CDT Narrative [facility] - 10/12/2024 10:59 AM CDT HGB A1C INTERPRETATION NORMAL: <5.7% PRE-DIABETES: 5.7 - 6.4% DIABETES: 6.5% OR GREATER [employer] [employer] CHEMISTRY ORDERABLES Hillary l Result Performing Organization Address City/[facility]/ZIP Co de Phone Number [facility] [employer] [facility] [id number] [address] [place] [address] * (ABNORMAL) BASIC METABOLIC PANEL (10/12/2024 9:47 AM CDT) SODIUM 137 136 - 145 mmol/L 10/12/2024 11:17 AM CDT [facility] POTASSIUM 4.4 3.5 - 5.0 mmol/L 10/12/2024 11:17 AM CDT [facility] CHLORIDE 102 98 - 107 mmol/L 10/12/2024 11:17 AM CDT [facility] CO2 24 22 - 29 mmol/L 10/12/2024 11:17 AM T [facility] CALCIUM 10.1 8.6 - 10.2 mg/dL 10/12/2024 11:17 AM [facility]. [facility] BUN 16 8 - 23 mg/dL 10/12/2024 11:17 AM [facility] CREATININE 0.86 0.51 - 0.95 mg/dL 10/12/2024 11:17 AM [facility] GLUCOSE 149(H) 74 - 99 mg/dL 10/12/2024 11:17 AM [facility] GFR >60 >=60 mL/min/1.7 3 sq meter 10/12/2024 11:17 AM [facility] Comment:eGFR calculated with 2020 CKD-EPI equation. Vegetarian diet, extremely high or low muscle mass, and may affect results. Cystatin C with Glomerular Filtration Rate is a suitable alternative for these patients. ANION GAP 11 8 - 16 mmol/L 10/12/2024 11:17 AM T [facility] Blood Venipuncture / Unknown 10/12/2024 9:47 AM CDT 10/12/2024 10:31 AM CDT [employer] PAY STATION ATTENDANT CHEMISTRY ORDERABLES Hillary l Result [facility] CLIA# [id number] [address] [place] [address] * EKG 12-LEAD (10/12/2024 9:42 AM CDT) 10/12/2024 9:42 AM CDT Narrative INTERFACE SYSTEM - 10/12/2024 1:30 PM T [facility] [address] [place] [address] Test Date: 2024-10-12 Pat Name: DANITA ATKINS Department: 36 Room: Gender: Female Hub Associate: helder : 1955 Requested By: MARIA ESTHER Gutierrez Order Number: [id number] Reading MD: Esteban Oswald Measurements Intervals [place] Rate: 88 P: 45 NH: 204 QRS: -36 QRSD: 159 T: 31 QT: 383 QTc: 464 Interpretive Statements Sinus rhythm Right bundle branch block Probable left ventricular hypertrophy Electronically Signed On 10-12-2024 13:30:45 CDT by Esteban Oswald Procedure Note Esteban Oswald MD - 10/12/2024 [facility] [address] [place] [address] Test Date: 2024-10-12 Pat Name: DANITA ATKINS Department: 36 Room: Gender: Female Hub Associate: [facility] : 1955 Requested By: MARIA ESTHER Gutierrez Order Number: [id number] Reading MD: Esteban Oswald Measurements Intervals [place] Rate: 88 P: 45 NH: 204 QRS: -36 QRSD: 159 T: 31 QT: 383 QTc: 464 Interpretive Statements Sinus rhythm Right bundle branch block Probable left ventricular hypertrophy Electronically Signed On 10-12-2024 13:30:45 CDT by Esteban Oswald us [employer] PAY STATION ATTENDANT ECG ORDERABLES Final Res ult INTERFACE SYSTEM Refer to clinic/hospital department * (ABNORMAL) PTH INTACT (10/04/2024 11:32 AM CDT) PTH INTACT 171(H) 16 - 77 pg/mL [facility] Comment: Interpretive Guide Intact PTH Calcium ------- Normal Parathyroid Normal Normal Hypoparathyroidism Low or Low Normal Low Hyperparathyroidism Primary Normal or High High Secondary High Normal or Low Tertiary High High Non-Parathyroid Hypercalcemia Low or Low Normal High Test Performed at: [facility] [address] [phone] Nicole Montano MD Blood 10/04/2024 11:3 2 AM CDT 10/04/2024 11:32 AM CDT Maria Esther Teran MD CHEMISTRY ORDERABLES Final Resul t Performing Organization Address [facility] Co de Phone Number [facility] [phone] [facility] [address] [place] [address] * CALCIUM IONIZED (10/04/2024 11:32 AM CDT) CALCIUM IONIZED 5.1 4.7 - 5.5 mg/dL [facility] Comment: Test Performed at: [facility] [address] [place] [phone] Nicole Montano MD Blood 10/04/2024 11:3 2 AM CDT 10/04/2024 11:32 AM CDT Maria Esther Teran MD CHEMISTRY ORDERABLES Final Resul t Performing Organization Address [facility] de Phone Number [facility] [phone] [facility] [address] from Last 3 Months Insurance [facility] Advance Directives For more information, please contact: [phone] * Full Code (Latest Code Status on File) Date Activated Date Inactivated Comments 10/08/2017 12:58 PM 10/09/2017 4:06 PM * Full Code Date Activated Date Inactivated Comments 10/08/2017 7:06 AM 10/08/2017 12:58 PM * Full Code Date Activated Date Inactivated Comments 10/08/2017 6:07 AM 10/08/2017 7:06 AM Care Teams Mixing Machine Tender Cork Rod Relationship Specialty Start Date End Date Kiran Ly MD [address] [place] [phone] PCP - General Internal Medicine 05/13/20
--- OUTSIDE RECORDS SUMMARY | 2024-12-07 08:44 | XMS_ITS | Clinical Summary ---
Author Organization [facility] Address [address] [place] [address] Care Team Providers Care Counter Server Name Role Phone Kiran Ly MD Primary Care Provider [phone] Source Comments [facility],non-owned Affiliates and Associated Physician Practices is amultiple site organization consisting of ambulatory clinics and hospital sitesin [place], [place], [place] and [place]. This disclosure is being madepursuant to the Care Everywhere program and may not contain all information available regarding this patient. Last updated 18.[facility] Social History Tobacco Use Types Packs/Day Years Used Date Smoking Tobacco: Never Assessed Comments Unknown Sex and Gender Information Value Date Recorded Sex Assigned at Not on file Legal Sex Female 5:19 AM DICE TABLE OPERATOR Gender Identity Not on file Sexual Orientation [...] patient's age to complete this topic Insurance [employer] ADV PPO SELF PAY NO INSURANCE Member Subscriber Plan / Payer (Ef fective for All Dates) Name:Danita Atkins Member ID:Not on file Relation to Subscriber:Not on file Name:DANITA ATKINS Subscriber ID:Not on file (Home) Address: [address] [place] [address] Payer ID:Not on file Group ID:Not on file Type:Self Pay Address: [place], [place] MEDICARE Care Teams Counter Server Relationship Specialty Start Date End Date Kiran Ly MD [address] [place] [address] PCP - General 03/18/22
--- OUTSIDE RECORDS SUMMARY | 2024-12-07 08:44 | XMS_ITS | Clinical Summary ---
Author Organization [facility] Address [address] [place] [address] Care Team Providers Care Metal Mine Inspector Name Role Phone Kiran Ly MD Primary Care Provider [phone] Social History Tobacco Use Types Packs/Day Years [...] complete this topic Insurance MEDICARE PART A [facility] Care Teams Metal Mine Inspector Relationship Specialty Start Date End Date Kiran Ly MD [address] [place] [phone] PCP - General INTERNAL MEDICINE 06/01/22
--- OUTSIDE RECORDS SUMMARY | 2024-12-07 08:44 | XMS_ITS | Encounter Summary ---
Author Organization [facility] Address 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 [address] Primary hyperparathyroidism 12/11/2024 6:45 AM CDT - 12/11/2024 8:51 AM CDT Surgery [facility] Operating Room [address] [place] [address] Vaibhav Teran MD [address] [facility] [address] PARATHYROID RE-EXPLORATION WITH RE-IMPLANTATION 12/19/2024 2:00 PM CDT Office Visit [facility] EAR, NOSE AND THROAT WILL [facility] [address] [place] [address] Kam Justin PA [address] [place] [phone] Scheduled Procedures Name Priority Associated Diagnoses Date/Ti me PARATHYROIDECTOMY Primary hyperparathyroidism 12/11/2024 6:45 AM CDT documented as of this encounter Visit Diagnoses Not on filedocumented in this encounter Care Teams Semiautomatic Taper Operator Relationship Specialty Start Date End Date Kiran Ly MD [address] [facility] [address] [place] [address] PCP - General Internal Medicine 05/13/20 documented as of this encounter
--- OUTSIDE RECORDS SUMMARY | 2024-12-07 08:44 | XMS_ITS | Encounter Summary ---
Author Organization [facility] Address 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 [address] [address] Primary hyperparathyroidism 12/11/2024 6:45 AM CDT - 12/11/2024 8:51 AM CDT Surgery [facility] Operating Room [address] [place] [address] Vaibhav Teran MD [address] [facility]. [facility] [address] [place] [address] PARATHYROID RE-EXPLORATION WITH RE-IMPLANTATION 12/19/2024 2:00 PM CDT Office Visit [facility] EAR, NOSE AND THROAT WILL [facility] [address] [place] [address] Kam Justin PA [address] [place] [phone] Scheduled Procedures Name Priority Associated Diagnoses Date/Ti me PARATHYROIDECTOMY Primary hyperparathyroidism 12/11/2024 6:45 AM CDT documented as of this encounter Visit Diagnoses Not on filedocumented in this encounter Care Teams Motor Bus Driver Relationship Specialty Start Date End Date Kiran Ly MD [address] [facility] [address] [place] [address] PCP - General Internal Medicine 05/13/20 documented as of this encounter
== END 2024-12-07 08:40 | disposition home or self-care (01) ==
PROVIDERS: PCP Emergency Medicine; Visit Provider Nurse Practitioner
DX: Z12.31 Encounter for screening mammogram for malignant neoplasm of breast (principal)
CPT/HCPCS: 77063; 77067

== ENCOUNTER 2025-03-19 05:30 | Outpatient (CLI) | payer OTHER, SELFPAY ==
--- NOTE | 2025-03-08 10:08 | SUR.PREOP ---
[facility] capsule endoscopy instructions emailed. Patient to call us if she has any questions about the instructions.
--- OUTSIDE RECORDS SUMMARY | 2025-03-19 05:35 | XMS_ITS | Encounter Summary ---
Author Organization [facility] Address [address] [place] [address] Care Team Providers Care Bowling Ball Finisher Name Role Phone Kiran Ly MD Primary Care Provider [phone] Encounter Details Date Type Department Care Team (Late st Contact Info) Description 02/26/2025 Results Follow-Up [facility] EAR, NOSE AND THROAT [place] Celi [facility] [address] [facility] [address] [place] [address] Vaibhav Teran MD 607 [facility]. [facility] [address] [place] [address] T4 FREE, TSH Social History Tobacco Use Types Packs/Day Years Used Date Smoking Tobacco: Never Smokeless Tobacco: Never Alcohol Use Standard Drinks/Week Comments Yes 0 (1 standard drink = 0.6 oz pur e alcohol) rarely Feeling Safe Answer Date Recorded Are you in a relationship wi th someone who hurts you emotionally and/or physically? Patient unable to answer 12/11/2024 Food Insecurity Answer Date Recorded Patient needs follow up regardin 11/23/2024 Transportation Needs Answer Date Record ed Patient needs follow up regardin 11/23/2024 Housing Stability Answer Date Recorded Social/Environmental Concerns No concerns Utility Needs Answer Date Recorded Patient needs follow up regardin 11/23/2024 Comments No Sex and Gender Information Value Date Recorded Sex Assigned at Not on file Legal Sex Female 3:41 AM TRUST AND ESTATES PARALEGAL Gender Identity Not on file Sexual Orientation Not on file documented as of this encounter Plan of Treatment Upcoming Encounters Date Type Department Care Team (Late st Contact Info) Description 05/03/2025 1:30 PM CDT Office Visit [facility] Oncology and Hematology - Luis [address] [place] [address] Parth Becker MD [address] [facility] [address] [place] [address] 08/28/2025 8:30 AM TRUST AND ESTATES PARALEGAL Office Visit [facility] EAR, NOSE AND THROAT [facility] [address] [facility] [facility] [address] [place] [address] Vaibhav Teran MD [address] [facility] [address] [place] [address] documented as of this encounter Visit Diagnoses Not on filedocumented in this encounter Care Teams Bowling Ball Finisher Relationship Specialty Start Date End Date Kiran Ly MD [address] [place] [id number] PCP - General Internal Medicine 05/13/20 documented as of this encounter
--- OUTSIDE RECORDS SUMMARY | 2025-03-19 05:35 | XMS_ITS | Clinical Summary ---
Author Organization [facility] Address [address] [place] [address] Phone Care Team Providers Care Industrial Safety And Health Specialist Name Role Phone Kiran Ly MD Primary Care Provider [phone] Allergies Active Allergy Reactions Criticality Noted Date Comments Latex Itching Low 10/06/2017 Morphine Nausea and Vomiting Low 10/06/2017 Medications metFORMIN (GLUCOPHAGE) 500 mg tablet Take 500 mg by mouth 2 times daily with meals. Active gabapentin (NEURONTIN) 600 mg tablet Take 600 mg by mouth 3 times daily. Active aspirin (MARCO ANTONIO CHEWABLE) 81 mg Tablet, Chewable Take 81 mg by mouth daily. Active ferrous sulfate 325 mg (65 mg iron) tablet Take 325 mg by mouth 2 times daily. Active candesartan (ATACAND) 32 mg Tablet Take 32 mg by mouth daily. Active latanoprost (XALATAN) 0.005 % solution Administer 1 Drop in both eyes daily at bedtime. Active traZODone (DESYREL) 50 mg tablet Take 50 mg by mouth daily at bedtime. Active conjugated estrogens (PREMARIN) 0.625 mg/gram vaginal cream Insert vaginally. Active diltiaZEM (CARDIZEM CD) 180 mg Controlled Delivery 24 hour capsule diltiazem CD 180 mg capsule,extende d release 24 hr Active buPROPion HCL (WELLBUTRIN SR) 100 mg Sustained Release 12 hour tablet bupropion HCl SR 100 mg tablet,12 hr sustained-relea se Active ezetimibe (ZETIA) 10 mg tablet TAKE 1 TABLET BY MOUTH ONCE DAILY 020 Active meloxicam (MOBIC) 7.5 mg tablet meloxicam [...] Take 1,000 mcg by mouth daily. Active HYDROcodone-acetaminop hen (NORCO) 5-325 mg tabletIndications:Prim joceline hyperparathyroidism Take 1 Tablet by mouth every 4 hours as needed for Pain, Moderate. Max Daily Amount: 6 Tablets 10 Tablet 12/13/19 25 12:07 PM CDT 025 Active calcium as CARBONATE (TUMS ES) 750 mg (300 mg elemental) Tablet, Chewable Take 2 Tablets (600 mg) by mouth every 6 hours. 500 Tablet 025 Active calcitRIOL (ROCALTROL) 0.25 mcg capsule Take 1 Capsule (0.25 mcg) by mouth every 6 hours. 60 Capsule 1 12/13/19 25 12:07 PM CDT 025 Active levothyroxine 137 mcg tablet Take 1 Tablet (137 mcg) by mouth daily in the morning. 90 Tablet 025 Active levothyroxine 150 mcg tablet TAKE 1 TABLET BY MOUTH ONCE DAILY IN THE MORNING 30 Tablet 025 2024 Disconti nued(Reo rder) Active Problems No known active problems Encounters Date Type Department Care Team Description 03/03/2025 Refill [facility] EAR, NOSE AND THROAT [facility] CANCER [place] [address] [facility] [address] [place] [address] Vaibhav Teran MD 02/28/2025 External Device Data STL ABSTRACTION Provider, Abstract 02/26/2025 Orders Only [facility] EAR, NOSE AND THROAT [facility] [address] [facility] [address] [place] [address] Vaibhav Teran MD Thyroid nodule (Primary Dx) 02/26/2025 Orders Only [facility] EAR, NOSE AND THROAT [address] [address] Vaibhav Teran MD 02/26/2025 Results Follow-Up [facility] EAR, NOSE AND THROAT [address] [address] Vaibhav Teran MD T4 FREE, TSH 02/20/2025 8:15 AM CDT Office Visit [facility] EAR, NOSE AND THROAT [address] [address] Vaibhav Teran MD Primary hyperparathyroidism (Primary Dx); Thyroid nodule; Postoperative hypothyroidism 02/07/2025 External Device Data STL ABSTRACTION Provider, Abstract 02/04/2025 Refill [facility] EAR, NOSE AND THROAT [address] [address] Vaibhav Teran MD 02/01/2025 Refill [facility] [address] [place] [address] Vaibhav Teran MD 01/06/2025 Refill [facility] EAR, NOSE AND THROAT [address] [address] Vaibhav Teran MD 12/19/2024 2:00 PM CDT Office Visit [facility] EAR, NOSE AND THROAT [address] [address] Kam Justin PA Primary hyperparathyroidism (Primary Dx) from Last 3 Months Immunizations Immunization Administration [...] on file 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 Gender Identity Not on file Sexual Orientation Not on file Last Filed Vital Signs Vital Sign Reading Time Taken Comments Blood Pressure 122/48 12/12/2024 8:46 AM CDT Pulse 67 12/12/2024 8:46 AM CDT Temperature 36.3 C (97.4 F) 12/12/2024 8:46 AM CDT Respiratory Rate 15 12/12/2024 8:46 AM CDT Oxygen Saturation 100% 12/12/2024 8:46 AM CDT Inhaled Oxygen Concentration - - Weight 111.4 kg (245 lb 11.2 oz) 12/11/2024 7:15 AM CDT Height 162.6 cm (5' 4) 12/11/2024 7:15 AM CDT Body Mass Index 42.17 12/11/2024 7:15 AM CDT Plan of Treatment Upcoming Encounters Date Type Department Care Team (Late st Contact Info) Description 05/03/2025 1:30 PM CDT Office Visit [facility] Oncology and Hematology - Luis [address] [facility] [address] [place] [address] Parth Becker MD [address] [facility] [address] [place] [address] 08/28/2025 8:30 AM SPORTS BROADCASTING INTERNSHIP Office Visit [facility] EAR, NOSE AND THROAT [facility] CANCER BEL[address] [facility] [facility] [facility] [address] [place] [address] Vaibhav Teran MD [address] [place] [address] Health Maintenance Due Date Last Done Comments [...] 04/15/2018 OSTEOPOROSIS SCREENING 2020 INFLUENZA VACCINE (#1) 2025 04/03/2020, 2017 Pre-Diabetes and Diabetes Screening 10/13/202710/12 Procedures Procedure Name Priority Date/Time Associated Diagnosis Comments TSH Routine 02/22/2025 9:39 AM CDT Thyroid nodule T4 FREE Routine 02/22/2025 9:39 AM CDT Thyroid nodule PTH INTACT Routine 12/20/2024 9:37 AM CDT Primary hyperparathyroidism CALCIUM LEVEL Routine 12/20/2024 9:37 AM CDT Primary hyperparathyroidism HEMOGLOBIN A1C Routine 10/12/2024 9:47 AM CDT from Last 3 Months or Most Recently Relevant to Health Maintenance Results * (ABNORMAL) TSH (02/22/2025 9:39 AM CDT) TSH 0.12(L) 0.40 - 4.50 mIU/L [facility] Comment: Test Performed at: [facility] [address] [place] [address] Nicole Montano MD Blood 02/22/2025 9:39 AM CDT 02/22/2025 9:41 AM CDT Vaibhav Teran MD CHEMISTRY ORDERABLES Final Resul t Performing Organization Address [facility] Co de Phone Number [facility] [phone] [facility] [address] [place] [phone] * T4 FREE (02/22/2025 9:39 AM CDT) T4 FREE 1.3 0.8 - 1.8 ng/dL [facility] Comment: Test Performed at: [facility] [address] [place] [phone] Nicole Montano MD Blood 02/22/2025 9:39 AM CDT 02/22/2025 9:41 AM CDT Vaibhav Teran MD CHEMISTRY ORDERABLES Final Resul t Performing Organization Address [facility] de Phone Number [facility] [phone] [facility] [address] [place] [phone] * PTH INTACT (12/20/2024 9:37 AM CDT) PTH INTACT 17 16 - 77 pg/mL [facility] Comment: Interpretive Guide Intact PTH Calcium ------- Normal Parathyroid Normal Normal Hypoparathyroidism Low or Low Normal Low Hyperparathyroidism Primary Normal or High High Secondary High Normal or Low Tertiary High High Non-Parathyroid Hypercalcemia Low or Low Normal High FASTING:NO FASTING: NO Test Performed at: [facility] [address] [place] [phone] Nicole Montano MD Blood 12/20/2024 9:37 AM CDT 12/20/2024 9:38 AM CDT Kam JONES CHEMISTRY ORDERABLES Final R esult Performing Organization Address City/[facility]/ZIP Co de Phone Number [facility] [phone] [facility] [employer] [address] * CALCIUM LEVEL (12/20/2024 9:37 AM CDT) Pathologist [facility] CALCIUM 9.6 8.6 - 10.4 mg/dL [facility] Comment: FASTING:NO FASTING: NO Test Performed at: [facility] [address] Nicole Montano MD Blood 12/20/2024 9:37 AM CDT 12/20/2024 9:38 AM CDT Kam JOENS CHEMISTRY ORDERABLES Final R esult Performing Organization Address [facility] Co de Phone Number [place] [phone] [facility] [employer] [address] * (ABNORMAL) HEMOGLOBIN A1C (10/12/2024 9:47 AM CDT) [facility] HEMOGLOBIN A1C 6.0(H) <5.7 % 10/12/2024 10:59 AM CDT [facility] EST. AVG GLUCOSE, A1C 126 mg/dL 10/12/2024 10:59 AM CDT [facility] Blood Venipuncture / Unknown 10/12/2024 9:47 AM CDT 10/12/2024 10:31 AM CDT Narrative [facility] - 10/12/2024 10:59 AM CDT HGB A1C INTERPRETATION NORMAL: <5.7% PRE-DIABETES: 5.7 - 6.4% DIABETES: 6.5% OR GREATER [employer] COUNSELING DEPARTMENT CHAIR CHEMISTRY ORDERABLES Hillary l Result Performing Organization Address City/[facility]/ZIP Co de Phone Number [facility] [employer] [facility] CLIA# [id number] [address] [place] [address] from Last 3 Months or Most Recently Relevant to Health Maintenance Insurance [facility] [employer] Medicare Part D [facility] Member Subscriber Plan / Payer (Ef fective 2023-Present) Name:Masury, Danita Claire Relation to Subscriber:Self Name:Danita Atkins Claire Payer ID:[id number] (NAIC) Type:PPO Address: [place] [id number] Advance Directives For more information, please contact: [phone] * Full Code (Latest Code Status on File) Date Activated Date Inactivated Comments 12/11/2024 12:16 PM 12/12/2024 3:28 PM * Full Code Date Activated Date Inactivated Comments 10/08/2017 12:58 PM 10/09/2017 4:06 PM * Full Code Date Activated Date Inactivated Comments 10/08/2017 7:06 AM 10/08/2017 12:58 PM * Full Code Date Activated Date Inactivated Comments 10/08/2017 6:07 AM 10/08/2017 7:06 AM Care Teams Industrial Safety And Health Specialist Relationship Specialty Start Date End Date Kiran Ly MD [address] [place] [phone] PCP - General Internal Medicine 05/13/20
--- OUTSIDE RECORDS SUMMARY | 2025-03-19 05:35 | XMS_ITS | Encounter Summary ---
Author Organization [facility] Address [address] [place] [address] Care Team Providers Care Car Unloader Helper Name Role Phone Kiran Ly MD Primary Care Provider [phone] Reason for Visit * Reason Onset Date Comments Medication Refill 02/01/2025 Encounter Details Date Type Department Care Team ([facility] Contact Info) Description 02/01/2025 Refill [facility] [address] [address] [place] [address] Vaibhav Teran MD [address] [facility]. 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 Gender Identity Not on file Sexual Orientation Not on file documented as of this encounter Plan of Treatment Upcoming Encounters Date Type Department Care Team (Late Contact Info) Description 05/03/2025 1:30 PM CDT Office Visit [facility] Oncology and Hematology - Luis [address] [place] [address] Parth Becker MD [address] [facility] [address] [place] [address] 08/28/2025 8:30 AM CREW CALLER Office Visit [facility] EAR, NOSE AND THROAT [facility] [address] [facility] [address] [place] [address] Vaibhav Teran MD [address] [facility] [address] [place] [address] documented as of this encounter Visit Diagnoses Not on filedocumented in this encounter Care Teams Car Unloader Helper Relationship Specialty Start Date End Date Kiran Ly MD [address] [place] [address] PCP - General Internal Medicine 05/13/20 documented as of this encounter
--- OUTSIDE RECORDS SUMMARY | 2025-03-19 05:35 | XMS_ITS | Clinical Summary ---
Author Organization [facility] Address [address] [place] [address] Care Team Providers Care Ferry Hand Name Role Phone Kiran Ly MD Primary Care Provider [phone] Social History Tobacco Use Types Packs/Day Years [...] complete this topic Insurance MEDICARE PART A [facility] Care Teams Ferry Hand Relationship Specialty Start Date End Date Kiran Ly MD [address] [place] [phone] PCP - General INTERNAL MEDICINE 06/01/22
--- OUTSIDE RECORDS SUMMARY | 2025-03-19 05:35 | XMS_ITS | Encounter Summary ---
Author Organization [facility] Address [address] [place] [address] Care Team Providers Care Rate Analyst Name Role Phone Kiran yL MD Primary Care Provider [phone] Encounter Details Date Type Department Care Team (Late st Contact Info) Description 09/21/2000 Outpatient Historical [facility], [address], 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 [address] [place] [address] Vaibhav Teran MD [address] [facility] [address] [place] [address] documented as of this encounter Visit Diagnoses Not on filedocumented in this encounter Care Teams Rate Analyst Relationship Specialty Start Date End Date Kiran Ly MD [address] [place] [address] PCP - General Internal Medicine 05/13/20 documented as of this encounter
--- OUTSIDE RECORDS SUMMARY | 2025-03-19 05:35 | XMS_ITS | Encounter Summary ---
Author Organization [facility] Address 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 [address] [place] [address] Parth Bceker MD [address] [facility] [address] [place] [address] 08/28/2025 8:30 AM RESEARCH AGRICULTURAL ENGINEER Office Visit [facility] EAR, NOSE AND THROAT [place] [facility] [address] [facility] [address] [place] [address] Vaibhav Teran MD [address] [facility] [address] [place] [address] documented as of this encounter Visit Diagnoses Not on filedocumented in this encounter Care Teams Branch Maker Relationship Specialty Start Date End Date Kiran Ly MD [address] [place] [address] PCP - General Internal Medicine 05/13/20 documented as of this encounter
[2025-03-19] MEDS: SIMETHICONE ORAL SUSPENSION 20 MG/0.3 ML 30 ML BOTTLE 1.8 ML PO (06:15)
--- NOTE | 2025-03-19 14:54 | SUR.PHASEII ---
Patient returned to the GI Lab at 1445 for recorder box removal. Patient voiced no complaints. States they have understanding of instructions. Patient left ambulatory.
--- NOTE | 2025-03-19 14:54 | SUR.PREOP ---
Patient brought to GI Lab. Instructions for patient undergoing Capsule Endoscopy reviewed with patient. Consent form signed. Sensor array applied to patient's abdomen and connected to recorded. Patient swallowed capsule with 16 ozs of water infused with Simethicone. Patient instructed they may have clear liquids at 0830 this AM and eat or drink at 1030 this AM. Patient instructed to return to GI Lab at 1500 this afternoon for removal of recording device and to call [phone] or to return to the hospital if any nausea and vomiting or abdominal pain is experienced.
== END 2025-03-19 05:31 | disposition home or self-care (01) ==
PROVIDERS: PCP Emergency Medicine; Referring Provider Nurse Practitioner; Visit Provider Internal Medicine Gastroenterology
PROC: 0DJ07ZZ Inspection of Upper Intestinal Tract, Via Natural or Artificial Opening (ICD-10-PCS; CPT 91110; principal; 2025-03-19 07:00)
DX: Z01.818 Encounter for other preprocedural examination (principal); D50.9 Iron deficiency anemia, unspecified
CPT/HCPCS: 91110

== ENCOUNTER 2025-05-03 13:49 | Outpatient (CLI) | payer OTHER, SELFPAY ==
[2025-05-03 14:04] LABS: Hematocrit 36.7 % (37.0-47.0); Hemoglobin 11.1 g/dL (12.0-15.0); Immature Granulocyte Percent A 0.5 % (0-0.5); Lymphocytes Absolute Auto 1.25 K/mm3 (0.9-3.2); Mean Corpuscular HGB Conc 30.2 g/dl (32-36); Mean Corpuscular Hemoglobin 27.7 pg (26-34); Mean Corpuscular Volume 91.5 fl (80-100); Nucleated Red Blood Cells Absolute Auto 0.000 K/mm3 (0.0-0.012); Nucleated Red Blood Cells Perc 0.0 % (0.0-0.2); Platelet Count Result 240 k/mm3 (150-375); Red Blood Count 4.01 M/mm3 (4.2-5.4); White Blood Count 6.2 K/mm3 (4.5-10.0)
[2025-05-03 16:20] LABS: Alanine Aminotransferase 22 U/L (6-35); Albumin Level 4.4 g/dL (3.5-5.1); Alkaline Phosphatase 94 U/L (38-126); Anion Gap 8 mmol/L (4-12); Aspartate Amino Transferase 42 U/L (14-36); Bilirubin,Total 0.3 mg/dL (0.2-1.3); Blood Urea Nitrogen 24 mg/dL (7-17); Calcium 9.1 mg/dL (8.4-10.2); Carbon Dioxide 26 mmol/L (22-30); Chloride 103 mmol/L (98-107); Estimated Glomerular Filt Rate 52; Glucose 148 mg/dL (65-110); Potassium 4.8 mmol/L (3.4-5.0); Sodium 137 mmol/L (137-145); Total Protein 7.5 g/dL (6.3-8.2)
[2025-05-03 16:21] LABS: Iron 74 ug/dL (37-170)
[2025-05-03 16:33] LABS: Percent Iron Saturation 19 % (20-50)
[2025-05-03 17:02] LABS: Ferritin 9.61 ng/mL (11.1-264)
[2025-05-03 17:34] LABS: Vitamin B12 > 1000.0 pg/mL (239-931)
== END 2025-05-03 13:50 | disposition home or self-care (01) ==
LOC: ANHLAB 13:50
PROVIDERS: PCP Emergency Medicine; Visit Provider Internal Medicine Hematology & Oncology
DX: D64.9 Anemia, unspecified (principal)
CPT/HCPCS: 36415; 80053; 82607; 82728; 82746; 83540; 83550; 83921; 84238; 85025